=== PATIENT | female | born 1990 | race Caucasian/White ===

== ENCOUNTER 2017-12-02 11:24 | Outpatient (CLI) | payer MEDICAID ==
[2017-12-02 18:56] LABS: BASOPHILS % (AUTO) 0.9 %; EOSINOPHILS # (AUTO) 0.2 10^3/uL (0.0-0.7); HGB - HEMOGLOBIN 13.1 g/dL (12.0-16.0); LYMPHOCYTES # (AUTO) 1.5 10^3/uL (1.5-3.5); LYMPHOCYTES % (AUTO) 30.4 %; MEAN CORPUSCULAR HEMOGLOBIN 29.6 pg (27.0-31.0); MEAN CORPUSCULAR HGB CONC 32.9 g/dL (32.0-36.0); MEAN CORPUSCULAR VOLUME 90.1 fL (81.0-99.0); MEAN PLATELET VOLUME 7.4 fL (7.9-10.8); MONOCYTES # (AUTO) 0.4 10^3/uL (0.0-1.0); MONOCYTES % (AUTO) 7.1 %; NEUTROPHILS # (AUTO) 2.8 10^3/uL (1.5-6.6); NEUTROPHILS % (AUTO) 56.6 %; PLT - PLATELET COUNT 333 10^3/uL (130-450); RED BLOOD COUNT 4.43 10^6/uL (4.20-5.40); RED CELL DISTRIBUTION WIDTH 14.1 % (12.0-15.0)
[2017-12-02 19:08] LABS: ALBUMIN 4.2 g/dL (3.2-5.5); ALBUMIN/GLOBULIN RATIO 1.2 (1.0-2.2); BILIRUBIN,TOTAL 0.4 mg/dL (0.2-1.0); CALCIUM 9.2 mg/dL (8.5-10.3); CREATININE 0.7 mg/dL (0.4-1.0); TOTAL PROTEIN 7.7 g/dL (6.7-8.2)
== END 2017-12-02 11:25 | disposition home or self-care (01) ==
LOC: LAB.N 11:24
PROVIDERS: ATTEND Family Medicine
DX: R53.83 Other fatigue (principal); R19.7 Diarrhea, unspecified; F41.9 Anxiety disorder, unspecified
CPT/HCPCS: 36415; 80053; 84443; 85025; 85651

== ENCOUNTER 2018-04-10 17:57 | Emergency (ER) | payer MEDICAID ==
[2018-04-10 18:12] VITALS: BP 125/89
== END 2018-04-10 18:09 | disposition left against medical advice (07) ==
LOC: ED 17:57
DX: Z53.21 Procedure and treatment not carried out due to patient leaving prior to being seen by health care provider (principal)

== ENCOUNTER 2018-07-01 12:49 | Emergency (ER) | payer MEDICAID | END 2018-07-01 13:55 | disposition left against medical advice (07) | LOC: ED 12:49 | DX: Z53.21 Procedure and treatment not carried out due to patient leaving prior to being seen by health care provider (principal) ==

== ENCOUNTER 2018-07-23 10:38 | Outpatient (CLI) | payer MEDICAID ==
[2018-07-23 20:24] LABS: FOLLICLE STIMULATING HORMONE 3.44 mIU/mL
[2018-07-23 20:25] LABS: LUTEINIZING HORMONE 6.88 mIU/mL
== END 2018-07-23 23:59 | disposition home or self-care (01) ==
LOC: LAB.N 10:38
PROVIDERS: ATTEND Nurse Practitioner Gerontology
DX: Z13.9 Encounter for screening, unspecified (principal)
CPT/HCPCS: 36415; 82670; 83001; 83002

== ENCOUNTER 2018-11-20 08:00 | Outpatient (CLI) | payer MEDICAID ==
[2018-11-20 18:24] LABS: CALCIUM 8.6 mg/dL (8.5-10.3); CREATININE 0.6 mg/dL (0.4-1.0)
[2018-11-20 18:35] LABS: BASOPHILS % (AUTO) 0.5 %; EOSINOPHILS # (AUTO) 0.2 10^3/uL (0.0-0.7); EOSINOPHILS % (AUTO) 2.1 %; HGB - HEMOGLOBIN 13.5 g/dL (12.0-16.0); LYMPHOCYTES # (AUTO) 1.2 10^3/uL (1.5-3.5); MEAN CORPUSCULAR HEMOGLOBIN 29.4 pg (27.0-31.0); MEAN CORPUSCULAR HGB CONC 32.6 g/dL (32.0-36.0); MEAN CORPUSCULAR VOLUME 90.1 fL (81.0-99.0); MEAN PLATELET VOLUME 7.3 fL (7.9-10.8); MONOCYTES # (AUTO) 0.7 10^3/uL (0.0-1.0); MONOCYTES % (AUTO) 9.7 %; NEUTROPHILS # (AUTO) 5.4 10^3/uL (1.5-6.6); NEUTROPHILS % (AUTO) 71.7 %; PLT - PLATELET COUNT 329 10^3/uL (130-450); RED CELL DISTRIBUTION WIDTH 13.1 % (12.0-15.0); WHITE BLOOD COUNT 7.5 x10^3/uL (4.8-10.8)
== END 2018-11-20 23:59 | disposition home or self-care (01) ==
LOC: LAB.WCP 08:00
PROVIDERS: ATTEND Family Medicine
DX: R19.7 Diarrhea, unspecified (principal)
CPT/HCPCS: 36415; 80048; 85025

== ENCOUNTER 2019-04-01 08:00 | Outpatient (CLI) | payer MEDICAID | END 2019-04-01 23:59 | disposition home or self-care (01) | LOC: LAB.R 08:00 | PROVIDERS: ATTEND Nurse Practitioner Gerontology | DX: R19.7 Diarrhea, unspecified (principal) | CPT/HCPCS: 81599; 87045; 87046; 87177; 87209 ==

== ENCOUNTER 2019-04-02 09:00 | Outpatient (CLI) | payer MEDICAID | END 2019-04-02 23:59 | disposition home or self-care (01) | LOC: LAB.R 09:00 | PROVIDERS: ATTEND Nurse Practitioner Gerontology | DX: R19.7 Diarrhea, unspecified (principal) | CPT/HCPCS: 87493 ==

== ENCOUNTER 2019-04-12 16:02 | Emergency (ER) | payer MEDICAID ==
--- NOTE | 2019-04-12 16:52 | ED Physician Documentation ---
History of Present Illness - Stated complaint Stated Complaint: SORE THROAT - Chief complaint Chief Complaint: Heent - Additonal information Additional information: This is a 29-year-old female history of asthma who presents with a feeling of neck discomfort. Patient denies any fever, rhinorrhea, cough, but states earlier today she developed some irritation in her throat, now she feels that her throat is irritated and swollen. This started after blowing her nose. She states that when she swallows it is painful. She denies rash, history of allergic reaction. This began out of the blue, did not start after eating. She denies fever. She feels like "a bone is out of place in the front of my neck" But denies trauma. No numbness, weakness, or vision changes. Review of Systems Constitutional: denies: Fever Throat: reports: Sore throat Cardiac: denies: Chest pain / pressure Respiratory: denies: Dyspnea GI: denies: Abdominal Pain Skin: denies: Rash Immunocompromised: denies: Immunocompromised PD PAST MEDICAL HISTORY - Past Medical History Respiratory: Asthma - Past Surgical History Past Surgical History: No - Present Medications Home Medications: Ambulatory Orders Medication Instructions Recorded Confirmed No Known Home Medications 04/10/18 04/10/18 - Allergies Allergies/Adverse Reactions: Allergies Allergy/AdvReac Type Severity Reaction Status Date / Time No Known Drug Allergies Allergy Verified 04/12/19 16:17 - Social History Does the pt smoke?: No Smoking Status: Never smoker Does the pt drink ETOH?: No Does the pt have substance abuse?: No - Immunizations Immunizations are current?: Yes - POLST Patient has POLST: No PD ED PE NORMAL - Vitals Vital signs reviewed: Yes - General General: Alert and oriented X 3 - HEENT HEENT: PERRL, Ears normal, Moist mucous membranes, Dentition benign, Other (Posterior pharynx is erythematous, there is no exudate. Airway is widely patent. There is some mild anterior lymphadenopathy.) - Neck Neck: Supple, no meningeal sign, No bony TTP, Other (No neck mass) - Cardiac Cardiac: RRR - Respiratory Respiratory: No respiratory distress, Clear bilaterally - Abdomen Abdomen: No: Non tender - Neuro Neuro: ride operator 2-12 intact, No motor deficit, Normal speech. No: Alert and oriented X 3 Results - Vitals Vitals: Vital Signs - 24 hr 04/12/19 04/12/19 16:16 18:14 Temperature 36.9 C 36.5 C Heart Rate 74 71 Respiratory 20 18 Rate Blood Pressure 115/60 125/77 O2 Saturation 100 99 Oxygen O2 Source Room air - Labs Labs: Laboratory Tests 04/12/19 17:31 Group A Strep Rapid Negative - Rads (name of study) XR neck Radiology: Other (Normal soft tissue XR of the neck) PD MEDICAL DECISION MAKING - ED course Complexity details: considered differential (pharyngitis, allergic reaction, URI, foreign body) ED course: Pt is very well appearing on exam, has a widely patent airway, no stridor or wheeze. no signs of anaphylaxis. Her discomfort did not begin after or during eating, and food impaction/foreign body is highly unlikely, and XR of the neck unremarkable. She has mild erythema consistent with a pharyngitis, which is likely viral. Strep swab negative. No neuro symptoms or trauma to suggest dissection. Pt does have some anterior lymphadenopathy. she was given dexamethasone and ibuprofen, and return precautions and PCP follow up discussed. Patient agreed, on repeat evaluation she continues to be very well appearing, and was discharged home. Departure - Departure Disposition: 01 Home, Self Care Clinical Impression: Sore throat Condition: Good Follow-Up: Aminah Walters ARNP [Primary Care Provider] - Comments: You were seen today for throat discomfort. Your x-ray looks okay today, and I think this throat discomfort is likely related to some irritation of your throat, possibly from a virus. We gave you steroid which should help calm down the throat. You may take ibuprofen 600 mg every 6 hours, and Tylenol 650 mg every 6 hours as needed for pain. Return to the emergency department if you are developing any difficulty breathing, neck swelling, or other concerning symptoms Discharge Date/Time: 04/12/19 18:15
[2019-04-12] MEDS ORDERED: DEXAMETHASONE 10 MG/ML VIAL PO STA (17:11)
[2019-04-12] MEDS ORDERED: CHERRY SYRUP 10 ML UDC PO ONE (17:11)
[2019-04-12] MEDS ORDERED: IBUPROFEN 100 MG/5 ML UDC PO STA (17:12)
--- NOTE | 2019-04-12 18:05 | XRAY Report ---
Reason: Anterior neck discomfort "like bone is out of plac Procedure Date: 04/12/2019 Accession Number: [id number] / [id number] Procedure: XR - Neck Soft Tissue CPT Code: Final Report FULL RESULT: EXAM: SOFT TISSUE NECK RADIOGRAPHY EXAM DATE: 04/12/2019 05:22 PM. CLINICAL HISTORY: Anterior neck discomfort like bone is out of place. COMPARISONS: None. TECHNIQUE: 2 views. FINDINGS: Soft Tissues: No prevertebral soft tissue swelling. The epiglottis and aryepiglottic folds are unremarkable. No tonsillar or adenoidal enlargement. No radiopaque foreign body. Regional Skeleton: Unremarkable for age. Other: The visualized lung apices are clear. IMPRESSION: Normal soft tissue neck radiography. [facility]
[2019-04-12 18:15] VITALS: BP 125/77
== END 2019-04-12 18:15 | disposition home or self-care (01) ==
LOC: ED 16:02
DX: J02.9 Acute pharyngitis, unspecified (principal)
CPT/HCPCS: 70360; 87070; 87430; 99282; 99284; A9270

== ENCOUNTER 2019-08-04 11:00 | Outpatient (CLI) | payer MEDICAID | END 2019-08-04 23:59 | disposition home or self-care (01) | LOC: LAB.R 11:00 | PROVIDERS: ATTEND Family Medicine | DX: R30.0 Dysuria (principal) | CPT/HCPCS: 87086 ==

== ENCOUNTER 2020-10-23 13:53 | Emergency (ER) | payer OTHER, MEDICAID ==
--- OUTSIDE RECORDS SUMMARY | 2020-10-23 13:55 | EXTERNAL MEDICAL SUMMARY RPT | Continuity of Care Document ---
:1990 Demographics Phone Unavailable Preferred Language Unknown Marital Status Unknown Moravian Affiliation Unknown Race Unknown Ethnic Group Unknown Author Organization [facility] Address [address] [phone] Phone Care Team Providers Name Role Phone PA-C Unavailable Unavailable Problems date description facility 20201005 Total score? All 20201005 Other and unspecified noninfectious gas troenteritis and All colitis 20201005 Noninfective gastroenteritis and coliti s, unspecified All 20201005 Never smoker All 20201005 Colitis All 20201005 Alcohol use All Vital Signs date measurement value source 20201005 weight_standard 129 lb 20201005 weight_metric 58.51 kg 20201005 temperature_standard 98.4 F 20201005 temperature_metric 36.89 C 20201005 respiration_rate 16 /min 20201005 height_standard 67 in 20201005 height_metric 170.18 cm 20201005 heart_rate 73 /min 20201005 BP_systolic 110 mm[Hg] 20201005 BP_diastolic 62 mm[Hg] 20201005 BMI 20.28 kg/m2
--- NOTE | 2020-10-23 14:20 | ED Physician Documentation ---
PD HPI ABD PAIN - Stated complaint Stated Complaint: RT LOWER ABD PX - Chief complaint Chief Complaint: Abd Pain - History obtained from History obtained from: Patient - History of Present Illness Timing - onset: Yesterday Timing - duration: Days (2) Timing - details: Gradual onset Pain level max: 7 Pain level now: 3 Quality: Sharp, Pain Location: RLQ Radiation: No: Chest, , Lower back, Left flank, Left shoulder, Right flank, Right shoulder, Upper back Improved by: Laying still Worsened by: Moving Associated symptoms: No: Fever, Nausea, Vomiting, Hematemesis, Diarrhea, Constipation, Vaginal bleeding, Vaginal dc Similar symptoms before: Has not had sx before - Additional information Additional information: 30-year-old female with right pelvic pain for the past day and a half. She was seen at the walk-in clinic and sent here for evaluation. No fevers. No nausea. No vomiting. LMP was 2 weeks ago. She states she has felt similar pain in the past but it always resolved on its own and this has lasted longer. Denies any possibility of . Negative urinalysis and negative hCG at the walk-in clinic earlier today. No diarrhea or constipation. Normal appetite. 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 : None HEENT: None Psych: None Musculoskeletal: None Derm: None - Past Surgical History Past Surgical History: No - Present Medications Home Medications: Ambulatory Orders Medication Instructions Recorded Confirmed No Known Home Medications 04/10/18 10/23/20 - Allergies Allergies/Adverse Reactions: Allergies Allergy/AdvReac Type Severity Reaction Status Date / Time No Known Drug Allergies Allergy Verified 10/23/20 13:55 - Social History Does the pt smoke?: No Smoking Status: Never smoker Does the pt drink ETOH?: No Does the pt have substance abuse?: No - Immunizations Immunizations are current?: Yes - POLST Patient has POLST: No PD ED PE NORMAL - Vitals Vital signs reviewed: Yes - General General: Alert and oriented X 3, No acute distress - HEENT HEENT: Moist mucous membranes - Neck Neck: Supple, no meningeal sign - Cardiac Cardiac: RRR - Respiratory Respiratory: No respiratory distress, Clear bilaterally - Abdomen Abdomen: Soft, Non distended, Other (Tender to palpation right low pelvic area. No tenderness at McBurney's point. No peritoneal signs. No rebound or guarding. Negative Rovsing, negative obturator.) - Back Back: No CVA TTP, No spinal TTP - Derm Derm: Warm and dry - Extremities Extremities: No edema, No calf tenderness / cord - Neuro Neuro: Alert and oriented X 3 - Psych Psych: Normal mood, Normal affect Results - Vitals Vitals: Vital Signs - 24 hr 10/23/20 10/23/20 10/23/20 13:55 14:13 16:10 Temperature 36.6 C Heart Rate 64 65 75 Respiratory 16 16 16 Rate Blood Pressure 119/76 105/70 108/73 O2 Saturation 100 100 100 10/23/20 16:35 Temperature 36.5 C Heart Rate 78 Respiratory 18 Rate Blood Pressure 112/80 O2 Saturation 100 Oxygen O2 Source Room air - Labs Labs: Laboratory Tests 10/23/20 10/23/20 14:27 14:27 WBC 8.0 RBC 4.32 Hgb 12.7 Hct 39.5 MCV 91.4 MCH 29.4 MCHC 32.2 RDW 12.1 Plt Count 294 MPV 8.7 Neut # (Auto) 4.8 Lymph # (Auto) 2.2 Placer # (Auto) 0.5 Eos # (Auto) 0.4 Baso # (Auto) 0.1 Absolute Nucleated RBC 0.00 Nucleated RBC % 0.0 Sodium 138 Potassium 4.1 Chloride 102 Carbon Dioxide 30 Anion Gap 6.0 BUN 15 Creatinine 0.8 Estimated GFR (MDRD) 83 L Glucose 81 Calcium 9.2 Total Bilirubin 0.4 AST 16 ALT 17 Alkaline Phosphatase 51 Total Protein 7.1 Albumin 4.3 Globulin 2.8 Albumin/Globulin Ratio 1.5 Lipase 30 - Rads (name of study) pelvic ultrasound Radiology: Prelim report reviewed, EMP read contemporaneously, See rad report (1. No ovarian torsion. Small free fluid. o/w unremarkable exam.) PD MEDICAL DECISION MAKING - ED course Complexity details: reviewed results, re-evaluated patient, considered differential, d/w patient ED course: 30-year-old female with what sounds like a likely ruptured ovarian cyst earlier today. She is midcycle, right low pelvic pain, crescendoed and is now improving. Normal white blood cell count. No peritoneal signs. Normal appetite. No tenderness at McBurney's point. No indication for CT scan at this time. Her pain is down to a 2 out of 10. We will have her monitor herself at home for the next 24 hours and return if she worsens. Patient counseled regarding signs and symptoms for which I believe and urgent re-evaluation would be necessary. Patient with good understanding of and agreement to plan and is comfortable going home at this time This document was made in part using voice recognition software. While efforts are made to proofread this document, sound alike and grammatical errors may occur. Departure - Departure Disposition: 01 Home, Self Care Clinical Impression: Pelvic pain Condition: Good Instructions: ED Cyst Ovarian Follow-Up: Francisca Moses PA-C [Primary Care Provider] - Within 3 Days (for recheck) Comments: Your blood work did not reveal any acute abnormalities today. Your urinalysis was normal with the clinic. You are not . There is some free fluid on your pelvic ultrasound, this could be due to a recently ruptured cyst. If your symptoms worsen in the next 24 hours, please return for repeat evaluation, however if they are resolving, this is likely consistent with a ruptured cyst. You can use Motrin or Tylenol for any pain. Return if you worsen. Discharge Date/Time: 10/23/20 16:42
[2020-10-23 14:34] LABS: BASOPHILS # (AUTO) 0.1 10^3/uL (0.0-0.1); BASOPHILS % (AUTO) 0.9 %; EOSINOPHILS # (AUTO) 0.4 10^3/uL (0.0-0.7); EOSINOPHILS % (AUTO) 4.9 %; HCT - HEMATOCRIT 39.5 % (37.0-47.0); HGB - HEMOGLOBIN 12.7 g/dL (12.0-16.0); LYMPHOCYTES # (AUTO) 2.2 10^3/uL (1.5-3.5); LYMPHOCYTES % (AUTO) 27.5 %; MEAN CORPUSCULAR HEMOGLOBIN 29.4 pg (27.0-31.0); MEAN CORPUSCULAR HGB CONC 32.2 g/dL (32.0-36.0); MEAN CORPUSCULAR VOLUME 91.4 fL (81.0-99.0); MEAN PLATELET VOLUME 8.7 fL (7.9-10.8); MONOCYTES # (AUTO) 0.5 10^3/uL (0.0-1.0); MONOCYTES % (AUTO) 6.8 %; NEUTROPHILS # (AUTO) 4.8 10^3/uL (1.5-6.6); NEUTROPHILS % (AUTO) 59.6 %; PLT - PLATELET COUNT 294 10^3/uL (130-450); RED BLOOD COUNT 4.32 10^6/uL (4.20-5.40); RED CELL DISTRIBUTION WIDTH 12.1 % (12.0-15.0)
--- OUTSIDE RECORDS SUMMARY | 2020-10-23 14:39 | EXTERNAL MEDICAL SUMMARY RPT | Continuity of Care Document ---
:1990 Demographics Phone Unavailable Preferred Language Unknown Marital Status Unknown Taoist Affiliation Unknown Race Unknown Ethnic Group Unknown Author Organization [facility] Address [address] [place] [address] Phone Care Team Providers Name Role Phone Francisca FRANCIS, Unavailable Unavailable Problems date description facility [id number] [...]
[2020-10-23 14:47] LABS: ALBUMIN 4.3 g/dL (3.2-5.5); ALBUMIN/GLOBULIN RATIO 1.5 (1.0-2.2); BILIRUBIN,TOTAL 0.4 mg/dL (0.2-1.0); CALCIUM 9.2 mg/dL (8.5-10.3); CREATININE 0.8 mg/dL (0.4-1.0); POTASSIUM 4.1 mmol/L (3.5-5.0); TOTAL PROTEIN 7.1 g/dL (6.7-8.2)
--- NOTE | 2020-10-23 15:59 | Ultrasound Report ---
PROCEDURE: Pelvic w/Transvag+Doppler Comp INDICATIONS: pelvic pain, R, neg hcg TECHNIQUE: Real-time scanning was performed of the pelvic organs, with image documentation. Additional endovagi nal scanning was necessary due to incomplete visualization of the adnexal and endometrial structures by transabdominal scanning. COMPARISON: None. FINDINGS: No pathologic free abdominal or pelvic fluid. Uterus: Uterus is normal in size at 7.8 x 3.4 x 3.7 cm. The endometrium measures 8.3 mm in combined thickness. Ovaries: Right ovary measures 3.7 x 2.2 x 1.9 cm, volume 8 cc. Left ovary measures 3.4 x 1.8 x 2.0 c m, volume 5.6 cc. Doppler flow is identified bilaterally with the ovaries. Trace dependent fluid.. IMPRESSION: 1. No ovarian torsion. 2. Otherwise unremarkable exam. Reviewed by: Harriett Luna MD on 10/23/2020 3:58 PM PDT Approved by: Harriett Luna MD on 10/23/2020 3:58 PM PDT Station ID: [id number]
[2020-10-23 16:36] VITALS: BP 112/80
== END 2020-10-23 16:42 | disposition home or self-care (01) ==
LOC: ED 13:53
DX: R10.2 Pelvic and perineal pain (principal)
CPT/HCPCS: 36415; 80053; 83690; 85025; 87086; 93975; 99284

== ENCOUNTER 2020-10-23 16:19 | Outpatient (CLI) | payer OTHER, MEDICAID | END 2020-10-23 16:20 | disposition home or self-care (01) | LOC: LAB.N 16:19 | PROVIDERS: ATTEND Nurse Practitioner | DX: R10.9 Unspecified abdominal pain (principal) | CPT/HCPCS: 87086 ==

== ENCOUNTER 2021-03-19 12:17 | Outpatient (CLI) | payer OTHER, MEDICAID ==
--- NOTE | 2021-03-20 13:12 | XRAY Report ---
PROCEDURE: Lumbar Spine 2 View INDICATIONS: STRAIN OF MUSCLE, FASCIA, AND TENDON OF LOWER BACK TECHNIQUE: 3 views of the lumbar spine were acquired. COMPARISON: None. FINDINGS: Bones: 5 [id number] vertebrae are present. There is normal bony alignment. No vertebral body compression fractures. No suspicious bony lesions. Soft tissues: Overlying bowel gas pattern is normal. No suspicious soft tissue calcifications. IMPRESSION: Unremarkable exam. If concern persists, MRI lumbar spine is recommended for further eval uation. Reviewed by: Harriett Luna MD on 03/20/2021 1:11 PM PDT Approved by: Harriett Luna MD on 03/20/2021 1:11 PM PDT Station ID: [id number]
== END 2021-03-19 12:18 ==
LOC: DI.N 12:17
PROVIDERS: ATTEND Nurse Practitioner
DX: S39.012A Strain of muscle, fascia and tendon of lower back, initial encounter (principal)

== ENCOUNTER 2021-03-27 07:32 | Outpatient (CLI) | payer OTHER, MEDICAID | END 2021-03-27 23:59 | disposition home or self-care (01) | LOC: LAB.N 07:32 | PROVIDERS: ATTEND Family Medicine | DX: R06.02 Shortness of breath (principal); Z20.822 Contact with and (suspected) exposure to COVID-19 ==

== ENCOUNTER 2021-05-31 08:00 | Outpatient (CLI) | payer OTHER, MEDICAID ==
[2021-06-04 16:07] LABS: NIL 0.02 IU/mL; TB1-NIL 0.07 IU/mL; TB2-NIL 0.03 IU/mL
== END 2021-05-31 23:59 | disposition home or self-care (01) ==
LOC: LAB.WCP 08:00
PROVIDERS: ATTEND Physician Assistant Medical
DX: Z01.84 Encounter for antibody response examination (principal); Z11.1 Encounter for screening for respiratory tuberculosis
CPT/HCPCS: 36415; 86480; 86787

== ENCOUNTER 2021-08-12 08:38 | Emergency (ER) | payer OTHER, MEDICAID ==
[2021-08-12] MEDS ORDERED: DEXAMETHASONE 10 MG/ML VIAL PO STA (09:44)
[2021-08-12] MEDS ORDERED: KETOROLAC 60 MG/2 ML VIAL IM STA (09:44)
[2021-08-12] MEDS ORDERED: CHERRY SYRUP 10 ML UDC PO ONE (09:44)
--- NOTE | 2021-08-12 09:47 | ED Physician Documentation ---
PD HPI BACK PAIN - Stated complaint Stated Complaint: INJ LOWER BACK - Chief complaint Chief Complaint: Back Pain - History obtained from History obtained from: Patient - History of Present Illness Timing - onset: Yesterday Timing - duration: Days (1) Timing - details: Abrupt onset, Still present Location: Lower Quality: Pain, Spasm, Sharp, Similar to prior episodes (never this bad) Associated symptoms: No: Fever, Weakness, Numbness, Incontinent of urine, Unable to urinate, Hematuria, Incontinent of stool Improves with: Rest, Position Worsened by: Movement, Palpation Similar symptoms before: No diagnosis Recently seen: Not recently seen - Additional information Additional information: Appears well 31-year-old female was 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 This pain was bad enough that she was unable to continue working. She is gone home she had very little relief of the pain she was able to sleep last night today she has 4 out of 10 pain and she has come to the emergency department for evaluation. She is worried about how bad this pain was when it came on. She denies any difficulty with her bowel or bladder she denies any fever or illness. Review of Systems Constitutional: denies: Fever Nose: denies: Congestion Respiratory: denies: Cough GI: reports: Diarrhea. denies: Vomiting Musculoskeletal: reports: Back pain. 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 : None HEENT: None Psych: None Musculoskeletal: None Derm: None - Past Surgical History Past Surgical History: No - Present Medications Home Medications: Ambulatory Orders Medication Instructions Recorded Confirmed No Known Home Medications 04/10/18 10/23/20 - Allergies Allergies/Adverse Reactions: Allergies Allergy/AdvReac Type Severity Reaction Status Date / Time No Known Drug Allergies Allergy Verified 08/12/21 09:04 - Social History Does the pt smoke?: No Smoking Status: Never smoker Does the pt drink ETOH?: No Does the pt have substance abuse?: No - Immunizations Immunizations are current?: Yes - POLST Patient has POLST: No PD ED PE NORMAL - Vitals Vital signs reviewed: Yes (normal ) - General General: Alert and oriented X 3, No acute distress, Well developed/nourished - HEENT HEENT: Atraumatic, PERRL, EOMI - Neck Neck: Supple, no meningeal sign, No bony TTP - Respiratory Respiratory: No respiratory distress - Back Back: No CVA TTP, Other (There is mild tenderness to the lumbo-sacral area/paraspinous muscles without mass, erythema or swelling. ) - Derm Derm: Normal color, Warm and dry, No rash - Extremities Extremities: No deformity, No edema - Neuro Neuro: Alert and oriented X 3, sourcer 2-12 intact, No motor deficit, No sensory deficit, Normal speech Eye Opening: Spontaneous Motor: Obeys Commands Verbal: Oriented GCS Score: 15 - Psych Psych: Normal mood, Normal affect Results - Vitals Vitals: Vital Signs - 24 hr 08/12/21 08:50 Temperature 36.8 C Heart Rate 82 Respiratory 15 Rate Blood Pressure 105/81 H O2 Saturation 100 Oxygen O2 Source Room air PD MEDICAL DECISION MAKING - ED course Complexity details: reviewed old records, considered differential, d/w patient ED course: 31-year-old female previously well has had a prolonged position injury to her lower back she seems to be improving from this already. She is given dexamethasone and Toradol and will like not likely need further medication. I discussed the expectations with the patient and I have given her a note for work for 2 days. Departure - Departure Disposition: 01 Home, Self Care Clinical Impression: Lumbar strain Qualifiers: Encounter type: initial encounter Qualified Code(s): S39.012A - Strain of muscle, fascia and tendon of lower back, initial encounter Condition: Stable Instructions: ED Sprain Strain Lumbar, ED Spasm Back No Trauma Follow-Up: SKYLAR MARRERO MD [Primary Care Provider] - Forms: Activity restrictions
[2021-08-12 10:22] VITALS: BP 105/61
== END 2021-08-12 10:30 | disposition home or self-care (01) ==
LOC: ED 08:38
DX: S39.012A Strain of muscle, fascia and tendon of lower back, initial encounter (principal); X50.1XXA Overexertion from prolonged static or awkward postures, initial encounter; Y93.F1 Activity, caregiving, bathing; Y99.0 Civilian activity done for income or pay
CPT/HCPCS: 96372; 99282; 99283; A9270

== ENCOUNTER 2022-04-18 08:00 | Outpatient (CLI) | payer OTHER, MEDICAID | END 2022-04-18 23:59 | disposition home or self-care (01) | LOC: LAB.N 08:00 | PROVIDERS: ATTEND Registered Nurse | DX: R10.31 Right lower quadrant pain (principal); R30.9 Painful micturition, unspecified | CPT/HCPCS: 87086 ==

== ENCOUNTER 2022-06-22 09:26 | Emergency (ER) | payer OTHER, MEDICAID ==
--- OUTSIDE RECORDS SUMMARY | 2022-06-22 10:07 | EXTERNAL MEDICAL SUMMARY RPT | Continuity of Care Document ---
:1990 Author Organization [facility] Address [address] [place] [address] Phone Care Team Providers Name Role Phone Maximo Sagastume Unavailable Unavailable Allergies and Intolerances date description facility type (no date) No Known Drug Allergies [facility] ([facility] own) Encounters No information. Functional Status No information. Immunizations No information. Medications No information. Problems date description facility 2022-04-21 00:00 Right lower quadrant abdominal tenderne [facility] Procedures No information. Results/Labs test date author facility value unit interpret ation Result panel 1 (unknown) (no date) ([facility] Result panel 2 (unknown) (no date) (unknown[facility]) Result panel 3 (unknown) (no date) (unknown[facility]) Result panel 4 (unknown) (no date) (unknown[facility]) Result panel 5 (unknown) (no date) (unknown[facility]) Result panel 6 (unknown) (no date) (unknown[facility]) Result panel 7 (unknown) (no date) (unknown[facility]) Result panel 8 (unknown) (no date) (unknown[facility]) Result panel 9 (unknown) (no date) (unknown[facility]) Result panel 10 (unknown) (no date) (unknown[facility]) Result panel 11 (unknown) (no date) (unknown[facility]) Result panel 12 (unknown) (no date) (unknown[facility]) Result panel 13 (unknown) (no date) (unknown[facility]) Result panel 14 (unknown) (no date) (unknown[facility]) Result panel 15 (unknown) (no date) (unknown[facility]) Result panel 16 (unknown) (no date) (unknown[facility]) Result panel 17 (unknown) (no date) (unknown[facility]) Result panel 18 (unknown) (no date) (unknown[facility]) Result panel 19 (unknown) (no date) (unknown[facility]) Result panel 20 (unknown) (no date) (unknown[facility]) Result panel 21 (unknown) (no date) (unknown[facility]) Result panel 22 (unknown) (no date) (unknown[facility]) Result panel 23 (unknown) (no date) (unknown[facility]) Result panel 24 (unknown) (no date) (unknown[facility]) Result panel 25 (unknown) (no date) (unknown[facility]) Result panel 26 (unknown) (no date) (unknown[facility]) Result panel 27 (unknown) (no date) (unknown[facility]) Result panel 28 (unknown) (no date) (unknown[facility]) Result panel 29 (unknown) (no date) (unknown[facility]) Result panel 30 (unknown) (no date) (unknown[facility]) Result panel 31 (unknown) (no date) (unknown[facility]) Result panel 32 (unknown) (no date) (unknown[facility]) Result panel 33 (unknown) (no date) (unknown[facility]) Result panel 34 (unknown) (no date) (unknown) [facility]) Result panel 35 (unknown) (no date) (unknown[facility]) Result panel 36 (unknown) (no date) (unknown[facility]) Result panel 37 (unknown) (no date) (unknown[facility]) Result panel 38 (unknown) (no date) (unknown[facility]) Result panel 39 (unknown) (no date) (unknown[facility]) Result panel 40 (unknown) (no date) (unknown) [facility]) Result panel 41 (unknown) (no date) (unknown[facility]) Result panel 42 (unknown) (no date) (unknown[facility]) Result panel 43 (unknown) (no date) (unknown[facility]) Result panel 44 (unknown) (no date) (unknown[facility]) Result panel 45 (unknown) (no date) (unknown[facility]) Result panel 46 (unknown) (no date) (unknown[facility]) Result panel 47 (unknown) (no date) (unknown[facility]) Result panel 48 (unknown) (no date) (unknown[facility]) Result panel 49 (unknown) (no date) (unknown[facility]) Result panel 50 (unknown) (no date) (unknown[facility]) Result panel 51 (unknown) (no date) (unknown[facility]) Result panel 52 (unknown) (no date) (unknown[facility]) Result panel 53 (unknown) (no date) (unknown) [facility]) Result panel 54 (unknown) (no date) (unknown[facility]) Result panel 55 (unknown) (no date) (unknown[facility]) Result panel 56 (unknown) (no date) (unknown[facility]) Result panel 57 (unknown) (no date) (unknown[facility]) Result panel 58 (unknown) (no date) (unknown[facility]) Result panel 59 (unknown) (no date) (unknown[facility]) Result panel 60 (unknown) (no date) (unknown[facility]) Result panel 61 (unknown) (no date) (unknown[facility]) Result panel 62 (unknown) (no date) (unknown[facility]) Result panel 63 (unknown) (no date) (unknown[facility]) Result panel 64 (unknown) (no date) (unknown[facility]) Result panel 65 (unknown) (no date) (unknown[facility]) Result panel 66 (unknown) (no date) (unknown[facility]) Result panel 67 (unknown) (no date) (unknown[facility]) Result panel 68 (unknown) (no date) (unknown[facility]) Result panel 69 (unknown) (no date) (unknown[facility]) Result panel 70 (unknown) (no date) (unknown[facility]) Result panel 71 (unknown) (no date) (unknown[facility]) Result panel 72 (unknown) (no date) (unknown[facility]) Result panel 73 (unknown) (no date) (unknown[facility]) Result panel 74 (unknown) (no date) (unknown[facility]) Result panel 75 (unknown) (no date) (unknown[facility]) Result panel 76 (unknown) (no date) (unknown[facility]) Result panel 77 (unknown) (no date) (unknown[facility]) Result panel 78 (unknown) (no date) (unknown[facility]) Result panel 79 (unknown) (no date) (unknown[facility]) Result panel 80 (unknown) (no date) (unknown[facility]) Result panel 81 (unknown) (no date) (unknown[facility]) Result panel 82 (unknown) (no date) (unknown) [facility]) Result panel 83 (unknown) (no date) (unknown[facility]) Result panel 84 (unknown) (no date) (unknown[facility]) Result panel 85 (unknown) (no date) (unknown[facility]) Result panel 86 (unknown) (no date) (unknown[facility]) Result panel 87 (unknown) (no date) (unknown[facility]) Result panel 88 (unknown) (no date) (unknown[facility]) Result panel 89 (unknown) (no (unknown) (unknown) (no value) (units (unk nown) date) unknown) (unknown) (no (unknown) (unknown) 150 mg PO DAILY (units (unknown) date) unknown) (unknown) (no (unknown) (unknown) Age/Sex: 32 / F (units (unknown) date) unknown) (unknown) (no (unknown) (unknown) Allergies (units (unkn own) date) unknown) (unknown) (no (unknown) (unknown) Allergy/AdvReac (units (unknown) date) Type Severity unknown) Reaction Status Date / Time (unknown) (no (unknown) (unknown) Anemia (-2017) (units (unknown) date) unknown) (unknown) (no (unknown) (unknown) Anxiety (-2015) (units (unknown) date) unknown) (unknown) (no (unknown) (unknown) Asthma (-1988) (units (unknown) date) unknown) (unknown) (no (unknown) (unknown) Chicken pox (units (un known) date) (-1996) unknown) (unknown) (no (unknown) (unknown) : 1990 (units (unknown) date) Acct:[id number] unknown) (unknown) (no (unknown) (unknown) Date of (units (unkno wn) date) Service: unknown) 04/21/22 (unknown) (no (unknown) (unknown) Departure (units (unkn own) date) unknown) (unknown) (no (unknown) (unknown) Depression (units (unk nown) date) unknown) (unknown) (no (unknown) (unknown) Discharge Plan (units (unknown) date) unknown) (unknown) (no (unknown) (unknown) ER Physician: (units ( unknown) date) Alanis Calderón unknown) (unknown) (no (unknown) (unknown) Emergency (units (unkn own) date) Report unknown) (unknown) (no (unknown) (unknown) Family History (units (unknown) date) (Updated unknown) 06/28/21 @ 18:47 by Sophia Gama) (unknown) (no (unknown) (unknown) GI bleeding (units (un known) date) () unknown) (unknown) (no (unknown) (unknown) General (units (unkno wn) date) unknown) (unknown) (no (unknown) (unknown) Grandfather (units (un known) date) unknown) Parkinson's disease (unknown) (no (unknown) (unknown) Grandfather (units (un known) date) unknown) Prostate cancer (unknown) (no (unknown) (unknown) Grandmother (units (un known) date) Breast unknown) cancer (unknown) (no (unknown) (unknown) HPI - General (units ( unknown) date) Adult unknown) (unknown) (no (unknown) (unknown) Home (units (unkno wn) date) Medications unknown) (unknown) (no (unknown) (unknown) Maximo Sagastume (units (unknown) date) MD [facility] [Primary unknown) Care Provider] (unknown) (no (unknown) (unknown) [facility] (units (unknown) date) [address] unknown) [place] [address] (unknown) (no (unknown) (unknown) [id number] (units (unk nown) date) unknown) (unknown) (no (unknown) (unknown) Medical History (units (unknown) date) (Updated unknown) 06/28/21 @ 18:45 by Sophia Gama) (unknown) (no (unknown) (unknown) Medication (units (unk nown) date) Instructions unknown) Recorded Confirmed (unknown) (no (unknown) (unknown) No Action (units (unkn own) date) unknown) (unknown) (no (unknown) (unknown) No Known Drug (units ( unknown) date) Allergies unknown) Allergy Verified 03/27/21 09:52 (unknown) (no (unknown) (unknown) Ovarian cyst (units (u nknown) date) () unknown) (unknown) (no (unknown) (unknown) Patient History (units (unknown) date) unknown) (unknown) (no (unknown) (unknown) Patient: (units (unkno wn) date) Selin Valdez unknown) amira Guevara MR#: (unknown) (no (unknown) (unknown) Prescriptions: (units (unknown) date) unknown) (unknown) (no (unknown) (unknown) Referrals: (units (unk nown) date) unknown) (unknown) (no (unknown) (unknown) Related Data (units (u nknown) date) unknown) (unknown) (no (unknown) (unknown) Signed By: (units (unk nown) date) unknown) (unknown) (no (unknown) (unknown) Smoking Status: (units (unknown) date) Never smoker unknown) (unknown) (no (unknown) (unknown) Social History (units (unknown) date) (Reviewed unknown) 01/30/19 @ 12:05 by MONICA Vallejo) (unknown) (no (unknown) (unknown) Stated (units (unkno wn) date) complaint: unknown) apendix worries (unknown) (no (unknown) (unknown) Substance Use (units ( unknown) date) Type: does not unknown) use (unknown) (no (unknown) (unknown) Time Seen by (units (u nknown) date) Provider: unknown) 04/21/22 08:53 (unknown) (no (unknown) (unknown) bupropion HCl (units ( unknown) date) 150 mg tablet,12 unknown) hr 150 mg PO DAILY 08/09/21 08/09/21 (unknown) (no (unknown) (unknown) bupropion HCl (units ( unknown) date) [Wellbutrin SR] unknown) 150 mg tablet sustained-releas e 12 hr (unknown) (no (unknown) (unknown) sustained-relea (units (unknown) date) se (Wellbutrin unknown) SR) Result panel 90 (unknown) (no date) (unknown) (unknown) 0 /ul (unkn own) (unknown) (no date) (unknown) (unknown) 0.5 % (unkn own) (unknown) (no date) (unknown) (unknown) 12.7 % (unkn own) (unknown) (no date) (unknown) (unknown) 12.9 g/dl (unkn own) (unknown) (no date) (unknown) (unknown) 1600 /ul (unkn own) (unknown) (no date) (unknown) (unknown) 26.1 % (unkn own) (unknown) (no date) (unknown) (unknown) 29.5 pg (unkn own) (unknown) (no date) (unknown) (unknown) 300 /ul (unkn own) (unknown) (no date) (unknown) (unknown) 33.8 % (unkn own) (unknown) (no date) (unknown) (unknown) 378 x10 3/ul (unkn own) (unknown) (no date) (unknown) (unknown) 38.0 % (unkn own) (unknown) (no date) (unknown) (unknown) 3800 /ul (unkn own) (unknown) (no date) (unknown) (unknown) 4.36 x10 6/ul (unkn own) (unknown) (no date) (unknown) (unknown) 4.5 % (unkn own) (unknown) (no date) (unknown) (unknown) 400 /ul (unkn own) (unknown) (no date) (unknown) (unknown) 6.1 x10 3/ul (unkn own) (unknown) (no date) (unknown) (unknown) 6.6 % (unkn own) (unknown) (no date) (unknown) (unknown) 62.3 % (unkn own) (unknown) (no date) (unknown) (unknown) 87.3 fl (unkn own) Result panel 91 (unknown) (no date) (unknown) (unknown) > 60 ml/min (unkn own) (unknown) (no date) (unknown) (unknown) > 60 ml/min (unkn own) (unknown) (no date) (unknown) (unknown) 0.3 mg/dl (unkn own) (unknown) (no date) (unknown) (unknown) 0.83 mg/dl (unkn own) (unknown) (no date) (unknown) (unknown) 1.2 (units unknown) (unknown) (unknown) (no date) (unknown) (unknown) 102 mmol/l (unkn own) (unknown) (no date) (unknown) (unknown) 14 mg/dl (unkn own) (unknown) (no date) (unknown) (unknown) 140 mmol/l (unkn own) (unknown) (no date) (unknown) (unknown) 16.9 (units unknown) (unknown) (unknown) (no date) (unknown) (unknown) 18 iu/l (unkn own) (unknown) (no date) (unknown) (unknown) 20 iu/l (unkn own) (unknown) (no date) (unknown) (unknown) 28 mmol/l (unkn own) (unknown) (no date) (unknown) (unknown) 3.5 g/dl (unkn own) (unknown) (no date) (unknown) (unknown) 3.6 mmol/l (unkn own) (unknown) (no date) (unknown) (unknown) 4.3 g/dl (unkn own) (unknown) (no date) (unknown) (unknown) 60 u/l (unkn own) (unknown) (no date) (unknown) (unknown) 7.8 g/dl (unkn own) (unknown) (no date) (unknown) (unknown) 82 mg/dl (unkn own) (unknown) (no date) (unknown) (unknown) 82 mg/dl (unkn own) (unknown) (no date) (unknown) (unknown) 9.0 mg/dl (unkn own) Result panel 92 (unknown) (no (unknown) (unknown) (no value) (units (unk nown) date) unknown) (unknown) (no (unknown) (unknown) <Electronically (units (unknown) date) signed by Alanis Guevara unknown) MD Kaitlynn> (unknown) (no (unknown) (unknown) 09:09 (units (unkno wn) date) unknown) (unknown) (no (unknown) (unknown) 09:16 09:16 (units (un known) date) unknown) (unknown) (no (unknown) (unknown) 04/21/22 09:16 (units (unknown) date) unknown) (unknown) (no (unknown) (unknown) 04/21/22 1012 (units ( unknown) date) unknown) (unknown) (no (unknown) (unknown) 04/21/22 04/21/22 (units (unknown) date) Range/Units unknown) (unknown) (no (unknown) (unknown) 04/21/22 (units (unkno wn) date) unknown) (unknown) (no (unknown) (unknown) 150 mg PO DAILY (units (unknown) date) unknown) (unknown) (no (unknown) (unknown) 32-year-old woman (units (unknown) date) who had moderate unknown) urinary tract symptoms along with mild right (unknown) (no (unknown) (unknown) ALT 18 (<35) IU/L (units (unknown) date) unknown) (unknown) (no (unknown) (unknown) AST 20 (14-36) (units (unknown) date) IU/L unknown) (unknown) (no (unknown) (unknown) Abdomen: Soft, (units (unknown) date) very mild unknown) suprapubic to right lower quadrant tenderness without (unknown) (no (unknown) (unknown) Abdominal right (units (unknown) date) lower quadrant unknown) tenderness (unknown) (no (unknown) (unknown) Activity (units (unkno wn) date) Restrictions/Addit unknown) ional Instructions: (unknown) (no (unknown) (unknown) Age/Sex: 32 / F (units (unknown) date) unknown) (unknown) (no (unknown) (unknown) Albumin 4.3 (units (un known) date) (3.5-5.0) g/dL unknown) (unknown) (no (unknown) (unknown) Albumin/Globulin (units (unknown) date) Ratio 1.2 unknown) (1.0-2.8) (unknown) (no (unknown) (unknown) Alkaline (units (unkno wn) date) Phosphatase 60 unknown) (38-126) U/L (unknown) (no (unknown) (unknown) Allergies (units (unkn own) date) unknown) (unknown) (no (unknown) (unknown) Allergy/AdvReac (units (unknown) date) Type Severity unknown) Reaction Status Date / Time (unknown) (no (unknown) (unknown) Anemia (-2017) (units (unknown) date) unknown) (unknown) (no (unknown) (unknown) Anxiety (-2015) (units (unknown) date) unknown) (unknown) (no (unknown) (unknown) Asthma (-1988) (units (unknown) date) unknown) (unknown) (no (unknown) (unknown) BUN 14 (7-17) (units ( unknown) date) mg/dL unknown) (unknown) (no (unknown) (unknown) BUN/Creatinine (units (unknown) date) Ratio 16.9 (6-22) unknown) (unknown) (no (unknown) (unknown) Baso # (Auto) 0 (units (unknown) date) (0-100) /uL unknown) (unknown) (no (unknown) (unknown) Baso % (Auto) 0.5 (units (unknown) date) (0-2) % unknown) (unknown) (no (unknown) (unknown) Bedside Urine (units ( unknown) date) Bilirubin - unknown) Negative (unknown) (no (unknown) (unknown) Bedside Urine (units ( unknown) date) Glucose Negative unknown) (unknown) (no (unknown) (unknown) Bedside Urine (units ( unknown) date) Ketone - Negative unknown) (unknown) (no (unknown) (unknown) Bedside Urine (units ( unknown) date) Leukocytes - unknown) Negative (unknown) (no (unknown) (unknown) Bedside Urine (units ( unknown) date) Nitrite - Negative unknown) (unknown) (no (unknown) (unknown) Bedside Urine (units ( unknown) date) Occult Blood - unknown) Negative (unknown) (no (unknown) (unknown) Bedside Urine (units ( unknown) date) Protein - Negative unknown) (unknown) (no (unknown) (unknown) Bedside Urine (units ( unknown) date) Urobilinogen - unknown) Negative (unknown) (no (unknown) (unknown) Bedside Urine pH (units (unknown) date) 6.5 unknown) (unknown) (no (unknown) (unknown) Blood Pressure (units (unknown) date) 119/66 04/21/22 unknown) 09:09 (unknown) (no (unknown) (unknown) Blood Pressure (units (unknown) date) unknown) (unknown) (no (unknown) (unknown) Calcium 9.0 (units (un known) date) (8.4-10.2) mg/dL unknown) (unknown) (no (unknown) (unknown) Carbon Dioxide 28 (units (unknown) date) (22-32) mmol/L unknown) (unknown) (no (unknown) (unknown) Cardiac: Regular (units (unknown) date) rate and rhythm no unknown) murmurs no bruits (unknown) (no (unknown) (unknown) Chicken pox (units (un known) date) () unknown) (unknown) (no (unknown) (unknown) Chief complaint: (units (unknown) date) Abdominal Pain unknown) (unknown) (no (unknown) (unknown) Chloride 102 (units (u nknown) date) (98-107) mmol/L unknown) (unknown) (no (unknown) (unknown) Clinical (units (unkno wn) date) Impression: unknown) (unknown) (no (unknown) (unknown) Clinical exam (units ( unknown) date) does not suggest a unknown) developing or worsening appendicitis. (unknown) (no (unknown) (unknown) Complete Blood (units (unknown) date) Count AUTO DIFF unknown) Stat (unknown) (no (unknown) (unknown) Comprehensive (units ( unknown) date) Metabolic Panel unknown) Stat (unknown) (no (unknown) (unknown) Course (units (unkno wn) date) unknown) (unknown) (no (unknown) (unknown) Creatinine 0.83 (units (unknown) date) (0.52-1.04) mg/dL unknown) (unknown) (no (unknown) (unknown) : 1990 (units (unknown) date) Acct:[id number] unknown) (unknown) (no (unknown) (unknown) Date of Service: (units (unknown) date) 04/21/22 unknown) (unknown) (no (unknown) (unknown) Departure (units (unkn own) date) unknown) (unknown) (no (unknown) (unknown) Depression (units (unk nown) date) unknown) (unknown) (no (unknown) (unknown) Discharge Plan (units (unknown) date) unknown) (unknown) (no (unknown) (unknown) ED Orders (units (unkn own) date) unknown) (unknown) (no (unknown) (unknown) ER Physician: (units ( unknown) date) Alanis Calderón unknown) (unknown) (no (unknown) (unknown) Emergency Report (units (unknown) date) unknown) (unknown) (no (unknown) (unknown) Eos # (Auto) 300 (units (unknown) date) (0-450) /uL unknown) (unknown) (no (unknown) (unknown) Eos % (Auto) 4.5 (units (unknown) date) H (2-4) % unknown) (unknown) (no (unknown) (unknown) Esterase (units (unkno wn) date) unknown) (unknown) (no (unknown) (unknown) Estimated GFR > (units (unknown) date) 60 (>60) mL/min unknown) (unknown) (no (unknown) (unknown) Exam (units (unkno wn) date) unknown) (unknown) (no (unknown) (unknown) Extremities: No (units (unknown) date) trauma, well unknown) perfused (unknown) (no (unknown) (unknown) Family History (units (unknown) date) (Updated 06/28/21 unknown) @ 18:47 by Sophia Gama) (unknown) (no (unknown) (unknown) Full and (units (unkno wn) date) symmetrical air unknown) movement (unknown) (no (unknown) (unknown) GI bleeding (units (un known) date) () unknown) (unknown) (no (unknown) (unknown) General (units (unkno wn) date) unknown) (unknown) (no (unknown) (unknown) General: Healthy (units (unknown) date) appearing, in no unknown) acute distress. Able to give a complete and (unknown) (no (unknown) (unknown) Globulin 3.5 (units (u nknown) date) (1.7-4.1) g/dL unknown) (unknown) (no (unknown) (unknown) Glucose 82 (units (unk nown) date) (70-100) mg/dL unknown) (unknown) (no (unknown) (unknown) Grandfather (units (un known) date) unknown) Parkinson's disease (unknown) (no (unknown) (unknown) Grandfather (units (un known) date) Prostate unknown) cancer (unknown) (no (unknown) (unknown) Grandmother (units (un known) date) Breast unknown) cancer (unknown) (no (unknown) (unknown) HEENT: Moist (units (u nknown) date) mucous membranes, unknown) normal sclera with reactive pupils, (unknown) (no (unknown) (unknown) HPI - General (units ( unknown) date) Adult unknown) (unknown) (no (unknown) (unknown) HPI narrative: (units (unknown) date) unknown) (unknown) (no (unknown) (unknown) Hct 38.0 (36-46) (units (unknown) date) % unknown) (unknown) (no (unknown) (unknown) Hgb 12.9 (units (unkno wn) date) (12.0-16.0) g/dL unknown) (unknown) (no (unknown) (unknown) History of (units (unk nown) date) Present Illness unknown) (unknown) (no (unknown) (unknown) Home Medications (units (unknown) date) unknown) (unknown) (no (unknown) (unknown) Maximo Sagastume, (units (unknown) date) [Primary Care unknown) Provider] (unknown) (no (unknown) (unknown) If you find that (units (unknown) date) you are getting unknown) worse or develop any new symptoms, please feel (unknown) (no (unknown) (unknown) Initial Vital (units ( unknown) date) Signs unknown) (unknown) (no (unknown) (unknown) Initial Vital (units ( unknown) date) Signs: unknown) (unknown) (no (unknown) (unknown) Instructions: DI (units (unknown) date) for Appendicitis unknown) -- Adult (unknown) (no (unknown) (unknown) [facility] (units (unknown) date) [address] unknown) [place] [address] (unknown) (no (unknown) (unknown) Lab Data (units (unkno wn) date) unknown) (unknown) (no (unknown) (unknown) Lab Results (units (un known) date) unknown) (unknown) (no (unknown) (unknown) Labs: (units (unkno wn) date) unknown) (unknown) (no (unknown) (unknown) Lymph # (Auto) (units (unknown) date) 1600 ([id number]) unknown) /uL (unknown) (no (unknown) (unknown) Lymph % (Auto) (units (unknown) date) 26.1 (25-40) % unknown) (unknown) (no (unknown) (unknown) [id number] (units (unk nown) date) unknown) (unknown) (no (unknown) (unknown) MCH 29.5 (26-34) (units (unknown) date) PG unknown) (unknown) (no (unknown) (unknown) MCHC 33.8 (30-36) (units (unknown) date) % unknown) (unknown) (no (unknown) (unknown) MCV 87.3 (80-100) (units (unknown) date) fL unknown) (unknown) (no (unknown) (unknown) MDM Narrative (units ( unknown) date) unknown) (unknown) (no (unknown) (unknown) Medical Decision (units (unknown) date) Making unknown) (unknown) (no (unknown) (unknown) Medical History (units (unknown) date) (Updated 04/21/22 unknown) @ 10:12 by Alanis Calderón MD) (unknown) (no (unknown) (unknown) Medical decision (units (unknown) date) making narrative: unknown) (unknown) (no (unknown) (unknown) Medication (units (unk nown) date) Instructions unknown) Recorded Confirmed (unknown) (no (unknown) (unknown) [place] # (Auto) 400 (units (unknown) date) (0-900) /uL unknown) (unknown) (no (unknown) (unknown) [place] % (Auto) 6.6 (units (unknown) date) (3-14) % unknown) (unknown) (no (unknown) (unknown) Narrative: (units (unk nown) date) unknown) (unknown) (no (unknown) (unknown) Neck: , supple (units (unknown) date) unknown) (unknown) (no (unknown) (unknown) Neurologic: (units (un known) date) Grossly unknown) neurologically intact with no obvious asymmetries or (unknown) (no (unknown) (unknown) Neut # (Auto) (units ( unknown) date) 3800 ([id number]) unknown) /uL (unknown) (no (unknown) (unknown) Neut % (Auto) (units ( unknown) date) 62.3 (50-75) % unknown) (unknown) (no (unknown) (unknown) No Action (units (unkn own) date) unknown) (unknown) (no (unknown) (unknown) No Known Drug (units ( unknown) date) Allergies Allergy unknown) Verified 04/21/22 09:12 (unknown) (no (unknown) (unknown) Ordered: (units (unkno wn) date) unknown) (unknown) (no (unknown) (unknown) Orders (units (unkno wn) date) unknown) (unknown) (no (unknown) (unknown) Otherwise healthy (units (unknown) date) 32-year-old woman unknown) presents with concerns for appendicitis. (unknown) (no (unknown) (unknown) Ovarian cyst (units (u nknown) date) (-2019) unknown) (unknown) (no (unknown) (unknown) Oxygen Delivery (units (unknown) date) Method 04/21/22 unknown) 09:09 (unknown) (no (unknown) (unknown) Oxygen Delivery (units (unknown) date) Method Room Air unknown) (unknown) (no (unknown) (unknown) Patient (units (unkno wn) date) Disposition: Home unknown) (unknown) (no (unknown) (unknown) Patient History (units (unknown) date) unknown) (unknown) (no (unknown) (unknown) Patient: (units (unkno wn) date) Lorraine Valdez unknown) L MR#: (unknown) (no (unknown) (unknown) Plt Count 378 (units ( unknown) date) (150-400) X103/uL unknown) (unknown) (no (unknown) (unknown) Point of Care (units ( unknown) date) Testing unknown) (unknown) (no (unknown) (unknown) Point of care (units ( unknown) date) testing: unknown) (unknown) (no (unknown) (unknown) Possibility of a (units (unknown) date) ruptured ovarian unknown) cyst is discussed with patient. If it has (unknown) (no (unknown) (unknown) Potassium 3.6 (units ( unknown) date) (3.4-5.1) mmol/L unknown) (unknown) (no (unknown) (unknown) Test (units (unknown) date) Results Negative unknown) (unknown) (no (unknown) (unknown) Prescriptions: (units (unknown) date) unknown) (unknown) (no (unknown) (unknown) Presence of (units (un known) date) rebound: absent unknown) Qualified Code(s): R10.813 - Right lower quadrant (unknown) (no (unknown) (unknown) Psych: (units (unkno wn) date) Cooperative, unknown) appropriate insight and affect (unknown) (no (unknown) (unknown) Pulse Oximetry (units (unknown) date) 100 04/21/22 09:09 unknown) (unknown) (no (unknown) (unknown) Pulse Oximetry (units (unknown) date) 100 unknown) (unknown) (no (unknown) (unknown) Pulse Rate 84 (units ( unknown) date) 04/21/22 09:09 unknown) (unknown) (no (unknown) (unknown) Pulse Rate 84 (units ( unknown) date) unknown) (unknown) (no (unknown) (unknown) Qualifiers: (units (un known) date) unknown) (unknown) (no (unknown) (unknown) RBC 4.36 (units (unkno wn) date) (4.0-5.2) X106/uL unknown) (unknown) (no (unknown) (unknown) RDW 12.7 (units (unkno wn) date) (11.6-14.8) % unknown) (unknown) (no (unknown) (unknown) Referrals: (units (unk nown) date) unknown) (unknown) (no (unknown) (unknown) Related Data (units (u nknown) date) unknown) (unknown) (no (unknown) (unknown) Remainder of (units (u nknown) date) complete review of unknown) systems is otherwise unremarkable except for (unknown) (no (unknown) (unknown) Respiratory Rate (units (unknown) date) 16 04/21/22 09:09 unknown) (unknown) (no (unknown) (unknown) Respiratory Rate (units (unknown) date) 16 unknown) (unknown) (no (unknown) (unknown) Respiratory: (units (u nknown) date) Lungs are clear to unknown) auscultation, no wheezing no rales no rhonchi. (unknown) (no (unknown) (unknown) Result diagrams: (units (unknown) date) unknown) (unknown) (no (unknown) (unknown) Review of Systems (units (unknown) date) unknown) (unknown) (no (unknown) (unknown) She was seen in (units (unknown) date) urgent care on the unknown) , diagnosed with a urinary tract (unknown) (no (unknown) (unknown) She woke up this (units (unknown) date) morning and is unknown) pain-free but still somewhat concerned regarding (unknown) (no (unknown) (unknown) Signed By: (units (unk nown) date) unknown) (unknown) (no (unknown) (unknown) Skin: Warm and (units (unknown) date) dry, no rashes unknown) (unknown) (no (unknown) (unknown) Smoking Status: (units (unknown) date) Never smoker unknown) (unknown) (no (unknown) (unknown) Social History (units (unknown) date) (Reviewed 01/30/19 unknown) @ 12:05 [facility]) (unknown) (no (unknown) (unknown) Sodium 140 (units (unk nown) date) (137-145) mmol/L unknown) (unknown) (no (unknown) (unknown) Stated complaint: (units (unknown) date) apendix worries unknown) (unknown) (no (unknown) (unknown) Substance Use (units ( unknown) date) Type: does not use unknown) (unknown) (no (unknown) (unknown) Temperature 98.6 (units (unknown) date) F 04/21/22 09:09 unknown) (unknown) (no (unknown) (unknown) Temperature 98.6 (units (unknown) date) F unknown) (unknown) (no (unknown) (unknown) Thank you for (units ( unknown) date) coming in today unknown) (unknown) (no (unknown) (unknown) The fact that the (units (unknown) date) right lower unknown) quadrant tenderness is essentially gone this (unknown) (no (unknown) (unknown) Time Seen by (units (u nknown) date) Provider: 04/21/22 unknown) 08:53 (unknown) (no (unknown) (unknown) Total Bilirubin (units (unknown) date) 0.3 (0.2-1.3) unknown) mg/dL (unknown) (no (unknown) (unknown) Total Protein 7.8 (units (unknown) date) (6.3-8.2) g/dL unknown) (unknown) (no (unknown) (unknown) UTI (urinary (units (u nknown) date) tract infection) unknown) (unknown) (no (unknown) (unknown) Urinary tract (units ( unknown) date) infection type: unknown) acute cystitis Hematuria presence: without (unknown) (no (unknown) (unknown) Urine Dip (units (unkn own) date) unknown) (unknown) (no (unknown) (unknown) Urine Specific (units (unknown) date) Happy 1.005 unknown) (unknown) (no (unknown) (unknown) Vital Signs - 8 (units (unknown) date) hr unknown) (unknown) (no (unknown) (unknown) Vital Signs (units (un known) date) unknown) (unknown) (no (unknown) (unknown) Vital signs: (units (u nknown) date) unknown) (unknown) (no (unknown) (unknown) WBC 6.1 (units (unkno wn) date) (4.5-11.0) X103/uL unknown) (unknown) (no (unknown) (unknown) Your lab work was (units (unknown) date) very reassuring. unknown) There is no evidence of infection, kidney (unknown) (no (unknown) (unknown) Your urine is (units ( unknown) date) clear today, the unknown) antibiotics are working. (unknown) (no (unknown) (unknown) [Embedded Image (units (unknown) date) Not Available] unknown) (unknown) (no (unknown) (unknown) abdominal (units (unkn own) date) tenderness unknown) (unknown) (no (unknown) (unknown) abnormalities or (units (unknown) date) acute blood loss. unknown) Your clinical exam is equally reassuring. (unknown) (no (unknown) (unknown) abnormalities (units ( unknown) date) unknown) (unknown) (no (unknown) (unknown) admission to the (units (unknown) date) hospital. It may unknown) be that there was an early developing (unknown) (no (unknown) (unknown) after starting (units (unknown) date) the Augmentin unknown) prescribed in urgent care. The dysuria and urine (unknown) (no (unknown) (unknown) an appendicitis (units (unknown) date) and is being unknown) appropriately medically managed for such. Her (unknown) (no (unknown) (unknown) bupropion HCl 150 (units (unknown) date) mg tablet,12 hr unknown) 150 mg PO DAILY 08/09/21 08/09/21 (unknown) (no (unknown) (unknown) bupropion HCl (units ( unknown) date) [Wellbutrin SR] unknown) 150 mg tablet sustained-release 12 hr (unknown) (no (unknown) (unknown) coherent history. (units (unknown) date) Well-nourished unknown) well-developed (unknown) (no (unknown) (unknown) doses and is (units (u nknown) date) feeling unknown) significantly better this morning. Labs are reassuring. (unknown) (no (unknown) (unknown) entire 10 day (units (u nknown) date) course of unknown) amoxicillin with the presumption that she was developing (unknown) (no (unknown) (unknown) for home (units (unkno wn) date) discharge unknown) (unknown) (no (unknown) (unknown) free to return to (units (unknown) date) the emergency unknown) department for further evaluation. (unknown) (no (unknown) (unknown) had a ruptured (units (unknown) date) ovarian cyst. She unknown) is not currently on control. She states (unknown) (no (unknown) (unknown) hematuria (units (unkn own) date) Qualified Code(s): unknown) N30.00 - Acute cystitis without hematuria (unknown) (no (unknown) (unknown) infection and the (units (unknown) date) antibiotics chosen unknown) is entirely appropriate. Please make sure (unknown) (no (unknown) (unknown) infection but the (units (unknown) date) provider she saw unknown) was also concerned that she had some right (unknown) (no (unknown) (unknown) intraperitoneal (units (unknown) date) bleeding. At this unknown) point I recommended that she complete the (unknown) (no (unknown) (unknown) lower quadrant (units (unknown) date) tenderness and unknown) might be developing appendicitis. A year ago she (unknown) (no (unknown) (unknown) lower quadrant (units (unknown) date) tenderness for the unknown) past 48 hours has been on Augmentin now for 3 (unknown) (no (unknown) (unknown) morning is (units (unk nown) date) assigned that the unknown) Augmentin is helping. At this point I do not think (unknown) (no (unknown) (unknown) palpitations, (units ( unknown) date) headaches, unknown) vomiting or diarrhea. (unknown) (no (unknown) (unknown) rebound or (units (unk nown) date) guarding, good unknown) bowel tones, no flank pain (unknown) (no (unknown) (unknown) ruptured, it has (units (unknown) date) completely unknown) resolved and she is showing no signs of (unknown) (no (unknown) (unknown) sustained-release (units (unknown) date) (Wellbutrin SR) unknown) (unknown) (no (unknown) (unknown) symptoms have (units ( unknown) date) completely unknown) resolved. She never did have fevers or flank pain. (unknown) (no (unknown) (unknown) that included in (units (unknown) date) the HPI. unknown) (unknown) (no (unknown) (unknown) that yesterday (units (unknown) date) she had continued unknown) significant right lower quadrant tenderness (unknown) (no (unknown) (unknown) that you have (units ( unknown) date) acute surgical unknown) appendicitis that needs additional workup or (unknown) (no (unknown) (unknown) the discussion (units (unknown) date) around unknown) appendicitis. She describes no fevers, cough, chest pain, (unknown) (no (unknown) (unknown) urine has (units (unkn own) date) cleared. Findings unknown) reviewed, questions are answered and she is safe (unknown) (no (unknown) (unknown) you complete (units (u nknown) date) course. unknown) Social History date description facility 2022-04-21 00:00 Never smoked tobacco ([facility] Vital Signs date measurement value units 2022-04-21 00:00 BMI 19.5 kg/m2 2022-04-21 00:00 BP_diastolic 72 mmHg 2022-04-21 00:00 BP_systolic 116 mmHg 2022-04-21 00:00 heart_rate 76 /min 2022-04-21 00:00 height_metric 170.18 cm 2022-04-21 00:00 height_standard 67 in 2022-04-21 00:00 o2_saturation 98 % 2022-04-21 00:00 respiration_rate 12 /min 2022-04-21 00:00 temperature_metric 37 C 2022-04-21 00:00 temperature_standard 98.6 F 2022-04-21 00:00 weight_metric 56.69 kg 2022-04-21 00:00 weight_standard 124.98 lb
[2022-06-22] MEDS ORDERED: KETOROLAC 30 MG/ML VIAL IM STA (11:30)
[2022-06-22] MEDS ORDERED: CHERRY SYRUP 10 ML UDC PO ONE (11:30)
[2022-06-22] MEDS ORDERED: DEXAMETHASONE 10 MG/ML VIAL PO STA (11:30)
--- NOTE | 2022-06-22 11:33 | ED Physician Documentation ---
PD HPI BACK PAIN - Stated complaint Stated Complaint: BACK PX - Chief complaint Chief Complaint: Back Pain - History obtained from History obtained from: Patient - History of Present Illness Timing - onset: Last night Timing - duration: Hours Timing - details: Gradual onset, Still present Location: Lower, Left Quality: Pain, Spasm, Sharp, Similar to prior episodes Associated symptoms: No: Fever, Weakness, Numbness, Incontinent of urine, Unable to urinate, Hematuria, Incontinent of stool Improves with: Rest, Position Worsened by: Movement, Lifting, Twisting, Palpation Contributing factors: Other (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 The pain progressed overnight and she is even having a hard time getting in and out of bed today has to use both of her hands behind her to sit up. She has not otherwise been ill and she does not recall an injury at work earlier this week. She does do lifting at work every day. Review of Systems Constitutional: denies: Fever Ears: denies: Ear pain Nose: denies: Congestion Throat: denies: Sore throat Cardiac: denies: Chest pain / pressure Respiratory: denies: Dyspnea, Cough GI: denies: Abdominal Pain, Nausea, Vomiting, Constipation, Diarrhea : denies: Dysuria, Frequency Skin: denies: Rash Musculoskeletal: reports: Back pain. denies: Neck pain PD PAST MEDICAL HISTORY - Past Medical History Cardiovascular: None Respiratory: Asthma Neuro: None Endocrine/Autoimmune: None GI: None KILN BURNER: None : None HEENT: None Psych: None Musculoskeletal: None Derm: None - Past Surgical History Past Surgical History: No - Present Medications Home Medications: Ambulatory Orders Medication Instructions Recorded Confirmed Amitriptyline [Elavil] 10 mg PO QPM 10/09/21 buPROPion HCL [Bupropion Xl] 150 mg PO DAILY 10/09/21 Cyclobenzaprine [Flexeril] 10 mg PO TID PRN #20 tablet 06/22/22 - Allergies Allergies/Adverse Reactions: Allergies Allergy/AdvReac Type Severity Reaction Status Date / Time No Known Drug Allergies Allergy Verified 08/12/21 09:04 - Social History Does the pt smoke?: No Smoking Status: Never smoker Does the pt drink ETOH?: No Does the pt have substance abuse?: No - Immunizations Immunizations are current?: Yes - POLST Patient has POLST: No PD ED PE NORMAL - Vitals Vital signs reviewed: Yes (hypertensive ) - General General: Alert and oriented X 3, No acute distress, Well developed/nourished - HEENT HEENT: Atraumatic, PERRL, EOMI - Respiratory Respiratory: No respiratory distress - Back Back: No CVA TTP, No spinal TTP, Other (mild tenderness to the left lower lumbar area extending into the sciatic notch. ) - Derm Derm: Normal color, Warm and dry, No rash - Extremities Extremities: No deformity, No edema - Neuro Neuro: Alert and oriented X 3, optometry doctor 2-12 intact, No motor deficit, No sensory deficit, Normal speech Eye Opening: Spontaneous Motor: Obeys Commands Verbal: Oriented GCS Score: 15 - Psych Psych: Normal mood, Normal affect Results - Vitals Vitals: Vital Signs - 24 hr 06/22/22 09:39 Temperature 36.9 C Heart Rate 74 Respiratory 18 Rate Blood Pressure 110/93 H O2 Saturation 100 Oxygen O2 Source Room air PD Medical Decision Making - ED course Complexity details: considered differential, d/w patient ED course: 32-year-old female with a history of chronic intermittent back pain has devel oped an episode of back pain and she is administered dexamethasone and Toradol with improvement we will provide some pain medication a muscle relaxant for her and are expecting her to improve. I have asked the patient to consider physical therapy and she has a doctor to follow-up with up in [place]. Departure - Departure Disposition: 01 Home, Self Care Clinical Impression: Sciatica Qualifiers: Laterality: left Qualified Code(s): M54.32 - Sciatica, left side Condition: Stable Instructions: ED Sciatica Follow-Up: SKYLAR MARRERO MD [Primary Care Provider] - Prescriptions: Cyclobenzaprine [Flexeril] 10 mg PO TID PRN #20 tablet PRN Reason: Spasms HYDROcod/ACETAM 5/325 [[place] 5/325] 1 - 2 tablet PO Q6H PRN #14 tablet PRN Reason: Pain Comments: Lorraine today it looks like you have a pinched nerve in your back and we have given you some dexamethasone and Toradol which should help today. I have given you a prescription for some Flexeril which may help with not moving around as much at night when you sleep. This medication has been E scribed to the [facility] in [place]. The most effective way to treat this long-term is to do physical therapy for your back. Follow-up with your primary care doctor. Forms: Activity restrictions
[2022-06-22 11:55] VITALS: BP 112/76
== END 2022-06-22 11:57 | disposition home or self-care (01) ==
LOC: ED 09:26
DX: M54.42 Lumbago with sciatica, left side (principal)
CPT/HCPCS: 96372; 99283; A9270

== ENCOUNTER 2022-11-08 10:04 | Emergency (ER) | payer MEDICAID, OTHER ==
--- NOTE | 2022-11-08 10:31 | ED Physician Documentation ---
PD HPI NVD - Stated complaint Stated Complaint: DEHYDRATION - Chief complaint Chief Complaint: Abd Pain - History obtained from History obtained from: Patient - History of Present Illness Timing - onset: How many days ago (4) Timing - duration: Days (4) Timing - details: Abrupt onset, Still present Associated symptoms: Fever, Abdominal pain (diffuse cramping.), Loss of appetite, Other (The patient has had 4 days of persistent nausea vomiting and some diarrhea. She feels generally weak and lightheaded today and last night. Feverish feeling. No upper respiratory symptoms.). No: Hematemesis, Melena Contributing factors: Sick contact (Her younger niece had some nausea and vomiting symptoms last weekend.). No: Bad food Improved by: No: Vomiting Worsened by: Eating Similar symptoms before: Has not had sx before Recently seen: Clinic (Went to the walk-in this morning and referred to the ER for IV fluids.) Review of Systems Constitutional: reports: Chills, Myalgias, Fatigue Nose: denies: Rhinorrhea / runny nose, Congestion Throat: denies: Sore throat Respiratory: denies: Cough GI: reports: Abdominal Pain (intermittent cramping), Nausea, Vomiting, Diarrhea. denies: Hematemesis, Bloody / black stool : denies: Dysuria, Frequency Skin: denies: Rash Neurologic: reports: Generalized weakness, Headache. denies: Near syncope, Altered mental status PD PAST MEDICAL HISTORY - Past Medical History Cardiovascular: None Respiratory: Asthma Neuro: None Endocrine/Autoimmune: None GI: None [employer]: None : None HEENT: None Psych: None Musculoskeletal: None Derm: None - Past Surgical History Past Surgical History: No - Present Medications Home Medications: Ambulatory Orders Medication Instructions Recorded Confirmed Amitriptyline [Elavil] 10 mg PO QPM 10/09/21 buPROPion HCL [Bupropion Xl] 150 mg PO DAILY 10/09/21 Cyclobenzaprine [Flexeril] 10 mg PO TID PRN #20 tablet 06/22/22 Diphenoxylate/Atropine [Lomotil] 1 each PO QID PRN #12 tablet 11/08/22 Ondansetron Odt [Zofran] 4 mg TL Q6H PRN #15 tablet 11/08/22 - Allergies Allergies/Adverse Reactions: Allergies Allergy/AdvReac Type Severity Reaction Status Date / Time No Known Drug Allergies Allergy Verified 11/08/22 10:17 - Social History Does the pt smoke?: No Smoking Status: Never smoker Does the pt drink ETOH?: No Does the pt have substance abuse?: No - Immunizations Immunizations are current?: Yes - POLST Patient has POLST: No PD ED PE NORMAL - Vitals Vital signs reviewed: Yes - General General: Alert and oriented X 3, No acute distress - HEENT HEENT: Pharynx benign - Neck Neck: Supple, no meningeal sign, No adenopathy - Cardiac Cardiac: RRR, No murmur - Respiratory Respiratory: Clear bilaterally - Abdomen Abdomen: Normal bowel sounds, Soft, Non tender, Non distended, No organomegaly - Derm Derm: Normal color, Warm and dry - Neuro Neuro: Alert and oriented X 3, No motor deficit, Normal speech Results - Vitals Vitals: Vital Signs - 24 hr 11/08/22 11/08/22 10:14 12:44 Temperature 36.1 C L 36.4 C L Heart Rate 84 66 Respiratory 14 18 Rate Blood Pressure 108/66 101/63 O2 Saturation 99 100 Oxygen O2 Source Room air - Labs Labs: Laboratory Tests 11/08/22 11/08/22 11/08/22 10:26 10:26 11:45 WBC 6.3 RBC 4.77 Hgb 13.9 Hct 43.4 MCV 91.0 MCH 29.1 MCHC 32.0 RDW 12.8 Plt Count 259 MPV 8.6 Neut # (Auto) 4.9 Lymph # (Auto) 0.7 L [place] # (Auto) 0.6 Eos # (Auto) 0.1 Baso # (Auto) 0.0 Absolute Nucleated RBC 0.00 Nucleated RBC % 0.0 Sodium 137 Potassium 3.8 Chloride 99 L Carbon Dioxide 28 Anion Gap 10.0 BUN 10 Creatinine 0.8 Estimated GFR (MDRD) 82 L Glucose 84 Calcium 8.1 L Total Bilirubin 0.4 AST 20 ALT 20 Alkaline Phosphatase 55 Total Protein 7.3 Albumin 3.8 Globulin 3.5 Albumin/Globulin Ratio 1.1 Lipase 33 Urine Color YELLOW Urine Clarity CLEAR Urine pH 6.0 Ur Specific [place] <=1.005 Urine Protein NEGATIVE Urine Glucose (UA) NEGATIVE Urine Ketones NEGATIVE Urine Occult Blood NEGATIVE Urine Nitrite NEGATIVE Urine Bilirubin NEGATIVE Urine Urobilinogen 0.2 (NORMAL) Ur Leukocyte Esterase NEGATIVE Ur Microscopic Review NOT INDICATED Urine Culture Comments NOT INDICATED Urine HCG, Qual 11/08/22 11:45 WBC RBC Hgb Hct MCV MCH MCHC RDW Plt Count MPV Neut # (Auto) Lymph # (Auto) [place] # (Auto) Eos # (Auto) Baso # (Auto) Absolute Nucleated RBC Nucleated RBC % Sodium Potassium Chloride Carbon Dioxide Anion Gap BUN Creatinine Estimated GFR (MDRD) Glucose Calcium Total Bilirubin AST ALT Alkaline Phosphatase Total Protein Albumin Globulin Albumin/Globulin Ratio Lipase Urine Color Urine Clarity Urine pH Ur Specific [place] Urine Protein Urine Glucose (UA) Urine Ketones Urine Occult Blood Urine Nitrite Urine Bilirubin Urine Urobilinogen Ur Leukocyte Esterase Ur Microscopic Review Urine Culture Comments Urine HCG, Qual NEGATIVE PD Medical Decision Making - ED course Complexity details: re-evaluated patient (feeling much better with fluids, anteiemtic ZOfran, some Toradol and then lomotil. Taking fluids on recheck. Feeling okay with heading home. ), considered differential (No abdominal tenderness to palpation. Intermittent cramping. I am less suspicious for focal process and she is not tender in the appendix area. Seems likely viral gastroenteritis with dehydration.), d/w patient Departure - Departure Disposition: 01 Home, Self Care Clinical Impression: Nausea vomiting and diarrhea, Dehydration Condition: Stable Record reviewed to determine appropriate education?: Yes Instructions: ED Diet Vomiting Diarrhea Prescriptions: Diphenoxylate/Atropine [Lomotil] 1 each PO QID PRN #12 tablet PRN Reason: Diarrhea Ondansetron Odt [Zofran] 4 mg TL Q6H PRN #15 tablet PRN Reason: Nausea / Vomiting Comments: You may still have some nausea or diarrhea for the next day or 2. You may have intermittent cramping. You can use ondansetron for nausea and Lomotil if needed for diarrhea. Tylenol or ibuprofen if needed for cramps or pains. Small frequent fluids and bland food initially. Progress as tolerated. At this point you do not seem to have a localized area of tenderness to suggest a more significant or secondary process. Return to the ER if you have consistent pain in particular area, fevers persisting or ongoing symptoms more than a couple more days. I sent prescriptions to [facility] in [place]. Off work for couple of days. Forms: Activity restrictions Discharge Date/Time: 11/08/22 13:45
[2022-11-08 10:32] LABS: BASOPHILS % (AUTO) 0.2 %; EOSINOPHILS # (AUTO) 0.1 10^3/uL (0.0-0.7); EOSINOPHILS % (AUTO) 1.1 %; HCT - HEMATOCRIT 43.4 % (37.0-47.0); HGB - HEMOGLOBIN 13.9 g/dL (12.0-16.0); LYMPHOCYTES # (AUTO) 0.7 10^3/uL (1.5-3.5); MEAN CORPUSCULAR HEMOGLOBIN 29.1 pg (27.0-31.0); MEAN PLATELET VOLUME 8.6 fL (7.9-10.8); MONOCYTES # (AUTO) 0.6 10^3/uL (0.0-1.0); MONOCYTES % (AUTO) 9.7 %; NEUTROPHILS # (AUTO) 4.9 10^3/uL (1.5-6.6); NEUTROPHILS % (AUTO) 77.8 %; PLT - PLATELET COUNT 259 10^3/uL (130-450); RED BLOOD COUNT 4.77 10^6/uL (4.20-5.40); RED CELL DISTRIBUTION WIDTH 12.8 % (12.0-15.0); WHITE BLOOD COUNT 6.3 x10^3/uL (4.8-10.8)
--- OUTSIDE RECORDS SUMMARY | 2022-11-08 10:34 | EXTERNAL MEDICAL SUMMARY RPT | Continuity of Care Document ---
Author Name Unknown Address [address] [place] [address] Phone Organization [facility] Address [address] [place] [address] Phone Care Team Providers Care Human Resources File Clerk Name Role Phone Maximo Sagastume Unavailable Unavailable Medications date description facility 2022-08-19 00:[address] [facility] al Problems date description facility 2022-08-19 00:00 Urge incontinence of urine [facility] 2022-08-27 10:41 Other specified anxiety disorde [facility] 2022-08-27 10:41 Anxiety disorder, unspecified [facility] 2022-08-27 10:[address] [facility] Results/Labs test date author facility value unit interpretation Result panel 1 (unknown) (no date) (unknown) [facility] (no value) (units unknown) (unknown) Result panel 2 (unknown) (no date) (unknown) [facility] (no value) (units unknown) (unknown) Result panel 3 (unknown) (no date) (unknown) [facility] (no value) (units unknown) (unknown) Result panel 4 (unknown) (no date) (unknown) [facility] (no value) (units unknown) (unknown) Result panel 5 (unknown) (no date) (unknown) [facility] (no value) (units unknown) (unknown) Result panel 6 (unknown) (no date) (unknown) [facility] (no value) (units unknown) (unknown) Result panel 7 (unknown) (no date) (unknown) [facility] (no value) (units unknown) (unknown) Result panel 8 (unknown) (no date) (unknown) [facility] (no value) (units unknown) (unknown) Result panel 9 (unknown) (no date) (unknown) [facility] (no value) (units unknown) (unknown) Result panel 10 (unknown) (no date) (unknown) [facility] (no value) (units unknown) (unknown) Result panel 11 (unknown) (no date) (unknown) [facility] (no value) (units unknown) (unknown) Result panel 12 (unknown) (no date) (unknown) [facility] (no value) (units unknown) (unknown) Result panel 13 (unknown) (no date) (unknown) [facility] (no value) (units unknown) (unknown) Result panel 14 (unknown) (no date) (unknown) [facility] (no value) (units unknown) (unknown) Result panel 15 (unknown) (no date) (unknown) [facility] (no value) (units unknown) (unknown) Result panel 16 (unknown) (no date) (unknown) [facility] (no value) (units unknown) (unknown) Result panel 17 (unknown) (no date) (unknown) [facility] (no value) (units unknown) (unknown) Result panel 18 (unknown) (no date) (unknown) [facility] (no value) (units unknown) (unknown) Result panel 19 (unknown) (no date) (unknown) [facility] (no value) (units unknown) (unknown) Result panel 20 (unknown) (no date) (unknown) [facility] (no value) (units unknown) (unknown) Result panel 21 (unknown) (no date) (unknown) [facility] (no value) (units unknown) (unknown) Result panel 22 (unknown) (no date) (unknown) [facility] (no value) (units unknown) (unknown) Result panel 23 (unknown) (no date) (unknown) [facility] (no value) (units unknown) (unknown) Result panel 24 (unknown) (no date) (unknown) [facility] (no value) (units unknown) (unknown) Result panel 25 (unknown) (no date) (unknown) [facility] (no value) (units unknown) (unknown) Result panel 26 (unknown) (no date) (unknown) [facility] (no value) (units unknown) (unknown) Result panel 27 (unknown) (no date) (unknown) [facility] (no value) (units unknown) (unknown) Result panel 28 (unknown) (no date) (unknown) [facility] (no value) (units unknown) (unknown) Result panel 29 (unknown) (no date) (unknown) [facility] (no value) (units unknown) (unknown) Result panel 30 (unknown) (no date) (unknown) [facility] (no value) (units unknown) (unknown) Result panel 31 (unknown) (no date) (unknown) [facility] (no value) (units unknown) (unknown) Result panel 32 (unknown) (no date) (unknown) [facility] (no value) (units unknown) (unknown) Result panel 33 (unknown) (no date) (unknown) [facility] (no value) (units unknown) (unknown) Result panel 34 (unknown) (no date) (unknown) [facility] (no value) (units unknown) (unknown) Result panel 35 (unknown) (no date) (unknown) [facility] (no value) (units unknown) (unknown) Result panel 36 (unknown) (no date) (unknown) [facility] (no value) (units unknown) (unknown) Result panel 37 (unknown) (no date) (unknown) [facility] (no value) (units unknown) (unknown) Result panel 38 (unknown) (no date) (unknown) [facility] (no value) (units unknown) (unknown) Result panel 39 (unknown) (no date) (unknown) [facility] (no value) (units unknown) (unknown) Result panel 40 (unknown) (no date) (unknown) [facility] (no value) (units unknown) (unknown) Result panel 41 (unknown) (no date) (unknown) [facility] (no value) (units unknown) (unknown) Result panel 42 (unknown) (no date) (unknown) [facility] (no value) (units unknown) (unknown) Result panel 43 (unknown) (no date) (unknown) [facility] (no value) (units unknown) (unknown) Result panel 44 (unknown) (no date) (unknown) [facility] (no value) (units unknown) (unknown) Result panel 45 (unknown) (no date) (unknown) [facility] (no value) (units unknown) (unknown) Result panel 46 (unknown) (no date) (unknown) [facility] (no value) (units unknown) (unknown) Result panel 47 (unknown) (no date) (unknown) (unknown) (no value) (units unknown) (unknown) (unknown) (no date) (unknown) (unknown) (1) Depression with anxiety: (units unknown) (unknown) (unknown) (no date) (unknown) (unknown) (2) Stress incontinence in female: (units unknown) (unknown) (unknown) (no date) (unknown) (unknown) (3) Psychologi sea stool incontinence: (units unknown) (unknown) (unknown) (no date) (unknown) (unknown) (4) Rectocele: (unit s unknown) (unknown) (unknown) (no date) (unknown) (unknown) (5) Anxiety: (units unknown) (unknown) (unknown) (no date) (unknown) (unknown) 08/19/22 (units unknown) (unknown) (unknown) (no date) (unknown) (unknown) Age/Sex: 32 / F Date of Service: (units unknown) (unknown) (unknown) (no date) (unknown) (unknown) Allergies (units unknown) (unknown) (unknown) (no date) (unknown) (unknown) [place] [address] (units unknown) (unknown) (unknown) (no date) (unknown) (unknown) Anemia (-2016) (unit s unknown) (unknown) (unknown) (no date) (unknown) (unknown) Anxiety (-2014) (uni ts unknown) (unknown) (unknown) (no date) (unknown) (unknown) Appearance: (units unknown) (unknown) (unknown) (no date) (unknown) (unknown) Assessment + Plan (u nits unknown) (unknown) (unknown) (no date) (unknown) (unknown) Asthma () (unit s unknown) (unknown) (unknown) (no date) (unknown) (unknown) Attending Dr: Maximo Sagastume MD (units unknown) (unknown) (unknown) (no date) (unknown) (unknown) Auscultation: (units unknown) (unknown) (unknown) (no date) (unknown) (unknown) Cardio (units unknown) (unknown) (unknown) (no date) (unknown) (unknown) Chicken pox () (units unknown) (unknown) (unknown) (no date) (unknown) (unknown) Cognition: (units unknown) (unknown) (unknown) (no date) (unknown) (unknown) Const General: healthy appearing, pleasant (units unknown) (unknown) (unknown) (no date) (unknown) (unknown) : [birth year] 8 Acct:[id number] (units unknown) (unknown) (unknown) (no date) (unknown) (unknown) Depression (units unknown) (unknown) (unknown) (no date) (unknown) (unknown) Dept at . (units unknown) (unknown) (unknown) (no date) (unknown) (unknown) Documented By: Maximo Sagastume MD 08/19/22 1406 (units unknown) (unknown) (unknown) (no date) (unknown) (unknown) Draft (units unknown) (unknown) (unknown) (no date) (unknown) (unknown) Effort + Inspection: (units unknown) (unknown) (unknown) (no date) (unknown) (unknown) Exam Narrative (unit s unknown) (unknown) (unknown) (no date) (unknown) (unknown) Exam Narrative: (uni ts unknown) (unknown) (unknown) (no date) (unknown) (unknown) Exam (units unknown) (unknown) (unknown) (no date) (unknown) (unknown) Extrem (units unknown) (unknown) (unknown) (no date) (unknown) (unknown) Family History (Updated 06/28/21 @ 18:47 by Sophia Gama) (units unknown) (unknown) (unknown) (no date) (unknown) (unknown) Family Practic e Office Visit (units unknown) (unknown) (unknown) (no date) (unknown) (unknown) [facility] (units unknown) (unknown) (unknown) (no date) (unknown) (unknown) Follow-up as needed. (units unknown) (unknown) (unknown) (no date) (unknown) (unknown) GI bleeding () (units unknown) (unknown) (unknown) (no date) (unknown) (unknown) General: (units unknown) (unknown) (unknown) (no date) (unknown) (unknown) Grandfather Parkinson's disease (units unknown) (unknown) (unknown) (no date) (unknown) (unknown) Grandfather Prostate cancer (units unknown) (unknown) (unknown) (no date) (unknown) (unknown) Grandmother Breast cancer (units unknown) (unknown) (unknown) (no date) (unknown) (unknown) Grossly normal appearance and ROM, normal gait and no edema (units unknown) (unknown) (unknown) (no date) (unknown) (unknown) Heart Sounds: S1 normal and S2 normal (units unknown) (unknown) (unknown) (no date) (unknown) (unknown) Intake (units unknown) (unknown) (unknown) (no date) (unknown) (unknown) Loc: [facility] (units unknown) (unknown) (unknown) (no date) (unknown) (unknown) [id number] (units unknown) (unknown) (unknown) (no date) (unknown) (unknown) Medical Histor y (Updated 05/06/22 @ 00:00 by ) (units unknown) (unknown) (unknown) (no date) (unknown) (unknown) Neuro (units unknown) (unknown) (unknown) (no date) (unknown) (unknown) No Known Drug Allergies Allergy (Verified 04/21/22 09:12) (units unknown) (unknown) (unknown) (no date) (unknown) (unknown) Orientation: a lert, awake and oriented x3 (units unknown) (unknown) (unknown) (no date) (unknown) (unknown) Ovarian cyst () (units unknown) (unknown) (unknown) (no date) (unknown) (unknown) PFSH (units unknown) (unknown) (unknown) (no date) (unknown) (unknown) Patient: Lorraine Valdez MR#: (units unknown) (unknown) (unknown) (no date) (unknown) (unknown) Plan (units unknown) (unknown) (unknown) (no date) (unknown) (unknown) Psych (units unknown) (unknown) (unknown) (no date) (unknown) (unknown) Rate: regular rate ( units unknown) (unknown) (unknown) (no date) (unknown) (unknown) Reason For Visit (un its unknown) (unknown) (unknown) (no date) (unknown) (unknown) Resp (units unknown) (unknown) (unknown) (no date) (unknown) (unknown) Rhythm: regula r rhythm (units unknown) (unknown) (unknown) (no date) (unknown) (unknown) Signed By: (units unknown) (unknown) (unknown) (no date) (unknown) (unknown) Smoking Status : Never smoker (units unknown) (unknown) (unknown) (no date) (unknown) (unknown) Status: Acute (units unknown) (unknown) (unknown) (no date) (unknown) (unknown) Lorraine is a very pleasant 31-year-old female. She is overall being fairly (units unknown) (unknown) (unknown) (no date) (unknown) (unknown) This note may have been all or partially generated using voice recognition (units unknown) (unknown) (unknown) (no date) (unknown) (unknown) Tobacco + Subs tance Use (units unknown) (unknown) (unknown) (no date) (unknown) (unknown) Tobacco Status (unit s unknown) (unknown) (unknown) (no date) (unknown) (unknown) Visit Reasons: Mouth sores, pelvic floor PT (units unknown) (unknown) (unknown) (no date) (unknown) (unknown) affect and nor mal thought content (units unknown) (unknown) (unknown) (no date) (unknown) (unknown) [place]. She does have suspected rectocele based on her symptoms and does (units unknown) (unknown) (unknown) (no date) (unknown) (unknown) clear to auscultation bilaterally, no crackles, no rhonchi and no wheezes (units unknown) (unknown) (unknown) (no date) (unknown) (unknown) further evalua tion and possible treatment. Also will check CMP and TSH. (units unknown) (unknown) (unknown) (no date) (unknown) (unknown) grossly normal , mental status grossly normal, speech and movement normal, normal (units unknown) (unknown) (unknown) (no date) (unknown) (unknown) have intermitt ent stress incontinence. I have placed referral to Gynecology for (units unknown) (unknown) (unknown) (no date) (unknown) (unknown) have occurred. If there are any questions, please contact the Medical Records (units unknown) (unknown) (unknown) (no date) (unknown) (unknown) may occur. Occasional wrong-word or 'sound-alike' substitutions may have (units unknown) (unknown) (unknown) (no date) (unknown) (unknown) normal cognition (un its unknown) (unknown) (unknown) (no date) (unknown) (unknown) normal respira tory effort, able to speak in complete sentences and no (units unknown) (unknown) (unknown) (no date) (unknown) (unknown) occurred due t o the inherent limitations of voice recognition software. Please (units unknown) (unknown) (unknown) (no date) (unknown) (unknown) patient alert, awake, patient oriented x3 and no focal motor deficits (units unknown) (unknown) (unknown) (no date) (unknown) (unknown) read the note carefully and recognize, using context, where these substitutions (units unknown) (unknown) (unknown) (no date) (unknown) (unknown) respiratory distress (units unknown) (unknown) (unknown) (no date) (unknown) (unknown) software. Alth ough every effort is made to edit content, airfreight operations agent errors (units unknown) (unknown) (unknown) (no date) (unknown) (unknown) well controlle d with her depression and anxiety by psych nurse practitioner in [place] (units unknown) (unknown) Result panel 48 (unknown) (no date) (unknown) (unknown) (no value) (units unknown) (unknown) (unknown) (no date) (unknown) (unknown) (1) Depression with anxiety: (units unknown) (unknown) (unknown) (no date) (unknown) (unknown) (2) Stress incontinence in female: (units unknown) (unknown) (unknown) (no date) (unknown) (unknown) (3) Psychologi sea stool incontinence: (units unknown) (unknown) (unknown) (no date) (unknown) (unknown) (4) Rectocele: (unit s unknown) (unknown) (unknown) (no date) (unknown) (unknown) (5) Anxiety: (units unknown) (unknown) (unknown) (no date) (unknown) (unknown) 08/19/22 (units unknown) (unknown) (unknown) (no date) (unknown) (unknown) 14:12 (units unknown) (unknown) (unknown) (no date) (unknown) (unknown) 32 yo female presents today c/o sores both in and out of her mouth that lasted 2 (units unknown) (unknown) (unknown) (no date) (unknown) (unknown) Age/Sex: 32 / F Date of Service: (units unknown) (unknown) (unknown) (no date) (unknown) (unknown) Allergies (units unknown) (unknown) (unknown) (no date) (unknown) (unknown) [place] [address] (units unknown) (unknown) (unknown) (no date) (unknown) (unknown) Anemia (-2017) (unit s unknown) (unknown) (unknown) (no date) (unknown) (unknown) Anxiety (-2014) (uni ts unknown) (unknown) (unknown) (no date) (unknown) (unknown) Appearance: (units unknown) (unknown) (unknown) (no date) (unknown) (unknown) Assessment + Plan (u nits unknown) (unknown) (unknown) (no date) (unknown) (unknown) Asthma () (unit s unknown) (unknown) (unknown) (no date) (unknown) (unknown) Attending Dr: Maximo Sagastume MD (units unknown) (unknown) (unknown) (no date) (unknown) (unknown) Auscultation: (units unknown) (unknown) (unknown) (no date) (unknown) (unknown) BMI 19.9 (units unknown) (unknown) (unknown) (no date) (unknown) (unknown) BP 90/58 L (units unknown) (unknown) (unknown) (no date) (unknown) (unknown) Blood Pressure Location Lt brachial (units unknown) (unknown) (unknown) (no date) (unknown) (unknown) Cardio (units unknown) (unknown) (unknown) (no date) (unknown) (unknown) Chicken pox () (units unknown) (unknown) (unknown) (no date) (unknown) (unknown) Cognition: (units unknown) (unknown) (unknown) (no date) (unknown) (unknown) Const General: healthy appearing, pleasant (units unknown) (unknown) (unknown) (no date) (unknown) (unknown) : 8 Acct:[id number] (units unknown) (unknown) (unknown) (no date) (unknown) (unknown) Depression (units unknown) (unknown) (unknown) (no date) (unknown) (unknown) Dept at . (units unknown) (unknown) (unknown) (no date) (unknown) (unknown) Documented By: Maximo Sagastume MD 08/19/22 1406 (units unknown) (unknown) (unknown) (no date) (unknown) (unknown) Draft (units unknown) (unknown) (unknown) (no date) (unknown) (unknown) Effort + Inspection: (units unknown) (unknown) (unknown) (no date) (unknown) (unknown) Exam Narrative (unit s unknown) (unknown) (unknown) (no date) (unknown) (unknown) Exam Narrative: (uni ts unknown) (unknown) (unknown) (no date) (unknown) (unknown) Exam (units unknown) (unknown) (unknown) (no date) (unknown) (unknown) Extrem (units unknown) (unknown) (unknown) (no date) (unknown) (unknown) Family History (Updated 06/28/21 @ 18:47 by Sophia Gama) (units unknown) (unknown) (unknown) (no date) (unknown) (unknown) Family Practic e Office Visit (units unknown) (unknown) (unknown) (no date) (unknown) (unknown) [facility] (units unknown) (unknown) (unknown) (no date) (unknown) (unknown) Follow-up as needed. (units unknown) (unknown) (unknown) (no date) (unknown) (unknown) GI bleeding () (units unknown) (unknown) (unknown) (no date) (unknown) (unknown) General: (units unknown) (unknown) (unknown) (no date) (unknown) (unknown) Grandfather Parkinson's disease (units unknown) (unknown) (unknown) (no date) (unknown) (unknown) Grandfather Prostate cancer (units unknown) (unknown) (unknown) (no date) (unknown) (unknown) Grandmother Breast cancer (units unknown) (unknown) (unknown) (no date) (unknown) (unknown) Grossly normal appearance and ROM, normal gait and no edema (units unknown) (unknown) (unknown) (no date) (unknown) (unknown) Heart Sounds: S1 normal and S2 normal (units unknown) (unknown) (unknown) (no date) (unknown) (unknown) Height 5 ft 7 in (un its unknown) (unknown) (unknown) (no date) (unknown) (unknown) Intake Note: (units unknown) (unknown) (unknown) (no date) (unknown) (unknown) Intake perform ed by: DanteJackie Paola (units unknown) (unknown) (unknown) (no date) (unknown) (unknown) Intake (units unknown) (unknown) (unknown) (no date) (unknown) (unknown) Intake- Ever ryan Staff (units unknown) (unknown) (unknown) (no date) (unknown) (unknown) Loc: [facility] (units unknown) (unknown) (unknown) (no date) (unknown) (unknown) [id number] (units unknown) (unknown) (unknown) (no date) (unknown) (unknown) Medical Histor y (Updated 05/06/22 @ 00:00 by ) (units unknown) (unknown) (unknown) (no date) (unknown) (unknown) Neuro (units unknown) (unknown) (unknown) (no date) (unknown) (unknown) No Known Drug Allergies Allergy (Verified 08/19/22 14:12) (units unknown) (unknown) (unknown) (no date) (unknown) (unknown) [place]. e does have suspected rectocele based on her symptoms and does (units unknown) (unknown) (unknown) (no date) (unknown) (unknown) Orientation: a lert, awake and oriented x3 (units unknown) (unknown) (unknown) (no date) (unknown) (unknown) Ovarian cyst (-2020) (units unknown) (unknown) (unknown) (no date) (unknown) (unknown) Oxygen Deliver y Method room air (units unknown) (unknown) (unknown) (no date) (unknown) (unknown) PFSH (units unknown) (unknown) (unknown) (no date) (unknown) (unknown) Patient: Lorraine Valdez MR#: (units unknown) (unknown) (unknown) (no date) (unknown) (unknown) Plan (units unknown) (unknown) (unknown) (no date) (unknown) (unknown) Position Sitting (un its unknown) (unknown) (unknown) (no date) (unknown) (unknown) Psych (units unknown) (unknown) (unknown) (no date) (unknown) (unknown) Pulse 79 (units unknown) (unknown) (unknown) (no date) (unknown) (unknown) Pulse Oximetry (%) 99 (units unknown) (unknown) (unknown) (no date) (unknown) (unknown) Pulse Source Monitor (units unknown) (unknown) (unknown) (no date) (unknown) (unknown) Rate: regular rate ( units unknown) (unknown) (unknown) (no date) (unknown) (unknown) Reason For Visit (un its unknown) (unknown) (unknown) (no date) (unknown) (unknown) Resp (units unknown) (unknown) (unknown) (no date) (unknown) (unknown) Respiration 16 (unit s unknown) (unknown) (unknown) (no date) (unknown) (unknown) Rhythm: regula r rhythm (units unknown) (unknown) (unknown) (no date) (unknown) (unknown) Signed By: (units unknown) (unknown) (unknown) (no date) (unknown) (unknown) Smoking Status : Never smoker (units unknown) (unknown) (unknown) (no date) (unknown) (unknown) Status: Acute (units unknown) (unknown) (unknown) (no date) (unknown) (unknown) Lorraine is a very pleasant 31-year-old female. She is overall being fairly (units unknown) (unknown) (unknown) (no date) (unknown) (unknown) This note may have been all or partially generated using voice recognition (units unknown) (unknown) (unknown) (no date) (unknown) (unknown) Tobacco + Subs tance Use (units unknown) (unknown) (unknown) (no date) (unknown) (unknown) Tobacco Status (unit s unknown) (unknown) (unknown) (no date) (unknown) (unknown) Visit Reasons: Mouth sores, pelvic floor PT (units unknown) (unknown) (unknown) (no date) (unknown) (unknown) Vitals (units unknown) (unknown) (unknown) (no date) (unknown) (unknown) Weight 127 lb 2 oz ( units unknown) (unknown) (unknown) (no date) (unknown) (unknown) affect and nor mal thought content (units unknown) (unknown) (unknown) (no date) (unknown) (unknown) antidepressant s. Patient also requests a referral to PT for urinary (units unknown) (unknown) (unknown) (no date) (unknown) (unknown) clear to auscultation bilaterally, no crackles, no rhonchi and no wheezes (units unknown) (unknown) (unknown) (no date) (unknown) (unknown) further evalua tion and possible treatment. Also will check CMP and TSH. (units unknown) (unknown) (unknown) (no date) (unknown) (unknown) grossly normal , mental status grossly normal, speech and movement normal, normal (units unknown) (unknown) (unknown) (no date) (unknown) (unknown) have intermitt ent stress incontinence. I have placed referral to Gynecology for (units unknown) (unknown) (unknown) (no date) (unknown) (unknown) have occurred. If there are any questions, please contact the Medical Records (units unknown) (unknown) (unknown) (no date) (unknown) (unknown) incontinence. Patient also has an appt with Dr. Concepcion tomorrow morning for (units unknown) (unknown) (unknown) (no date) (unknown) (unknown) may occur. Occasional wrong-word or 'sound-alike' substitutions may have (units unknown) (unknown) (unknown) (no date) (unknown) (unknown) normal cognition (un its unknown) (unknown) (unknown) (no date) (unknown) (unknown) normal respira tory effort, able to speak in complete sentences and no (units unknown) (unknown) (unknown) (no date) (unknown) (unknown) occurred due t o the inherent limitations of voice recognition software. Please (units unknown) (unknown) (unknown) (no date) (unknown) (unknown) patient alert, awake, patient oriented x3 and no focal motor deficits (units unknown) (unknown) (unknown) (no date) (unknown) (unknown) read the note carefully and recognize, using context, where these substitutions (units unknown) (unknown) (unknown) (no date) (unknown) (unknown) respiratory distress (units unknown) (unknown) (unknown) (no date) (unknown) (unknown) software. Alth ough every effort is made to edit content, airfreight operations agent errors (units unknown) (unknown) (unknown) (no date) (unknown) (unknown) urinary incontinence. (units unknown) (unknown) (unknown) (no date) (unknown) (unknown) weeks. Patient states that the sores showed up after stopping her (units unknown) (unknown) (unknown) (no date) (unknown) (unknown) well controlle d with her depression and anxiety by psych nurse practitioner in (units unknown) (unknown) Result panel 49 (unknown) (no date) (unknown) (unknown) (no value) (units unknown) (unknown) (unknown) (no date) (unknown) (unknown) (1) Urge incontinence: (units unknown) (unknown) (unknown) (no date) (unknown) (unknown) (2) Depression with anxiety: (units unknown) (unknown) (unknown) (no date) (unknown) (unknown) (3) Stress incontinence in female: (units unknown) (unknown) (unknown) (no date) (unknown) (unknown) (4) Anxiety: (units unknown) (unknown) (unknown) (no date) (unknown) (unknown) 08/19/22 1428 (units unknown) (unknown) (unknown) (no date) (unknown) (unknown) 08/19/22 (units unknown) (unknown) (unknown) (no date) (unknown) (unknown) 14:12 (units unknown) (unknown) (unknown) (no date) (unknown) (unknown) 32 yo female presents today c/o sores both in and out of her mouth that lasted 2 (units unknown) (unknown) (unknown) (no date) (unknown) (unknown) Age/Sex: 32 / F Date of Service: (units unknown) (unknown) (unknown) (no date) (unknown) (unknown) Allergies (units unknown) (unknown) (unknown) (no date) (unknown) (unknown) [place] [address] (units unknown) (unknown) (unknown) (no date) (unknown) (unknown) Anemia (-2017) (unit s unknown) (unknown) (unknown) (no date) (unknown) (unknown) Anxiety (-2015) (uni ts unknown) (unknown) (unknown) (no date) (unknown) (unknown) Anxiety disord er, unspecified, N39.41 - Urge incontinence (units unknown) (unknown) (unknown) (no date) (unknown) (unknown) Appearance: (units unknown) (unknown) (unknown) (no date) (unknown) (unknown) Assessment + Plan (u nits unknown) (unknown) (unknown) (no date) (unknown) (unknown) Asthma (-1988) (unit s unknown) (unknown) (unknown) (no date) (unknown) (unknown) Attending Dr: Maximo Sagastume MD (units unknown) (unknown) (unknown) (no date) (unknown) (unknown) Auscultation: (units unknown) (unknown) (unknown) (no date) (unknown) (unknown) BMI 19.9 (units unknown) (unknown) (unknown) (no date) (unknown) (unknown) BP 90/58 L (units unknown) (unknown) (unknown) (no date) (unknown) (unknown) Blood Pressure Location Lt brachial (units unknown) (unknown) (unknown) (no date) (unknown) (unknown) Cardio (units unknown) (unknown) (unknown) (no date) (unknown) (unknown) Chicken pox () (units unknown) (unknown) (unknown) (no date) (unknown) (unknown) Chief Complaint (uni ts unknown) (unknown) (unknown) (no date) (unknown) (unknown) Chief Complain t: Urge incontinence and asthma (units unknown) (unknown) (unknown) (no date) (unknown) (unknown) Cognition: (units unknown) (unknown) (unknown) (no date) (unknown) (unknown) Comprehensive Metabolic Panel 1 Week F41.8 - Other specified anxiety disorders, (units unknown) (unknown) (unknown) (no date) (unknown) (unknown) Const General: healthy appearing, pleasant (units unknown) (unknown) (unknown) (no date) (unknown) (unknown) : 8 Acct:[id number] (units unknown) (unknown) (unknown) (no date) (unknown) (unknown) Depression (units unknown) (unknown) (unknown) (no date) (unknown) (unknown) Dept at . (units unknown) (unknown) (unknown) (no date) (unknown) (unknown) Details: (units unknown) (unknown) (unknown) (no date) (unknown) (unknown) Documented By: Maximo Sagastume MD 08/19/22 1406 (units unknown) (unknown) (unknown) (no date) (unknown) (unknown) Effort + Inspection: (units unknown) (unknown) (unknown) (no date) (unknown) (unknown) Exam Narrative (unit s unknown) (unknown) (unknown) (no date) (unknown) (unknown) Exam Narrative: (uni ts unknown) (unknown) (unknown) (no date) (unknown) (unknown) Exam (units unknown) (unknown) (unknown) (no date) (unknown) (unknown) Extrem (units unknown) (unknown) (unknown) (no date) (unknown) (unknown) F41.9 - Anxiet y disorder, unspecified, N39.41 - Urge incontinence (units unknown) (unknown) (unknown) (no date) (unknown) (unknown) Family History (Updated 06/28/21 @ 18:47 by Sophia Gama) (units unknown) (unknown) (unknown) (no date) (unknown) (unknown) Family Practic e Office Visit (units unknown) (unknown) (unknown) (no date) (unknown) (unknown) [facility] (units unknown) (unknown) (unknown) (no date) (unknown) (unknown) For her long-t erm intermittent urge incontinence and occasional stress (units unknown) (unknown) (unknown) (no date) (unknown) (unknown) GI bleeding (-2008) (units unknown) (unknown) (unknown) (no date) (unknown) (unknown) General: (units unknown) (unknown) (unknown) (no date) (unknown) (unknown) Grandfather Parkinson's disease (units unknown) (unknown) (unknown) (no date) (unknown) (unknown) Grandfather Prostate cancer (units unknown) (unknown) (unknown) (no date) (unknown) (unknown) Grandmother Breast cancer (units unknown) (unknown) (unknown) (no date) (unknown) (unknown) Grossly normal appearance and ROM, normal gait and no edema (units unknown) (unknown) (unknown) (no date) (unknown) (unknown) HPI (units unknown) (unknown) (unknown) (no date) (unknown) (unknown) Heart Sounds: S1 normal and S2 normal (units unknown) (unknown) (unknown) (no date) (unknown) (unknown) Height 5 ft 7 in (un its unknown) (unknown) (unknown) (no date) (unknown) (unknown) Intake Note: (units unknown) (unknown) (unknown) (no date) (unknown) (unknown) Intake perform ed by: Jackie Howell (units unknown) (unknown) (unknown) (no date) (unknown) (unknown) Intake (units unknown) (unknown) (unknown) (no date) (unknown) (unknown) Intake- Ever ryan Staff (units unknown) (unknown) (unknown) (no date) (unknown) (unknown) Loc: [facility] (units unknown) (unknown) (unknown) (no date) (unknown) (unknown) [id number] (units unknown) (unknown) (unknown) (no date) (unknown) (unknown) Medical Histor y (Updated 08/19/22 @ 14:18 by Maximo Sagastume MD) (units unknown) (unknown) (unknown) (no date) (unknown) (unknown) Medications (units unknown) (unknown) (unknown) (no date) (unknown) (unknown) Medications: (units unknown) (unknown) (unknown) (no date) (unknown) (unknown) Neuro (units unknown) (unknown) (unknown) (no date) (unknown) (unknown) No Known Drug Allergies Allergy (Verified 08/19/22 14:12) (units unknown) (unknown) (unknown) (no date) (unknown) (unknown) Orders (units unknown) (unknown) (unknown) (no date) (unknown) (unknown) Orders: (units unknown) (unknown) (unknown) (no date) (unknown) (unknown) Orientation: a lert, awake and oriented x3 (units unknown) (unknown) (unknown) (no date) (unknown) (unknown) Ovarian cyst (-2020) (units unknown) (unknown) (unknown) (no date) (unknown) (unknown) Oxygen Deliver y Method room air (units unknown) (unknown) (unknown) (no date) (unknown) (unknown) PFSH (units unknown) (unknown) (unknown) (no date) (unknown) (unknown) Patient: Lorraine Valdez MR#: (units unknown) (unknown) (unknown) (no date) (unknown) (unknown) Plan (units unknown) (unknown) (unknown) (no date) (unknown) (unknown) Position Sitting (un its unknown) (unknown) (unknown) (no date) (unknown) (unknown) Psych (units unknown) (unknown) (unknown) (no date) (unknown) (unknown) Pulse 79 (units unknown) (unknown) (unknown) (no date) (unknown) (unknown) Pulse Oximetry (%) 99 (units unknown) (unknown) (unknown) (no date) (unknown) (unknown) Pulse Source Monitor (units unknown) (unknown) (unknown) (no date) (unknown) (unknown) Rate: regular rate ( units unknown) (unknown) (unknown) (no date) (unknown) (unknown) Reason For Visit (un its unknown) (unknown) (unknown) (no date) (unknown) (unknown) Referral Physi sea Therapy N39.41 - Urge incontinence, R32 - Unspecified urinary (units unknown) (unknown) (unknown) (no date) (unknown) (unknown) Referrals (units unknown) (unknown) (unknown) (no date) (unknown) (unknown) Refilled (units unknown) (unknown) (unknown) (no date) (unknown) (unknown) Resp (units unknown) (unknown) (unknown) (no date) (unknown) (unknown) Respiration 16 (unit s unknown) (unknown) (unknown) (no date) (unknown) (unknown) Rhythm: regula r rhythm (units unknown) (unknown) (unknown) (no date) (unknown) (unknown) She also did h ave recent URI and uses albuterol on occasion. (units unknown) (unknown) (unknown) (no date) (unknown) (unknown) Signed By: <Electronically signed by Maximo Sagastume MD> (units unknown) (unknown) (unknown) (no date) (unknown) (unknown) Signed (units unknown) (unknown) (unknown) (no date) (unknown) (unknown) Smoking Status : Never smoker (units unknown) (unknown) (unknown) (no date) (unknown) (unknown) Status: Acute (units unknown) (unknown) (unknown) (no date) (unknown) (unknown) Lorraine is a 32-year-old female with history of anxiety and chronic low back (units unknown) (unknown) (unknown) (no date) (unknown) (unknown) TSH w/ Reflex to FT4 1 Week F41.8 - Other specified anxiety disorders, F41.9 (units unknown) (unknown) (unknown) (no date) (unknown) (unknown) This note may have been all or partially generated using voice recognition (units unknown) (unknown) (unknown) (no date) (unknown) (unknown) Tobacco + Subs tance Use (units unknown) (unknown) (unknown) (no date) (unknown) (unknown) Tobacco Status (unit s unknown) (unknown) (unknown) (no date) (unknown) (unknown) Urinalysis and Microscopic 1 Week F41.8 - Other specified anxiety disorders, (units unknown) (unknown) (unknown) (no date) (unknown) (unknown) Visit Reasons: Mouth sores, pelvic floor PT (units unknown) (unknown) (unknown) (no date) (unknown) (unknown) Vitals (units unknown) (unknown) (unknown) (no date) (unknown) (unknown) Weight 127 lb 2 oz ( units unknown) (unknown) (unknown) (no date) (unknown) (unknown) Wellbutrin fro m a mood standpoint. (units unknown) (unknown) (unknown) (no date) (unknown) (unknown) affect and nor mal thought content (units unknown) (unknown) (unknown) (no date) (unknown) (unknown) albuterol for wheezing from intermittent URI. She is doing okay off of (units unknown) (unknown) (unknown) (no date) (unknown) (unknown) albuterol sulf ate 90 mcg/actuation 2 puffs inhalation Q6H PRN 6.7 grams 3RF (units unknown) (unknown) (unknown) (no date) (unknown) (unknown) albuterol sulf ate 90 mcg/actuation aerosol inhaler 2 puff inhalation Q6H PRN (units unknown) (unknown) (unknown) (no date) (unknown) (unknown) and urge incontinence that has been present for about 8 years. Has not improve (units unknown) (unknown) (unknown) (no date) (unknown) (unknown) antidepressant s. Patient also requests a referral to PT for urinary (units unknown) (unknown) (unknown) (no date) (unknown) (unknown) clear to auscultation bilaterally, no crackles, no rhonchi and no wheezes (units unknown) (unknown) (unknown) (no date) (unknown) (unknown) does have evaluation with Dr. Concepcion, gynecology, tomorrow. She is due for a (units unknown) (unknown) (unknown) (no date) (unknown) (unknown) few screening labs, and I will check a UA as well. I also did refill her (units unknown) (unknown) (unknown) (no date) (unknown) (unknown) grossly normal , mental status grossly normal, speech and movement normal, normal (units unknown) (unknown) (unknown) (no date) (unknown) (unknown) have occurred. If there are any questions, please contact the Medical Records (units unknown) (unknown) (unknown) (no date) (unknown) (unknown) incontinence (units unknown) (unknown) (unknown) (no date) (unknown) (unknown) incontinence, will refer physical therapy for pelvic floor evaluation. She also (units unknown) (unknown) (unknown) (no date) (unknown) (unknown) incontinence. Patient also has an appt with Dr. Concepcion tomorrow morning for (units unknown) (unknown) (unknown) (no date) (unknown) (unknown) may occur. Occasional wrong-word or 'sound-alike' substitutions may have (units unknown) (unknown) (unknown) (no date) (unknown) (unknown) normal cognition (un its unknown) (unknown) (unknown) (no date) (unknown) (unknown) normal respira tory effort, able to speak in complete sentences and no (units unknown) (unknown) (unknown) (no date) (unknown) (unknown) occurred due t o the inherent limitations of voice recognition software. Please (units unknown) (unknown) (unknown) (no date) (unknown) (unknown) pain and insom meka who is here to follow-up. She does have some urinary urgency (units unknown) (unknown) (unknown) (no date) (unknown) (unknown) patient alert, awake, patient oriented x3 and no focal motor deficits (units unknown) (unknown) (unknown) (no date) (unknown) (unknown) read the note carefully and recognize, using context, where these substitutions (units unknown) (unknown) (unknown) (no date) (unknown) (unknown) respiratory distress (units unknown) (unknown) (unknown) (no date) (unknown) (unknown) shortness of b reath or wheezing #6.7 grams 08/19/22 [Rx Confirmed 08/19/22] (units unknown) (unknown) (unknown) (no date) (unknown) (unknown) shortness of b reath or wheezing (units unknown) (unknown) (unknown) (no date) (unknown) (unknown) significantly with medication. She is hoping for physical therapy referral. (units unknown) (unknown) (unknown) (no date) (unknown) (unknown) software. Alth ough every effort is made to edit content, airfreight operations agent errors (units unknown) (unknown) (unknown) (no date) (unknown) (unknown) urinary incontinence. (units unknown) (unknown) (unknown) (no date) (unknown) (unknown) weeks. Patient states that the sores showed up after stopping her (units unknown) (unknown) Result panel 50 (unknown) (no date) (unknown) (unknown) 0.2 e.u./dl (unknown ) (unknown) (no date) (unknown) (unknown) 1.010 (units unknown) (unknown) (unknown) (no date) (unknown) (unknown) 6.0 (units unknown) (unknown) (unknown) (no date) (unknown) (unknown) CLEAR (units unknown) (unknown) (unknown) (no date) (unknown) (unknown) NEGATIVE (units unknown) (unknown) (unknown) (no date) (unknown) (unknown) NEGATIVE g/dl (unknow n) (unknown) (no date) (unknown) (unknown) TRACE-INTACT (units unknown) (unknown) (unknown) (no date) (unknown) (unknown) YELLOW (units unknown) (unknown) (unknown) (no date) (unknown) (unknown) YELLOW (units unknown) (unknown) Result panel 51 (unknown) (no date) (unknown) (unknown) 0.2 e.u./dl (unknown ) (unknown) (no date) (unknown) (unknown) 1.010 (units unknown) (unknown) (unknown) (no date) (unknown) (unknown) 6.0 (units unknown) (unknown) (unknown) (no date) (unknown) (unknown) CLEAR (units unknown) (unknown) (unknown) (no date) (unknown) (unknown) Cult Not Indicated ( units unknown) (unknown) (unknown) (no date) (unknown) (unknown) Microscopic Normal ( units unknown) (unknown) (unknown) (no date) (unknown) (unknown) NEGATIVE (units unknown) (unknown) (unknown) (no date) (unknown) (unknown) NEGATIVE g/dl (unknow n) (unknown) (no date) (unknown) (unknown) None Seen (units unknown) (unknown) (unknown) (no date) (unknown) (unknown) None Seen (units unknown) (unknown) (unknown) (no date) (unknown) (unknown) TRACE-INTACT (units unknown) (unknown) (unknown) (no date) (unknown) (unknown) YELLOW (units unknown) (unknown) (unknown) (no date) (unknown) (unknown) YELLOW (units unknown) (unknown) Result panel 52 (unknown) (no date) (unknown) (unknown) > 60 ml/min (unknown ) (unknown) (no date) (unknown) (unknown) > 60 ml/min (unknown ) (unknown) (no date) (unknown) (unknown) 0.4 mg/dl (unknown ) (unknown) (no date) (unknown) (unknown) 0.88 mg/dl (unknown ) (unknown) (no date) (unknown) (unknown) 1.3 (units unknown) (unknown) (unknown) (no date) (unknown) (unknown) 102 mmol/l (unknown ) (unknown) (no date) (unknown) (unknown) 139 mmol/l (unknown ) (unknown) (no date) (unknown) (unknown) 17 mg/dl (unknown ) (unknown) (no date) (unknown) (unknown) 19.3 (units unknown) (unknown) (unknown) (no date) (unknown) (unknown) 21 iu/l (unknown ) (unknown) (no date) (unknown) (unknown) 21 iu/l (unknown ) (unknown) (no date) (unknown) (unknown) 3.1 g/dl (unknown ) (unknown) (no date) (unknown) (unknown) 31 mmol/l (unknown ) (unknown) (no date) (unknown) (unknown) 4.1 g/dl (unknown ) (unknown) (no date) (unknown) (unknown) 4.4 mmol/l (unknown ) (unknown) (no date) (unknown) (unknown) 63 mg/dl (unknown ) (unknown) (no date) (unknown) (unknown) 63 mg/dl (unknown ) (unknown) (no date) (unknown) (unknown) 69 u/l (unknown ) (unknown) (no date) (unknown) (unknown) 7.2 g/dl (unknown ) (unknown) (no date) (unknown) (unknown) 8.5 mg/dl (unknown ) Result panel 53 (unknown) (no date) (unknown) (unknown) 1.47 uiu/ml (unknown ) Result panel 54 (unknown) (no date) (unknown) (unknown) (no value) (units unknown) (unknown) (unknown) (no date) (unknown) (unknown) 08/29/22 (units unknown) (unknown) (unknown) (no date) (unknown) (unknown) Age/Sex: 32 / F Date of Service: (units unknown) (unknown) (unknown) (no date) (unknown) (unknown) Allergies (units unknown) (unknown) (unknown) (no date) (unknown) (unknown) [place] [address] (units unknown) (unknown) (unknown) (no date) (unknown) (unknown) Anemia (-2016) (unit s unknown) (unknown) (unknown) (no date) (unknown) (unknown) Anxiety (-2014) (uni ts unknown) (unknown) (unknown) (no date) (unknown) (unknown) Asthma (-1988) (unit s unknown) (unknown) (unknown) (no date) (unknown) (unknown) Attending Dr: Glynn Concepcion MD (units unknown) (unknown) (unknown) (no date) (unknown) (unknown) Chicken pox (-1996) (units unknown) (unknown) (unknown) (no date) (unknown) (unknown) : 8 Acct:[id number] (units unknown) (unknown) (unknown) (no date) (unknown) (unknown) Date of Last Menstrual Period: 08/24/22 (units unknown) (unknown) (unknown) (no date) (unknown) (unknown) Depression (units unknown) (unknown) (unknown) (no date) (unknown) (unknown) Dept at . (units unknown) (unknown) (unknown) (no date) (unknown) (unknown) Documented By: Glynn Concepcion MD 08/29/22 0844 (units unknown) (unknown) (unknown) (no date) (unknown) (unknown) Draft (units unknown) (unknown) (unknown) (no date) (unknown) (unknown) Family History (Updated 06/28/21 @ 18:47 by Sophia Gama) (units unknown) (unknown) (unknown) (no date) (unknown) (unknown) [facility] (units unknown) (unknown) (unknown) (no date) (unknown) (unknown) GI bleeding () (units unknown) (unknown) (unknown) (no date) (unknown) (unknown) Grandfather Parkinson's disease (units unknown) (unknown) (unknown) (no date) (unknown) (unknown) Grandfather Prostate cancer (units unknown) (unknown) (unknown) (no date) (unknown) (unknown) Grandmother Breast cancer (units unknown) (unknown) (unknown) (no date) (unknown) (unknown) Gynecology Visit (un its unknown) (unknown) (unknown) (no date) (unknown) (unknown) Intake Note: (units unknown) (unknown) (unknown) (no date) (unknown) (unknown) Intake perform ed by: Herson Delgado (units unknown) (unknown) (unknown) (no date) (unknown) (unknown) Intake (units unknown) (unknown) (unknown) (no date) (unknown) (unknown) Intake- Ever al Staff (units unknown) (unknown) (unknown) (no date) (unknown) (unknown) Last Menstural Cycle + Details (units unknown) (unknown) (unknown) (no date) (unknown) (unknown) Loc: [facility] (units unknown) (unknown) (unknown) (no date) (unknown) (unknown) [id number] (units unknown) (unknown) (unknown) (no date) (unknown) (unknown) Medical Histor y (Updated 08/19/22 @ 14:18 by Maximo Sagastume MD) (units unknown) (unknown) (unknown) (no date) (unknown) (unknown) Medications (units unknown) (unknown) (unknown) (no date) (unknown) (unknown) 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 a rectocele (units unknown) (unknown) (unknown) (no date) (unknown) (unknown) No Known Drug Allergies Allergy (Verified 08/29/22 08:48) (units unknown) (unknown) (unknown) (no date) (unknown) (unknown) Ovarian cyst (-2020) (units unknown) (unknown) (unknown) (no date) (unknown) (unknown) PFSH (units unknown) (unknown) (unknown) (no date) (unknown) (unknown) Patient: Lorraine Valdez MR#: (units unknown) (unknown) (unknown) (no date) (unknown) (unknown) Pt states that the incontinence may be more of a mental thing and anxiety (units unknown) (unknown) (unknown) (no date) (unknown) (unknown) Reason For Visit (un its unknown) (unknown) (unknown) (no date) (unknown) (unknown) Signed By: (units unknown) (unknown) (unknown) (no date) (unknown) (unknown) Smoking Status : Never smoker (units unknown) (unknown) (unknown) (no date) (unknown) (unknown) This note may have been all or partially generated using voice recognition (units unknown) (unknown) (unknown) (no date) (unknown) (unknown) Tobacco + Subs tance Use (units unknown) (unknown) (unknown) (no date) (unknown) (unknown) Tobacco Status (unit s unknown) (unknown) (unknown) (no date) (unknown) (unknown) 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 If there are any questions, please contact the Medical Records (units unknown) (unknown) (unknown) (no date) (unknown) (unknown) may occur. Occasional wrong-word or 'sound-alike' substitutions may have (units unknown) (unknown) (unknown) (no date) (unknown) (unknown) occurred due t o the inherent limitations of voice recognition software. Please (units unknown) (unknown) (unknown) (no date) (unknown) (unknown) read the note carefully and recognize, using context, where these substitutions (units unknown) (unknown) (unknown) (no date) (unknown) (unknown) rectocele or protrusion was going on for approx 1yr but seems to have resolved (units unknown) (unknown) (unknown) (no date) (unknown) (unknown) shortness of b reath or wheezing #6.7 grams 08/19/22 [Rx Confirmed 08/29/22] (units unknown) (unknown) (unknown) (no date) (unknown) (unknown) since April (unit s unknown) (unknown) (unknown) (no date) (unknown) (unknown) software. Alth ough every effort is made to edit content, airfreight operations agent errors (units unknown) (unknown) Result panel 55 (unknown) (no date) (unknown) (unknown) (no value) (units unknown) (unknown) (unknown) (no date) (unknown) (unknown) 08/29/22 (units unknown) (unknown) (unknown) (no date) (unknown) (unknown) 08:54 (units unknown) (unknown) (unknown) (no date) (unknown) (unknown) Age/Sex: 32 / F Date of Service: (units unknown) (unknown) (unknown) (no date) (unknown) (unknown) Allergies (units unknown) (unknown) (unknown) (no date) (unknown) (unknown) [place] [address] (units unknown) (unknown) (unknown) (no date) (unknown) (unknown) Anemia (-2016) (unit s unknown) (unknown) (unknown) (no date) (unknown) (unknown) Anxiety (-2014) (uni ts unknown) (unknown) (unknown) (no date) (unknown) (unknown) Asthma (-1988) (unit s unknown) (unknown) (unknown) (no date) (unknown) (unknown) Attending Dr: Glynn Concepcion MD (units unknown) (unknown) (unknown) (no date) (unknown) (unknown) BMI 20.0 (units unknown) (unknown) (unknown) (no date) (unknown) (unknown) BP 96/52 L (units unknown) (unknown) (unknown) (no date) (unknown) (unknown) Blood Pressure Location Rt brachial (units unknown) (unknown) (unknown) (no date) (unknown) (unknown) Chicken pox () (units unknown) (unknown) (unknown) (no date) (unknown) (unknown) : 8 Acct:[id number] (units unknown) (unknown) (unknown) (no date) (unknown) (unknown) Date of Last Menstrual Period: 08/24/22 (units unknown) (unknown) (unknown) (no date) (unknown) (unknown) Depression (units unknown) (unknown) (unknown) (no date) (unknown) (unknown) Dept at . (units unknown) (unknown) (unknown) (no date) (unknown) (unknown) Documented By: Glynn Concepcion MD 08/29/22 0844 (units unknown) (unknown) (unknown) (no date) (unknown) (unknown) Draft (units unknown) (unknown) (unknown) (no date) (unknown) (unknown) Family History (Updated 06/28/21 @ 18:47 by Sophia Gama) (units unknown) (unknown) (unknown) (no date) (unknown) (unknown) [facility] (units unknown) (unknown) (unknown) (no date) (unknown) (unknown) GI bleeding () (units unknown) (unknown) (unknown) (no date) (unknown) (unknown) Grandfather Parkinson's disease (units unknown) (unknown) (unknown) (no date) (unknown) (unknown) Grandfather Prostate cancer (units unknown) (unknown) (unknown) (no date) (unknown) (unknown) Grandmother Breast cancer (units unknown) (unknown) (unknown) (no date) (unknown) (unknown) Gynecology Visit (un its unknown) (unknown) (unknown) (no date) (unknown) (unknown) Height 5 ft 7 in (un its unknown) (unknown) (unknown) (no date) (unknown) (unknown) Intake Note: (units unknown) (unknown) (unknown) (no date) (unknown) (unknown) Intake perform ed by: Delgado,Bobbijo (units unknown) (unknown) (unknown) (no date) (unknown) (unknown) Intake (units unknown) (unknown) (unknown) (no date) (unknown) (unknown) Intake- [place] al Staff (units unknown) (unknown) (unknown) (no date) (unknown) (unknown) Last Menstural Cycle + Details (units unknown) (unknown) (unknown) (no date) (unknown) (unknown) Loc: [facility] (units unknown) (unknown) (unknown) (no date) (unknown) (unknown) [id number] (units unknown) (unknown) (unknown) (no date) (unknown) (unknown) Medical Histor y (Updated 08/19/22 @ 14:18 by Maximo Sagastume MD) (units unknown) (unknown) (unknown) (no date) (unknown) (unknown) Medications (units unknown) (unknown) (unknown) (no date) (unknown) (unknown) 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 a rectocele (units unknown) (unknown) (unknown) (no date) (unknown) (unknown) No Known Drug Allergies Allergy (Verified 08/29/22 08:48) (units unknown) (unknown) (unknown) (no date) (unknown) (unknown) Ovarian cyst (-2020) (units unknown) (unknown) (unknown) (no date) (unknown) (unknown) PFSH (units unknown) (unknown) (unknown) (no date) (unknown) (unknown) Patient: Lorraine Valdez MR#: (units unknown) (unknown) (unknown) (no date) (unknown) (unknown) Position Sitting (un its unknown) (unknown) (unknown) (no date) (unknown) (unknown) Pt states that the incontinence may be more of a stress/mental/anxie ty (units unknown) (unknown) (unknown) (no date) (unknown) (unknown) Reason For Visit (un its unknown) (unknown) (unknown) (no date) (unknown) (unknown) Signed By: (units unknown) (unknown) (unknown) (no date) (unknown) (unknown) Smoking Status : Never smoker (units unknown) (unknown) (unknown) (no date) (unknown) (unknown) This note may have been all or partially generated using voice recognition (units unknown) (unknown) (unknown) (no date) (unknown) (unknown) Tobacco + Subs tance Use (units unknown) (unknown) (unknown) (no date) (unknown) (unknown) Tobacco Status (unit s unknown) (unknown) (unknown) (no date) (unknown) (unknown) 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 If there are any questions, please contact the Medical Records (units unknown) (unknown) (unknown) (no date) (unknown) (unknown) may occur. Occasional wrong-word or 'sound-alike' substitutions may have (units unknown) (unknown) (unknown) (no date) (unknown) (unknown) occurred due t o the inherent limitations of voice recognition software. Please (units unknown) (unknown) (unknown) (no date) (unknown) (unknown) read the note carefully and recognize, using context, where these substitutions (units unknown) (unknown) (unknown) (no date) (unknown) (unknown) rectocele or protrusion was going on for approx 1yr but seems to have resolved (units unknown) (unknown) (unknown) (no date) (unknown) (unknown) shortness of b reath or wheezing #6.7 grams 08/19/22 [Rx Confirmed 08/29/22] (units unknown) (unknown) (unknown) (no date) (unknown) (unknown) since April (unit s unknown) (unknown) (unknown) (no date) (unknown) (unknown) software. Alth ough every effort is made to edit content, airfreight operations agent errors (units unknown) (unknown) Result panel 56 (unknown) (no date) (unknown) (unknown) (no value) (units unknown) (unknown) (unknown) (no date) (unknown) (unknown) 08/29/22 (units unknown) (unknown) (unknown) (no date) (unknown) (unknown) 08:54 (units unknown) (unknown) (unknown) (no date) (unknown) (unknown) 1st trimester and an elective termination. She is not had vaginal or (units unknown) (unknown) (unknown) (no date) (unknown) (unknown) Affect: normal affect (units unknown) (unknown) (unknown) (no date) (unknown) (unknown) Age/Sex: 32 / F Date of Service: (units unknown) (unknown) (unknown) (no date) (unknown) (unknown) Allergies (units unknown) (unknown) (unknown) (no date) (unknown) (unknown) [place] [address] (units unknown) (unknown) (unknown) (no date) (unknown) (unknown) Anemia (-2016) (unit s unknown) (unknown) (unknown) (no date) (unknown) (unknown) Anxiety (-2014) (uni ts unknown) (unknown) (unknown) (no date) (unknown) (unknown) Appearance: gr ossly normal (units unknown) (unknown) (unknown) (no date) (unknown) (unknown) Asthma (-1988) (unit s unknown) (unknown) (unknown) (no date) (unknown) (unknown) Attending Dr: Glynn Concepcion MD (units unknown) (unknown) (unknown) (no date) (unknown) (unknown) Attitude: cooperative (units unknown) (unknown) (unknown) (no date) (unknown) (unknown) BMI 20.0 (units unknown) (unknown) (unknown) (no date) (unknown) (unknown) BP 96/52 L (units unknown) (unknown) (unknown) (no date) (unknown) (unknown) Blood Pressure Location Rt brachial (units unknown) (unknown) (unknown) (no date) (unknown) (unknown) Chicken pox (-1996) (units unknown) (unknown) (unknown) (no date) (unknown) (unknown) Chief Complaint (uni ts unknown) (unknown) (unknown) (no date) (unknown) (unknown) Chief Complain t: Intermittent vaginal bulging, urge incontinence (units unknown) (unknown) (unknown) (no date) (unknown) (unknown) Conjunctivae: conjunctivae normal (units unknown) (unknown) (unknown) (no date) (unknown) (unknown) Const (units unknown) (unknown) (unknown) (no date) (unknown) (unknown) : 8 Acct:[id number] (units unknown) (unknown) (unknown) (no date) (unknown) (unknown) Date of Last Menstrual Period: 08/24/22 (units unknown) (unknown) (unknown) (no date) (unknown) (unknown) Depression (units unknown) (unknown) (unknown) (no date) (unknown) (unknown) Dept at . (units unknown) (unknown) (unknown) (no date) (unknown) (unknown) Details: (units unknown) (unknown) (unknown) (no date) (unknown) (unknown) Documented By: Glynn Concepcion MD 08/29/22 0844 (units unknown) (unknown) (unknown) (no date) (unknown) (unknown) Draft (units unknown) (unknown) (unknown) (no date) (unknown) (unknown) EOM: EOM intac t bilaterally (units unknown) (unknown) (unknown) (no date) (unknown) (unknown) Ears: hearing grossly normal bilaterally (units unknown) (unknown) (unknown) (no date) (unknown) (unknown) Effort + Inspection: normal respiratory effort and able to speak in complete (units unknown) (unknown) (unknown) (no date) (unknown) (unknown) Exam (units unknown) (unknown) (unknown) (no date) (unknown) (unknown) Eyes (units unknown) (unknown) (unknown) (no date) (unknown) (unknown) Face and sinus : face symmetric (units unknown) (unknown) (unknown) (no date) (unknown) (unknown) Family History (Updated 06/28/21 @ 18:47 by Sophia Gama) (units unknown) (unknown) (unknown) (no date) (unknown) (unknown) [facility] (units unknown) (unknown) (unknown) (no date) (unknown) (unknown) GI bleeding (-2008) (units unknown) (unknown) (unknown) (no date) (unknown) (unknown) (units unknown) (unknown) (unknown) (no date) (unknown) (unknown) General: appea tracee normal, both eyes and all related structures (units unknown) (unknown) (unknown) (no date) (unknown) (unknown) General: cooperative, comfortable and no acute distress (units unknown) (unknown) (unknown) (no date) (unknown) (unknown) General: deferred (u nits unknown) (unknown) (unknown) (no date) (unknown) (unknown) Grandfather Parkinson's disease (units unknown) (unknown) (unknown) (no date) (unknown) (unknown) Grandfather Prostate cancer (units unknown) (unknown) (unknown) (no date) (unknown) (unknown) Grandmother Breast cancer (units unknown) (unknown) (unknown) (no date) (unknown) (unknown) Gynecology Visit (un its unknown) (unknown) (unknown) (no date) (unknown) (unknown) HENMT (units unknown) (unknown) (unknown) (no date) (unknown) (unknown) HPI (units unknown) (unknown) (unknown) (no date) (unknown) (unknown) Head: normal t o inspection, normocephalic and atraumatic (units unknown) (unknown) (unknown) (no date) (unknown) (unknown) Height 5 ft 7 in (un its unknown) (unknown) (unknown) (no date) (unknown) (unknown) Intake Note: (units unknown) (unknown) (unknown) (no date) (unknown) (unknown) Intake perform ed by: Herson Delgado (units unknown) (unknown) (unknown) (no date) (unknown) (unknown) Intake (units unknown) (unknown) (unknown) (no date) (unknown) (unknown) Intake- Ever ryan Staff (units unknown) (unknown) (unknown) (no date) (unknown) (unknown) Judgment: judg ment good (units unknown) (unknown) (unknown) (no date) (unknown) (unknown) Last Menstural Cycle + Details (units unknown) (unknown) (unknown) (no date) (unknown) (unknown) Loc: [facility] (units unknown) (unknown) (unknown) (no date) (unknown) (unknown) [id number] (units unknown) (unknown) (unknown) (no date) (unknown) (unknown) Medical Histor y (Updated 08/19/22 @ 14:18 by Maximo Sagastume MD) (units unknown) (unknown) (unknown) (no date) (unknown) (unknown) Medications (units unknown) (unknown) (unknown) (no date) (unknown) (unknown) Mental Status: mental status grossly normal (units unknown) (unknown) (unknown) (no date) (unknown) (unknown) Mood: congruen t mood (units unknown) (unknown) (unknown) (no date) (unknown) (unknown) 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 a rectocele (units unknown) (unknown) (unknown) (no date) (unknown) (unknown) Neck (units unknown) (unknown) (unknown) (no date) (unknown) (unknown) Neck: normal v isual inspection (units unknown) (unknown) (unknown) (no date) (unknown) (unknown) No Known Drug Allergies Allergy (Verified 08/29/22 08:48) (units unknown) (unknown) (unknown) (no date) (unknown) (unknown) Nutritional Appearance: average body habitus (units unknown) (unknown) (unknown) (no date) (unknown) (unknown) Orientation: a lert and oriented x3 (units unknown) (unknown) (unknown) (no date) (unknown) (unknown) Ovarian cyst (-2020) (units unknown) (unknown) (unknown) (no date) (unknown) (unknown) PFSH (units unknown) (unknown) (unknown) (no date) (unknown) (unknown) Patient: Lorraine Valdez MR#: (units unknown) (unknown) (unknown) (no date) (unknown) (unknown) Position Sitting (un its unknown) (unknown) (unknown) (no date) (unknown) (unknown) Problem-specif ic ROS positives included with the HPI (units unknown) (unknown) (unknown) (no date) (unknown) (unknown) Psych (units unknown) (unknown) (unknown) (no date) (unknown) (unknown) Pt states that the incontinence may be more of a stress/mental/anxie ty (units unknown) (unknown) (unknown) (no date) (unknown) (unknown) ROS Narrative (units unknown) (unknown) (unknown) (no date) (unknown) (unknown) ROS Narrative: (unit s unknown) (unknown) (unknown) (no date) (unknown) (unknown) ROS (units unknown) (unknown) (unknown) (no date) (unknown) (unknown) Reason For Visit (un its unknown) (unknown) (unknown) (no date) (unknown) (unknown) Resp (units unknown) (unknown) (unknown) (no date) (unknown) (unknown) Sclera: sclera e normal (units unknown) (unknown) (unknown) (no date) (unknown) (unknown) February 021 intermittent ?bulging? vaginally. The bulging she experiences (units unknown) (unknown) (unknown) (no date) (unknown) (unknown) She does have a history of urinary tract infections when she was young but has (units unknown) (unknown) (unknown) (no date) (unknown) (unknown) Signed By: (units unknown) (unknown) (unknown) (no date) (unknown) (unknown) Smoking Status : Never smoker (units unknown) (unknown) (unknown) (no date) (unknown) (unknown) Speech and Movement: speech and movement normal (units unknown) (unknown) (unknown) (no date) (unknown) (unknown) Lorraine is a 31-year-old A2, LMP starting 08/24/2022 presents today with (units unknown) (unknown) (unknown) (no date) (unknown) (unknown) This note may have been all or partially generated using voice recognition (units unknown) (unknown) (unknown) (no date) (unknown) (unknown) Thought Conten t: normal (units unknown) (unknown) (unknown) (no date) (unknown) (unknown) Thought Proces s: normal (units unknown) (unknown) (unknown) (no date) (unknown) (unknown) Tobacco + Subs tance Use (units unknown) (unknown) (unknown) (no date) (unknown) (unknown) Tobacco Status (unit s unknown) (unknown) (unknown) (no date) (unknown) (unknown) 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 She is not currently (units unknown) (unknown) (unknown) (no date) (unknown) (unknown) deliv darío. Patient uses condoms for contraception. She has noted since (units unknown) (unknown) (unknown) (no date) (unknown) (unknown) experiencing vaginal bulging. In addition the patient has a 6 year history (units unknown) (unknown) (unknown) (no date) (unknown) (unknown) had regular predictable periods throughout her reproductive life thus far. She (units unknown) (unknown) (unknown) (no date) (unknown) (unknown) have occurred. 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 Occasional wrong-word or 'sound-alike' substitutions may have (units unknown) (unknown) (unknown) (no date) (unknown) (unknown) not had any re cent UTIs. (units unknown) (unknown) (unknown) (no date) (unknown) (unknown) occasional urg e incontinence with no history of stress urinary incontinence. (units unknown) (unknown) (unknown) (no date) (unknown) (unknown) occurred due t o the inherent limitations of voice recognition software. Please (units unknown) (unknown) (unknown) (no date) (unknown) (unknown) read the note carefully and recognize, using context, where these substitutions (units unknown) (unknown) (unknown) (no date) (unknown) (unknown) rectocele or protrusion was going on for approx 1yr but seems to have resolved (units unknown) (unknown) (unknown) (no date) (unknown) (unknown) sentences (units unknown) (unknown) (unknown) (no date) (unknown) (unknown) shortness of b reath or wheezing #6.7 grams 08/19/22 [Rx Confirmed 08/29/22] (units unknown) (unknown) (unknown) (no date) (unknown) (unknown) since April (unit s unknown) (unknown) (unknown) (no date) (unknown) (unknown) software. Alth ough every effort is made to edit content, airfreight operations agent errors (units unknown) (unknown) (unknown) (no date) (unknown) (unknown) spontaneously reduces itself when she relaxes and the last episode of vaginal (units unknown) (unknown) (unknown) (no date) (unknown) (unknown) the aforementi oned complaints. Patient experienced menarche at age 10 and has (units unknown) (unknown) Result panel 57 (unknown) (no date) (unknown) (unknown) (no value) (units unknown) (unknown) (unknown) (no date) (unknown) (unknown) 08/29/22 (units unknown) (unknown) (unknown) (no date) (unknown) (unknown) 08:54 (units unknown) (unknown) (unknown) (no date) (unknown) (unknown) 1st trimester and an elective termination. She is not had vaginal or (units unknown) (unknown) (unknown) (no date) (unknown) (unknown) Affect: normal affect (units unknown) (unknown) (unknown) (no date) (unknown) (unknown) Age/Sex: 32 / F Date of Service: (units unknown) (unknown) (unknown) (no date) (unknown) (unknown) Allergies (units unknown) (unknown) (unknown) (no date) (unknown) (unknown) [place] [address] (units unknown) (unknown) (unknown) (no date) (unknown) (unknown) Anemia (-2016) (unit s unknown) (unknown) (unknown) (no date) (unknown) (unknown) Anxiety (-2014) (uni ts unknown) (unknown) (unknown) (no date) (unknown) (unknown) Appearance: gr ossly normal (units unknown) (unknown) (unknown) (no date) (unknown) (unknown) Assessment + Plan (u nits unknown) (unknown) (unknown) (no date) (unknown) (unknown) Asthma () (unit s unknown) (unknown) (unknown) (no date) (unknown) (unknown) Attending Dr: Glynn Concepcion MD (units unknown) (unknown) (unknown) (no date) (unknown) (unknown) Attitude: cooperative (units unknown) (unknown) (unknown) (no date) (unknown) (unknown) BMI 20.0 (units unknown) (unknown) (unknown) (no date) (unknown) (unknown) BP 96/52 L (units unknown) (unknown) (unknown) (no date) (unknown) (unknown) Blood Pressure Location Rt brachial (units unknown) (unknown) (unknown) (no date) (unknown) (unknown) Chicken pox (-1996) (units unknown) (unknown) (unknown) (no date) (unknown) (unknown) Chief Complaint (uni ts unknown) (unknown) (unknown) (no date) (unknown) (unknown) Chief Complain t: Intermittent vaginal bulging, urge incontinence (units unknown) (unknown) (unknown) (no date) (unknown) (unknown) Conjunctivae: conjunctivae normal (units unknown) (unknown) (unknown) (no date) (unknown) (unknown) Const (units unknown) (unknown) (unknown) (no date) (unknown) (unknown) : 8 Acct:[id number] (units unknown) (unknown) (unknown) (no date) (unknown) (unknown) Date of Last Menstrual Period: 08/24/22 (units unknown) (unknown) (unknown) (no date) (unknown) (unknown) Depression (units unknown) (unknown) (unknown) (no date) (unknown) (unknown) Dept at . (units unknown) (unknown) (unknown) (no date) (unknown) (unknown) Details: (units unknown) (unknown) (unknown) (no date) (unknown) (unknown) Documented By: Glynn Concepcion MD 08/29/22 0835 (units unknown) (unknown) (unknown) (no date) (unknown) (unknown) Draft (units unknown) (unknown) (unknown) (no date) (unknown) (unknown) EOM: EOM intac t bilaterally (units unknown) (unknown) (unknown) (no date) (unknown) (unknown) Ears: hearing grossly normal bilaterally (units unknown) (unknown) (unknown) (no date) (unknown) (unknown) Effort + Inspection: normal respiratory effort and able to speak in complete (units unknown) (unknown) (unknown) (no date) (unknown) (unknown) Exam (units unknown) (unknown) (unknown) (no date) (unknown) (unknown) Eyes (units unknown) (unknown) (unknown) (no date) (unknown) (unknown) Face and sinus : face symmetric (units unknown) (unknown) (unknown) (no date) (unknown) (unknown) Family History (Updated 06/28/21 @ 18:47 by Sophia Gama) (units unknown) (unknown) (unknown) (no date) (unknown) (unknown) [facility] (units unknown) (unknown) (unknown) (no date) (unknown) (unknown) GI bleeding () (units unknown) (unknown) (unknown) (no date) (unknown) (unknown) (units unknown) (unknown) (unknown) (no date) (unknown) (unknown) General: appea tracee normal, both eyes and all related structures (units unknown) (unknown) (unknown) (no date) (unknown) (unknown) General: cooperative, comfortable and no acute distress (units unknown) (unknown) (unknown) (no date) (unknown) (unknown) General: deferred (u nits unknown) (unknown) (unknown) (no date) (unknown) (unknown) Grandfather Parkinson's disease (units unknown) (unknown) (unknown) (no date) (unknown) (unknown) Grandfather Prostate cancer (units unknown) (unknown) (unknown) (no date) (unknown) (unknown) Grandmother Breast cancer (units unknown) (unknown) (unknown) (no date) (unknown) (unknown) Gynecology Visit (un its unknown) (unknown) (unknown) (no date) (unknown) (unknown) HENMT (units unknown) (unknown) (unknown) (no date) (unknown) (unknown) HPI (units unknown) (unknown) (unknown) (no date) (unknown) (unknown) Head: normal t o inspection, normocephalic and atraumatic (units unknown) (unknown) (unknown) (no date) (unknown) (unknown) Height 5 ft 7 in (un its unknown) (unknown) (unknown) (no date) (unknown) (unknown) Intake Note: (units unknown) (unknown) (unknown) (no date) (unknown) (unknown) Intake perform ed by: Herson Delgado (units unknown) (unknown) (unknown) (no date) (unknown) (unknown) Intake (units unknown) (unknown) (unknown) (no date) (unknown) (unknown) Intake- Ever al Staff (units unknown) (unknown) (unknown) (no date) (unknown) (unknown) Judgment: judg ment good (units unknown) (unknown) (unknown) (no date) (unknown) (unknown) Last Menstural Cycle + Details (units unknown) (unknown) (unknown) (no date) (unknown) (unknown) Loc: [facility] (units unknown) (unknown) (unknown) (no date) (unknown) (unknown) [id number] (units unknown) (unknown) (unknown) (no date) (unknown) (unknown) Medical Histor y (Updated 08/19/22 @ 14:18 by Maximo Sagastume MD) (units unknown) (unknown) (unknown) (no date) (unknown) (unknown) Medications (units unknown) (unknown) (unknown) (no date) (unknown) (unknown) Mental Status: mental status grossly normal (units unknown) (unknown) (unknown) (no date) (unknown) (unknown) Mood: congruen t mood (units unknown) (unknown) (unknown) (no date) (unknown) (unknown) 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 a rectocele (units unknown) (unknown) (unknown) (no date) (unknown) (unknown) Neck (units unknown) (unknown) (unknown) (no date) (unknown) (unknown) Neck: normal v isual inspection (units unknown) (unknown) (unknown) (no date) (unknown) (unknown) No Known Drug Allergies Allergy (Verified 08/29/22 08:48) (units unknown) (unknown) (unknown) (no date) (unknown) (unknown) Nutritional Appearance: average body habitus (units unknown) (unknown) (unknown) (no date) (unknown) (unknown) Orders (units unknown) (unknown) (unknown) (no date) (unknown) (unknown) Orders: (units unknown) (unknown) (unknown) (no date) (unknown) (unknown) Orientation: a lert and oriented x3 (units unknown) (unknown) (unknown) (no date) (unknown) (unknown) Ovarian cyst () (units unknown) (unknown) (unknown) (no date) (unknown) (unknown) PFSH (units unknown) (unknown) (unknown) (no date) (unknown) (unknown) Patient: Lorraine Valdez MR#: (units unknown) (unknown) (unknown) (no date) (unknown) (unknown) Position Sitting (un its unknown) (unknown) (unknown) (no date) (unknown) (unknown) Problem-specif ic ROS positives included with the HPI (units unknown) (unknown) (unknown) (no date) (unknown) (unknown) Psych (units unknown) (unknown) (unknown) (no date) (unknown) (unknown) Pt states that the incontinence may be more of a stress/mental/anxie ty (units unknown) (unknown) (unknown) (no date) (unknown) (unknown) ROS Narrative (units unknown) (unknown) (unknown) (no date) (unknown) (unknown) ROS Narrative: (unit s unknown) (unknown) (unknown) (no date) (unknown) (unknown) ROS (units unknown) (unknown) (unknown) (no date) (unknown) (unknown) Reason For Visit (un its unknown) (unknown) (unknown) (no date) (unknown) (unknown) Resp (units unknown) (unknown) (unknown) (no date) (unknown) (unknown) Sclera: sclera e normal (units unknown) (unknown) (unknown) (no date) (unknown) (unknown) February 021 intermittent ?bulging? vaginally. The bulging she experiences (units unknown) (unknown) (unknown) (no date) (unknown) (unknown) She does have a history of urinary tract infections when she was young but has (units unknown) (unknown) (unknown) (no date) (unknown) (unknown) Signed By: (units unknown) (unknown) (unknown) (no date) (unknown) (unknown) Smoking Status : Never smoker (units unknown) (unknown) (unknown) (no date) (unknown) (unknown) Speech and Movement: speech and movement normal (units unknown) (unknown) (unknown) (no date) (unknown) (unknown) Lorraine is a 31-year-old A2, LMP starting 08/24/2022 presents today with (units unknown) (unknown) (unknown) (no date) (unknown) (unknown) This note may have been all or partially generated using voice recognition (units unknown) (unknown) (unknown) (no date) (unknown) (unknown) Thought Conten t: normal (units unknown) (unknown) (unknown) (no date) (unknown) (unknown) Thought Proces s: normal (units unknown) (unknown) (unknown) (no date) (unknown) (unknown) Tobacco + Subs tance Use (units unknown) (unknown) (unknown) (no date) (unknown) (unknown) Tobacco Status (unit s unknown) (unknown) (unknown) (no date) (unknown) (unknown) Urinalysis and Microscopic 2 Weeks N39.41 - Urge incontinence (units unknown) (unknown) (unknown) (no date) (unknown) (unknown) 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 She is not currently (units unknown) (unknown) (unknown) (no date) (unknown) (unknown) deliv darío. Patient uses condoms for contraception. She has noted since (units unknown) (unknown) (unknown) (no date) (unknown) (unknown) experiencing vaginal bulging. In addition the patient has a 6 year history (units unknown) (unknown) (unknown) (no date) (unknown) (unknown) had regular predictable periods throughout her reproductive life thus far. She (units unknown) (unknown) (unknown) (no date) (unknown) (unknown) have occurred. 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 Occasional wrong-word or 'sound-alike' substitutions may have (units unknown) (unknown) (unknown) (no date) (unknown) (unknown) not had any re cent UTIs. (units unknown) (unknown) (unknown) (no date) (unknown) (unknown) occasional urg e incontinence with no history of stress urinary incontinence. (units unknown) (unknown) (unknown) (no date) (unknown) (unknown) occurred due t o the inherent limitations of voice recognition software. Please (units unknown) (unknown) (unknown) (no date) (unknown) (unknown) read the note carefully and recognize, using context, where these substitutions (units unknown) (unknown) (unknown) (no date) (unknown) (unknown) rectocele or protrusion was going on for approx 1yr but seems to have resolved (units unknown) (unknown) (unknown) (no date) (unknown) (unknown) sentences (units unknown) (unknown) (unknown) (no date) (unknown) (unknown) shortness of b reath or wheezing #6.7 grams 08/19/22 [Rx Confirmed 08/29/22] (units unknown) (unknown) (unknown) (no date) (unknown) (unknown) since April (unit s unknown) (unknown) (unknown) (no date) (unknown) (unknown) software. Alth ough every effort is made to edit content, airfreight operations agent errors (units unknown) (unknown) (unknown) (no date) (unknown) (unknown) spontaneously reduces itself when she relaxes and the last episode of vaginal (units unknown) (unknown) (unknown) (no date) (unknown) (unknown) the aforementi oned complaints. Patient experienced menarche at age 10 and has (units unknown) (unknown) Result panel 58 (unknown) (no date) (unknown) (unknown) (no value) (units unknown) (unknown) (unknown) (no date) (unknown) (unknown) 08/29/22 (units unknown) (unknown) (unknown) (no date) (unknown) (unknown) 08:54 (units unknown) (unknown) (unknown) (no date) (unknown) (unknown) 1st trimester and an elective termination. She is not had vaginal or (units unknown) (unknown) (unknown) (no date) (unknown) (unknown) Affect: normal affect (units unknown) (unknown) (unknown) (no date) (unknown) (unknown) Age/Sex: 32 / F Date of Service: (units unknown) (unknown) (unknown) (no date) (unknown) (unknown) Allergies (units unknown) (unknown) (unknown) (no date) (unknown) (unknown) [place] [address] (units unknown) (unknown) (unknown) (no date) (unknown) (unknown) Anemia (-2016) (unit s unknown) (unknown) (unknown) (no date) (unknown) (unknown) Anxiety (-2014) (uni ts unknown) (unknown) (unknown) (no date) (unknown) (unknown) Appearance: gr ossly normal (units unknown) (unknown) (unknown) (no date) (unknown) (unknown) Assessment + Plan (u nits unknown) (unknown) (unknown) (no date) (unknown) (unknown) Asthma () (unit s unknown) (unknown) (unknown) (no date) (unknown) (unknown) Attending Dr: Glynn Concepcion MD (units unknown) (unknown) (unknown) (no date) (unknown) (unknown) Attitude: cooperative (units unknown) (unknown) (unknown) (no date) (unknown) (unknown) BMI 20.0 (units unknown) (unknown) (unknown) (no date) (unknown) (unknown) BP 96/52 L (units unknown) (unknown) (unknown) (no date) (unknown) (unknown) Blood Pressure Location Rt brachial (units unknown) (unknown) (unknown) (no date) (unknown) (unknown) Chicken pox (-1996) (units unknown) (unknown) (unknown) (no date) (unknown) (unknown) Chief Complaint (uni ts unknown) (unknown) (unknown) (no date) (unknown) (unknown) Chief Complain t: Intermittent vaginal bulging, urge incontinence (units unknown) (unknown) (unknown) (no date) (unknown) (unknown) Conjunctivae: conjunctivae normal (units unknown) (unknown) (unknown) (no date) (unknown) (unknown) Const (units unknown) (unknown) (unknown) (no date) (unknown) (unknown) : 8 Acct:[id number] (units unknown) (unknown) (unknown) (no date) (unknown) (unknown) Date of Last Menstrual Period: 08/24/22 (units unknown) (unknown) (unknown) (no date) (unknown) (unknown) Depression (units unknown) (unknown) (unknown) (no date) (unknown) (unknown) Dept at . (units unknown) (unknown) (unknown) (no date) (unknown) (unknown) Details: (units unknown) (unknown) (unknown) (no date) (unknown) (unknown) Documented By: Glynn Concepcion MD 08/29/22 0844 (units unknown) (unknown) (unknown) (no date) (unknown) (unknown) Draft (units unknown) (unknown) (unknown) (no date) (unknown) (unknown) EOM: EOM intac t bilaterally (units unknown) (unknown) (unknown) (no date) (unknown) (unknown) Ears: hearing grossly normal bilaterally (units unknown) (unknown) (unknown) (no date) (unknown) (unknown) Effort + Inspection: normal respiratory effort and able to speak in complete (units unknown) (unknown) (unknown) (no date) (unknown) (unknown) Exam (units unknown) (unknown) (unknown) (no date) (unknown) (unknown) Eyes (units unknown) (unknown) (unknown) (no date) (unknown) (unknown) Face and sinus : face symmetric (units unknown) (unknown) (unknown) (no date) (unknown) (unknown) Family History (Updated 06/28/21 @ 18:47 by Sophia Gama) (units unknown) (unknown) (unknown) (no date) (unknown) (unknown) [facility] (units unknown) (unknown) (unknown) (no date) (unknown) (unknown) GI bleeding () (units unknown) (unknown) (unknown) (no date) (unknown) (unknown) (units unknown) (unknown) (unknown) (no date) (unknown) (unknown) General: appea tracee normal, both eyes and all related structures (units unknown) (unknown) (unknown) (no date) (unknown) (unknown) General: cooperative, comfortable and no acute distress (units unknown) (unknown) (unknown) (no date) (unknown) (unknown) Grandfather Parkinson's disease (units unknown) (unknown) (unknown) (no date) (unknown) (unknown) Grandfather Prostate cancer (units unknown) (unknown) (unknown) (no date) (unknown) (unknown) Grandmother Breast cancer (units unknown) (unknown) (unknown) (no date) (unknown) (unknown) Gynecology Visit (un its unknown) (unknown) (unknown) (no date) (unknown) (unknown) HENMT (units unknown) (unknown) (unknown) (no date) (unknown) (unknown) HPI (units unknown) (unknown) (unknown) (no date) (unknown) (unknown) Head: normal t o inspection, normocephalic and atraumatic (units unknown) (unknown) (unknown) (no date) (unknown) (unknown) Height 5 ft 7 in (un its unknown) (unknown) (unknown) (no date) (unknown) (unknown) Intake Note: (units unknown) (unknown) (unknown) (no date) (unknown) (unknown) Intake perform ed by: Herson Delgado (units unknown) (unknown) (unknown) (no date) (unknown) (unknown) Intake (units unknown) (unknown) (unknown) (no date) (unknown) (unknown) Intake- Ever al Staff (units unknown) (unknown) (unknown) (no date) (unknown) (unknown) Judgment: judg ment good (units unknown) (unknown) (unknown) (no date) (unknown) (unknown) Last Menstural Cycle + Details (units unknown) (unknown) (unknown) (no date) (unknown) (unknown) Loc: [facility] (units unknown) (unknown) (unknown) (no date) (unknown) (unknown) [id number] (units unknown) (unknown) (unknown) (no date) (unknown) (unknown) Medical Histor y (Updated 08/19/22 @ 14:18 by Maximo Sagastume MD) (units unknown) (unknown) (unknown) (no date) (unknown) (unknown) Medications (units unknown) (unknown) (unknown) (no date) (unknown) (unknown) Mental Status: mental status grossly normal (units unknown) (unknown) (unknown) (no date) (unknown) (unknown) Mood: congruen t mood (units unknown) (unknown) (unknown) (no date) (unknown) (unknown) 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 a rectocele (units unknown) (unknown) (unknown) (no date) (unknown) (unknown) Neck (units unknown) (unknown) (unknown) (no date) (unknown) (unknown) Neck: normal v isual inspection (units unknown) (unknown) (unknown) (no date) (unknown) (unknown) No Known Drug Allergies Allergy (Verified 08/29/22 08:48) (units unknown) (unknown) (unknown) (no date) (unknown) (unknown) Nutritional Appearance: average body habitus (units unknown) (unknown) (unknown) (no date) (unknown) (unknown) Orders (units unknown) (unknown) (unknown) (no date) (unknown) (unknown) Orders: (units unknown) (unknown) (unknown) (no date) (unknown) (unknown) Orientation: a lert and oriented x3 (units unknown) (unknown) (unknown) (no date) (unknown) (unknown) Other: (units unknown) (unknown) (unknown) (no date) (unknown) (unknown) Ovarian cyst (-2020) (units unknown) (unknown) (unknown) (no date) (unknown) (unknown) PFSH (units unknown) (unknown) (unknown) (no date) (unknown) (unknown) Patient declin es pelvic exam or even external genital assessment of her (units unknown) (unknown) (unknown) (no date) (unknown) (unknown) Patient: Lorraine Valdez MR#: (units unknown) (unknown) (unknown) (no date) (unknown) (unknown) Position Sitting (un its unknown) (unknown) (unknown) (no date) (unknown) (unknown) Problem-specif ic ROS positives included with the HPI (units unknown) (unknown) (unknown) (no date) (unknown) (unknown) Psych (units unknown) (unknown) (unknown) (no date) (unknown) (unknown) Pt states that the incontinence may be more of a stress/mental/anxie ty (units unknown) (unknown) (unknown) (no date) (unknown) (unknown) ROS Narrative (units unknown) (unknown) (unknown) (no date) (unknown) (unknown) ROS Narrative: (unit s unknown) (unknown) (unknown) (no date) (unknown) (unknown) ROS (units unknown) (unknown) (unknown) (no date) (unknown) (unknown) Reason For Visit (un its unknown) (unknown) (unknown) (no date) (unknown) (unknown) Resp (units unknown) (unknown) (unknown) (no date) (unknown) (unknown) Sclera: sclera e normal (units unknown) (unknown) (unknown) (no date) (unknown) (unknown) February 021 intermittent ?bulging? vaginally. The bulging she experiences (units unknown) (unknown) (unknown) (no date) (unknown) (unknown) She does have a history of urinary tract infections when she was young but has (units unknown) (unknown) (unknown) (no date) (unknown) (unknown) Signed By: (units unknown) (unknown) (unknown) (no date) (unknown) (unknown) Smoking Status : Never smoker (units unknown) (unknown) (unknown) (no date) (unknown) (unknown) Speech and Movement: speech and movement normal (units unknown) (unknown) (unknown) (no date) (unknown) (unknown) Lorraine is a 31-year-old A2, LMP starting 08/24/2022 presents today with (units unknown) (unknown) (unknown) (no date) (unknown) (unknown) This note may have been all or partially generated using voice recognition (units unknown) (unknown) (unknown) (no date) (unknown) (unknown) Thought Conten t: normal (units unknown) (unknown) (unknown) (no date) (unknown) (unknown) Thought Proces s: normal (units unknown) (unknown) (unknown) (no date) (unknown) (unknown) Tobacco + Subs tance Use (units unknown) (unknown) (unknown) (no date) (unknown) (unknown) Tobacco Status (unit s unknown) (unknown) (unknown) (no date) (unknown) (unknown) Urinalysis and Microscopic 2 Weeks N39.41 - Urge incontinence (units unknown) (unknown) (unknown) (no date) (unknown) (unknown) 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 She is not currently (units unknown) (unknown) (unknown) (no date) (unknown) (unknown) deliv darío. Patient uses condoms for contraception. She has noted since (units unknown) (unknown) (unknown) (no date) (unknown) (unknown) experiencing vaginal bulging. In addition the patient has a 6 year history (units unknown) (unknown) (unknown) (no date) (unknown) (unknown) had regular predictable periods throughout her reproductive life thus far. She (units unknown) (unknown) (unknown) (no date) (unknown) (unknown) have occurred. 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 Occasional wrong-word or 'sound-alike' substitutions may have (units unknown) (unknown) (unknown) (no date) (unknown) (unknown) not had any re cent UTIs. (units unknown) (unknown) (unknown) (no date) (unknown) (unknown) occasional urg e incontinence with no history of stress urinary incontinence. (units unknown) (unknown) (unknown) (no date) (unknown) (unknown) occurred due t o the inherent limitations of voice recognition software. Please (units unknown) (unknown) (unknown) (no date) (unknown) (unknown) read the note carefully and recognize, using context, where these substitutions (units unknown) (unknown) (unknown) (no date) (unknown) (unknown) rectocele or protrusion was going on for approx 1yr but seems to have resolved (units unknown) (unknown) (unknown) (no date) (unknown) (unknown) sentences (units unknown) (unknown) (unknown) (no date) (unknown) (unknown) shortness of b reath or wheezing #6.7 grams 08/19/22 [Rx Confirmed 08/29/22] (units unknown) (unknown) (unknown) (no date) (unknown) (unknown) since April (unit s unknown) (unknown) (unknown) (no date) (unknown) (unknown) software. Alth ough every effort is made to edit content, airfreight operations agent errors (units unknown) (unknown) (unknown) (no date) (unknown) (unknown) spontaneously reduces itself when she relaxes and the last episode of vaginal (units unknown) (unknown) (unknown) (no date) (unknown) (unknown) the aforementi oned complaints. Patient experienced menarche at age 10 and has (units unknown) (unknown) Result panel 59 (unknown) (no date) (unknown) (unknown) (no value) (units unknown) (unknown) (unknown) (no date) (unknown) (unknown) (1) Urge incontinence: (units unknown) (unknown) (unknown) (no date) (unknown) (unknown) 08/29/22 (units unknown) (unknown) (unknown) (no date) (unknown) (unknown) 08:54 (units unknown) (unknown) (unknown) (no date) (unknown) (unknown) 1st trimester and an elective termination. She is not had vaginal or (units unknown) (unknown) (unknown) (no date) (unknown) (unknown) Absent the onesimo lity to examined the patient, it is impossible to fully assess (units unknown) (unknown) (unknown) (no date) (unknown) (unknown) Affect: normal affect (units unknown) (unknown) (unknown) (no date) (unknown) (unknown) Age/Sex: 32 / F Date of Service: (units unknown) (unknown) (unknown) (no date) (unknown) (unknown) Allergies (units unknown) (unknown) (unknown) (no date) (unknown) (unknown) [place] [id number] (units unknown) (unknown) (unknown) (no date) (unknown) (unknown) Anemia (-2016) (unit s unknown) (unknown) (unknown) (no date) (unknown) (unknown) Anxiety (-2014) (uni ts unknown) (unknown) (unknown) (no date) (unknown) (unknown) Appearance: gr ossly normal (units unknown) (unknown) (unknown) (no date) (unknown) (unknown) Assessment + Plan (u nits unknown) (unknown) (unknown) (no date) (unknown) (unknown) Asthma () (unit s unknown) (unknown) (unknown) (no date) (unknown) (unknown) Attending Dr: Glynn Concepcion MD (units unknown) (unknown) (unknown) (no date) (unknown) (unknown) Attitude: cooperative (units unknown) (unknown) (unknown) (no date) (unknown) (unknown) BMI 20.0 (units unknown) (unknown) (unknown) (no date) (unknown) (unknown) BP 96/52 L (units unknown) (unknown) (unknown) (no date) (unknown) (unknown) Blood Pressure Location Rt brachial (units unknown) (unknown) (unknown) (no date) (unknown) (unknown) Chicken pox () (units unknown) (unknown) (unknown) (no date) (unknown) (unknown) Chief Complaint (uni ts unknown) (unknown) (unknown) (no date) (unknown) (unknown) Chief Complain t: Intermittent vaginal bulging, urge incontinence (units unknown) (unknown) (unknown) (no date) (unknown) (unknown) Conjunctivae: conjunctivae normal (units unknown) (unknown) (unknown) (no date) (unknown) (unknown) Const (units unknown) (unknown) (unknown) (no date) (unknown) (unknown) Counseling and educating the patient/family/personal care aide: 10 (units unknown) (unknown) (unknown) (no date) (unknown) (unknown) : 8 Acct:[id number] (units unknown) (unknown) (unknown) (no date) (unknown) (unknown) Date of Last Menstrual Period: 08/24/22 (units unknown) (unknown) (unknown) (no date) (unknown) (unknown) Depression (units unknown) (unknown) (unknown) (no date) (unknown) (unknown) Dept at . (units unknown) (unknown) (unknown) (no date) (unknown) (unknown) Details: (units unknown) (unknown) (unknown) (no date) (unknown) (unknown) Documented By: Glynn Concepcion MD 08/29/22 0844 (units unknown) (unknown) (unknown) (no date) (unknown) (unknown) Documenting clinical information in EHR/Medical record: 5 (units unknown) (unknown) (unknown) (no date) (unknown) (unknown) Draft (units unknown) (unknown) (unknown) (no date) (unknown) (unknown) EOM: EOM intac t bilaterally (units unknown) (unknown) (unknown) (no date) (unknown) (unknown) Ears: hearing grossly normal bilaterally (units unknown) (unknown) (unknown) (no date) (unknown) (unknown) Effort + Inspection: normal respiratory effort and able to speak in complete (units unknown) (unknown) (unknown) (no date) (unknown) (unknown) Exam (units unknown) (unknown) (unknown) (no date) (unknown) (unknown) Eyes (units unknown) (unknown) (unknown) (no date) (unknown) (unknown) Face and sinus : face symmetric (units unknown) (unknown) (unknown) (no date) (unknown) (unknown) Family History (Updated 06/28/21 @ 18:47 by Sophia Gama) (units unknown) (unknown) (unknown) (no date) (unknown) (unknown) [facility] (units unknown) (unknown) (unknown) (no date) (unknown) (unknown) Further evalua tion here will be on an as needed basis. (units unknown) (unknown) (unknown) (no date) (unknown) (unknown) GI bleeding () (units unknown) (unknown) (unknown) (no date) (unknown) (unknown) (units unknown) (unknown) (unknown) (no date) (unknown) (unknown) General: appea tracee normal, both eyes and all related structures (units unknown) (unknown) (unknown) (no date) (unknown) (unknown) General: cooperative, comfortable and no acute distress (units unknown) (unknown) (unknown) (no date) (unknown) (unknown) Grandfather Parkinson's disease (units unknown) (unknown) (unknown) (no date) (unknown) (unknown) Grandfather Prostate cancer (units unknown) (unknown) (unknown) (no date) (unknown) (unknown) Grandmother Breast cancer (units unknown) (unknown) (unknown) (no date) (unknown) (unknown) Gynecology Visit (un its unknown) (unknown) (unknown) (no date) (unknown) (unknown) HENMT (units unknown) (unknown) (unknown) (no date) (unknown) (unknown) HPI (units unknown) (unknown) (unknown) (no date) (unknown) (unknown) Head: normal t o inspection, normocephalic and atraumatic (units unknown) (unknown) (unknown) (no date) (unknown) (unknown) Height 5 ft 7 in (un its unknown) (unknown) (unknown) (no date) (unknown) (unknown) Intake Note: (units unknown) (unknown) (unknown) (no date) (unknown) (unknown) Intake perform ed by: Herson Delgado (units unknown) (unknown) (unknown) (no date) (unknown) (unknown) Intake (units unknown) (unknown) (unknown) (no date) (unknown) (unknown) Intake- Ever al Staff (units unknown) (unknown) (unknown) (no date) (unknown) (unknown) Judgment: judg ment good (units unknown) (unknown) (unknown) (no date) (unknown) (unknown) Last Menstural Cycle + Details (units unknown) (unknown) (unknown) (no date) (unknown) (unknown) Loc: [facility] (units unknown) (unknown) (unknown) (no date) (unknown) (unknown) [id number] (units unknown) (unknown) (unknown) (no date) (unknown) (unknown) Medical Histor y (Updated 08/19/22 @ 14:18 by Maximo Sagastume MD) (units unknown) (unknown) (unknown) (no date) (unknown) (unknown) Medications (units unknown) (unknown) (unknown) (no date) (unknown) (unknown) Mental Status: mental status grossly normal (units unknown) (unknown) (unknown) (no date) (unknown) (unknown) Mood: congruen t mood (units unknown) (unknown) (unknown) (no date) (unknown) (unknown) 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 a rectocele (units unknown) (unknown) (unknown) (no date) (unknown) (unknown) Neck (units unknown) (unknown) (unknown) (no date) (unknown) (unknown) Neck: normal v isual inspection (units unknown) (unknown) (unknown) (no date) (unknown) (unknown) No Known Drug Allergies Allergy (Verified 08/29/22 08:48) (units unknown) (unknown) (unknown) (no date) (unknown) (unknown) Nutritional Appearance: average body habitus (units unknown) (unknown) (unknown) (no date) (unknown) (unknown) Obtaining and/ or reviewing separately obtained history: 5 (units unknown) (unknown) (unknown) (no date) (unknown) (unknown) Orders (units unknown) (unknown) (unknown) (no date) (unknown) (unknown) Orders: (units unknown) (unknown) (unknown) (no date) (unknown) (unknown) Orientation: a lert and oriented x3 (units unknown) (unknown) (unknown) (no date) (unknown) (unknown) Other: (units unknown) (unknown) (unknown) (no date) (unknown) (unknown) Ovarian cyst (-2020) (units unknown) (unknown) (unknown) (no date) (unknown) (unknown) PFSH (units unknown) (unknown) (unknown) (no date) (unknown) (unknown) Patient declin es pelvic exam or even external genital assessment of her (units unknown) (unknown) (unknown) (no date) (unknown) (unknown) Patient: Lorraine Valdez MR#: (units unknown) (unknown) (unknown) (no date) (unknown) (unknown) Plan (units unknown) (unknown) (unknown) (no date) (unknown) (unknown) Position Sitting (un its unknown) (unknown) (unknown) (no date) (unknown) (unknown) Preparing to s ee the patient, i.e., chart review, review of tests: 5 (units unknown) (unknown) (unknown) (no date) (unknown) (unknown) [facility]. (units unknown) (unknown) (unknown) (no date) (unknown) (unknown) Problem-specif ic ROS positives included with the HPI (units unknown) (unknown) (unknown) (no date) (unknown) (unknown) Psych (units unknown) (unknown) (unknown) (no date) (unknown) (unknown) Pt states that the incontinence may be more of a stress/mental/anxie ty (units unknown) (unknown) (unknown) (no date) (unknown) (unknown) ROS Narrative (units unknown) (unknown) (unknown) (no date) (unknown) (unknown) ROS Narrative: (unit s unknown) (unknown) (unknown) (no date) (unknown) (unknown) ROS (units unknown) (unknown) (unknown) (no date) (unknown) (unknown) Reason For Visit (un its unknown) (unknown) (unknown) (no date) (unknown) (unknown) Referring and communicating with other health professionals: 5 (units unknown) (unknown) (unknown) (no date) (unknown) (unknown) Resp (units unknown) (unknown) (unknown) (no date) (unknown) (unknown) Sclera: sclera e normal (units unknown) (unknown) (unknown) (no date) (unknown) (unknown) February 021 intermittent ?bulging? vaginally. The bulging she experiences (units unknown) (unknown) (unknown) (no date) (unknown) (unknown) She does have a history of urinary tract infections when she was young but has (units unknown) (unknown) (unknown) (no date) (unknown) (unknown) Signed By: (units unknown) (unknown) (unknown) (no date) (unknown) (unknown) Smoking Status : Never smoker (units unknown) (unknown) (unknown) (no date) (unknown) (unknown) Speech and Movement: speech and movement normal (units unknown) (unknown) (unknown) (no date) (unknown) (unknown) Status: Acute (units unknown) (unknown) (unknown) (no date) (unknown) (unknown) Lorraine is a 31-year-old A2, LMP starting 08/24/2022 presents today with (units unknown) (unknown) (unknown) (no date) (unknown) (unknown) This note may have been all or partially generated using voice recognition (units unknown) (unknown) (unknown) (no date) (unknown) (unknown) Thought Conten t: normal (units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 have (units unknown) (unknown) (unknown) (no date) (unknown) (unknown) occurred due t o the inherent limitations of voice recognition software. Please (units unknown) (unknown) (unknown) (no date) (unknown) (unknown) read the note carefully and recognize, using context, where these substitutions (units unknown) (unknown) (unknown) (no date) (unknown) (unknown) software. Alth ough every effort is made to edit content, airfreight operations agent errors (units unknown) (unknown) Result panel 62 (unknown) (no date) (unknown) (unknown) (no value) (units unknown) (unknown) (unknown) (no date) (unknown) (unknown) 10/10/22 (units unknown) (unknown) (unknown) (no date) (unknown) (unknown) 09:14 (units unknown) (unknown) (unknown) (no date) (unknown) (unknown) Age/Sex: 32 / F Date of Service: (units unknown) (unknown) (unknown) (no date) (unknown) (unknown) Allergies (units unknown) (unknown) (unknown) (no date) (unknown) (unknown) [place] [id number] (units unknown) (unknown) (unknown) (no date) (unknown) (unknown) Anemia (-2016) (unit s unknown) (unknown) (unknown) (no date) (unknown) (unknown) Anxiety (-2014) (uni ts unknown) (unknown) (unknown) (no date) (unknown) (unknown) Asthma (-1988) (unit s unknown) (unknown) (unknown) (no date) (unknown) (unknown) Attending Dr: Glynn Concepcion MD (units unknown) (unknown) (unknown) (no date) (unknown) (unknown) BMI 19.3 (units unknown) (unknown) (unknown) (no date) (unknown) (unknown) BP 124/64 (units unknown) (unknown) (unknown) (no date) (unknown) (unknown) Blood Pressure Location Rt brachial (units unknown) (unknown) (unknown) (no date) (unknown) (unknown) Chicken pox (-1996) (units unknown) (unknown) (unknown) (no date) (unknown) (unknown) : 8 Acct:[id number] (units unknown) (unknown) (unknown) (no date) (unknown) (unknown) Depression (units unknown) (unknown) (unknown) (no date) (unknown) (unknown) Dept at . (units unknown) (unknown) (unknown) (no date) (unknown) (unknown) Documented By: Glynn Concepcion MD 10/10/22 0855 (units unknown) (unknown) (unknown) (no date) (unknown) (unknown) Draft (units unknown) (unknown) (unknown) (no date) (unknown) (unknown) Family History (Updated 06/28/21 @ 18:47 by Sophia Gama) (units unknown) (unknown) (unknown) (no date) (unknown) (unknown) [facility] (units unknown) (unknown) (unknown) (no date) (unknown) (unknown) GI bleeding (-2008) (units unknown) (unknown) (unknown) (no date) (unknown) (unknown) Grandfather Parkinson's disease (units unknown) (unknown) (unknown) (no date) (unknown) (unknown) Grandfather Prostate cancer (units unknown) (unknown) (unknown) (no date) (unknown) (unknown) Grandmother Breast cancer (units unknown) (unknown) (unknown) (no date) (unknown) (unknown) Gynecology Visit (un its unknown) (unknown) (unknown) (no date) (unknown) (unknown) Height 5 ft 7 in (un its unknown) (unknown) (unknown) (no date) (unknown) (unknown) Intake Note: (units unknown) (unknown) (unknown) (no date) (unknown) (unknown) Intake perform ed by: Herson Delgado (units unknown) (unknown) (unknown) (no date) (unknown) (unknown) Intake (units unknown) (unknown) (unknown) (no date) (unknown) (unknown) Intake- Ever al Staff (units unknown) (unknown) (unknown) (no date) (unknown) (unknown) Loc: [facility] (units unknown) (unknown) (unknown) (no date) (unknown) (unknown) [id number] (units unknown) (unknown) (unknown) (no date) (unknown) (unknown) Medical Histor y (Updated 08/19/22 @ 14:18 by Maximo Sagastume MD) (units unknown) (unknown) (unknown) (no date) (unknown) (unknown) No Known Drug Allergies Allergy (Verified 08/29/22 08:48) (units unknown) (unknown) (unknown) (no date) (unknown) (unknown) Ovarian cyst (-2020) (units unknown) (unknown) (unknown) (no date) (unknown) (unknown) PFSH (units unknown) (unknown) (unknown) (no date) (unknown) (unknown) Patient: Lorraine Valdez MR#: (units unknown) (unknown) (unknown) (no date) (unknown) (unknown) Position Sitting (un its unknown) (unknown) (unknown) (no date) (unknown) (unknown) Pt here for assessment of prolapse that was started previously (units unknown) (unknown) (unknown) (no date) (unknown) (unknown) Reason For Visit (un its unknown) (unknown) (unknown) (no date) (unknown) (unknown) She states augusto t she has an appointment set up with PT but has not been to see (units unknown) (unknown) (unknown) (no date) (unknown) (unknown) Signed By: (units unknown) (unknown) (unknown) (no date) (unknown) (unknown) Smoking Status : Never smoker (units unknown) (unknown) (unknown) (no date) (unknown) (unknown) This note may have been all or partially generated using voice recognition (units unknown) (unknown) (unknown) (no date) (unknown) (unknown) Tobacco + Subs tance Use (units unknown) (unknown) (unknown) (no date) (unknown) (unknown) Tobacco Status (unit s unknown) (unknown) (unknown) (no date) (unknown) (unknown) Visit Reasons: finish assessment of prolapse- (units unknown) (unknown) (unknown) (no date) (unknown) (unknown) Vitals (units unknown) (unknown) (unknown) (no date) (unknown) (unknown) Weight 123 lb (units unknown) (unknown) (unknown) (no date) (unknown) (unknown) have occurred. If there are any questions, please contact the Medical Records (units unknown) (unknown) (unknown) (no date) (unknown) (unknown) may occur. Occasional wrong-word or 'sound-alike' substitutions may have (units unknown) (unknown) (unknown) (no date) (unknown) (unknown) occurred due t o the inherent limitations of voice recognition software. Please (units unknown) (unknown) (unknown) (no date) (unknown) (unknown) read the note carefully and recognize, using context, where these substitutions (units unknown) (unknown) (unknown) (no date) (unknown) (unknown) software. Alth ough every effort is made to edit content, airfreight operations agent errors (units unknown) (unknown) (unknown) (no date) (unknown) (unknown) them yet (units unknown) (unknown) Result panel 63 (unknown) (no date) (unknown) (unknown) (no value) (units unknown) (unknown) (unknown) (no date) (unknown) (unknown) 10/10/22 (units unknown) (unknown) (unknown) (no date) (unknown) (unknown) 09:14 (units unknown) (unknown) (unknown) (no date) (unknown) (unknown) Age/Sex: 32 / F Date of Service: (units unknown) (unknown) (unknown) (no date) (unknown) (unknown) Allergies (units unknown) (unknown) (unknown) (no date) (unknown) (unknown) [place] [id number] (units unknown) (unknown) (unknown) (no date) (unknown) (unknown) Anemia (-2016) (unit s unknown) (unknown) (unknown) (no date) (unknown) (unknown) Anxiety (-2014) (uni ts unknown) (unknown) (unknown) (no date) (unknown) (unknown) Asthma (-1988) (unit s unknown) (unknown) (unknown) (no date) (unknown) (unknown) Attending Dr: Glynn Concepcion MD (units unknown) (unknown) (unknown) (no date) (unknown) (unknown) BMI 19.3 (units unknown) (unknown) (unknown) (no date) (unknown) (unknown) BP 124/64 (units unknown) (unknown) (unknown) (no date) (unknown) (unknown) Blood Pressure Location Rt brachial (units unknown) (unknown) (unknown) (no date) (unknown) (unknown) Chicken pox (-1996) (units unknown) (unknown) (unknown) (no date) (unknown) (unknown) Chief Complaint (uni ts unknown) (unknown) (unknown) (no date) (unknown) (unknown) Chief Complain t: Follow-up, possible prolapse (units unknown) (unknown) (unknown) (no date) (unknown) (unknown) : 8 Acct:[id number] (units unknown) (unknown) (unknown) (no date) (unknown) (unknown) Depression (units unknown) (unknown) (unknown) (no date) (unknown) (unknown) Dept at . (units unknown) (unknown) (unknown) (no date) (unknown) (unknown) Details: (units unknown) (unknown) (unknown) (no date) (unknown) (unknown) Documented By: Glynn Concepcion MD 10/10/22 0855 (units unknown) (unknown) (unknown) (no date) (unknown) (unknown) Draft (units unknown) (unknown) (unknown) (no date) (unknown) (unknown) Family History (Updated 06/28/21 @ 18:47 by Sophia Gama) (units unknown) (unknown) (unknown) (no date) (unknown) (unknown) [facility] (units unknown) (unknown) (unknown) (no date) (unknown) (unknown) GI bleeding (-2008) (units unknown) (unknown) (unknown) (no date) (unknown) (unknown) Grandfather Parkinson's disease (units unknown) (unknown) (unknown) (no date) (unknown) (unknown) Grandfather Prostate cancer (units unknown) (unknown) (unknown) (no date) (unknown) (unknown) Grandmother Breast cancer (units unknown) (unknown) (unknown) (no date) (unknown) (unknown) Gynecology Visit (un its unknown) (unknown) (unknown) (no date) (unknown) (unknown) HPI (units unknown) (unknown) (unknown) (no date) (unknown) (unknown) Height 5 ft 7 in (un its unknown) (unknown) (unknown) (no date) (unknown) (unknown) Intake Note: (units unknown) (unknown) (unknown) (no date) (unknown) (unknown) Intake perform ed by: Herson Delgado (units unknown) (unknown) (unknown) (no date) (unknown) (unknown) Intake (units unknown) (unknown) (unknown) (no date) (unknown) (unknown) Intake- Ever al Staff (units unknown) (unknown) (unknown) (no date) (unknown) (unknown) Loc: [facility] (units unknown) (unknown) (unknown) (no date) (unknown) (unknown) [id number] (units unknown) (unknown) (unknown) (no date) (unknown) (unknown) Medical Histor y (Updated 08/19/22 @ 14:18 by Maximo Sagastume MD) (units unknown) (unknown) (unknown) (no date) (unknown) (unknown) No Known Drug Allergies Allergy (Verified 08/29/22 08:48) (units unknown) (unknown) (unknown) (no date) (unknown) (unknown) Ovarian cyst () (units unknown) (unknown) (unknown) (no date) (unknown) (unknown) PFSH (units unknown) (unknown) (unknown) (no date) (unknown) (unknown) Patient: Lorraine Valdez MR#: (units unknown) (unknown) (unknown) (no date) (unknown) (unknown) Position Sitting (un its unknown) (unknown) (unknown) (no date) (unknown) (unknown) Pt here for assessment of prolapse that was started previously (units unknown) (unknown) (unknown) (no date) (unknown) (unknown) Reason For Visit (un its unknown) (unknown) (unknown) (no date) (unknown) (unknown) She states augusto t she has an appointment set up with PT but has not been to see (units unknown) (unknown) (unknown) (no date) (unknown) (unknown) Signed By: (units unknown) (unknown) (unknown) (no date) (unknown) (unknown) Smoking Status : Never smoker (units unknown) (unknown) (unknown) (no date) (unknown) (unknown) Lorraine anaya rns today mentally and physically prepared for on exam to more (units unknown) (unknown) (unknown) (no date) (unknown) (unknown) This note may have been all or partially generated using voice recognition (units unknown) (unknown) (unknown) (no date) (unknown) (unknown) Tobacco + Subs tance Use (units unknown) (unknown) (unknown) (no date) (unknown) (unknown) Tobacco Status (unit s unknown) (unknown) (unknown) (no date) (unknown) (unknown) Visit Reasons: finish assessment of prolapse- (units unknown) (unknown) (unknown) (no date) (unknown) (unknown) Vitals (units unknown) (unknown) (unknown) (no date) (unknown) (unknown) Weight 123 lb (units unknown) (unknown) (unknown) (no date) (unknown) (unknown) fully assess possible prolapse which is intermittent. Since her visit she is (units unknown) (unknown) (unknown) (no date) (unknown) (unknown) had another ep isode of the bulging but as before, it has resolved now. She is (units unknown) (unknown) (unknown) (no date) (unknown) (unknown) have occurred. If there are any questions, please contact the Medical Records (units unknown) (unknown) (unknown) (no date) (unknown) (unknown) may occur. Occasional wrong-word or 'sound-alike' substitutions may have (units unknown) (unknown) (unknown) (no date) (unknown) (unknown) occurred due t o the inherent limitations of voice recognition software. Please (units unknown) (unknown) (unknown) (no date) (unknown) (unknown) read the note carefully and recognize, using context, where these substitutions (units unknown) (unknown) (unknown) (no date) (unknown) (unknown) scheduled to s vasquez Baker at the end of this month. (units unknown) (unknown) (unknown) (no date) (unknown) (unknown) software. Alth ough every effort is made to edit content, airfreight operations agent errors (units unknown) (unknown) (unknown) (no date) (unknown) (unknown) them yet (units unknown) (unknown) Result panel 64 (unknown) (no date) (unknown) (unknown) (no value) (units unknown) (unknown) (unknown) (no date) (unknown) (unknown) (1) Urge incontinence: (units unknown) (unknown) (unknown) (no date) (unknown) (unknown) (Ectropion not ed) and no lesions (units unknown) (unknown) (unknown) (no date) (unknown) (unknown) 10/10/22 (units unknown) (unknown) (unknown) (no date) (unknown) (unknown) 09:14 (units unknown) (unknown) (unknown) (no date) (unknown) (unknown) Affect: normal affect (units unknown) (unknown) (unknown) (no date) (unknown) (unknown) Age/Sex: 32 / F Date of Service: (units unknown) (unknown) (unknown) (no date) (unknown) (unknown) Allergies (units unknown) (unknown) (unknown) (no date) (unknown) (unknown) [place] [address] (units unknown) (unknown) (unknown) (no date) (unknown) (unknown) Anemia (-2016) (unit s unknown) (unknown) (unknown) (no date) (unknown) (unknown) Anxiety (-2014) (uni ts unknown) (unknown) (unknown) (no date) (unknown) (unknown) Appearance: gr ossly normal (units unknown) (unknown) (unknown) (no date) (unknown) (unknown) Assessment + Plan (u nits unknown) (unknown) (unknown) (no date) (unknown) (unknown) Asthma () (unit s unknown) (unknown) (unknown) (no date) (unknown) (unknown) Attending Dr: Glynn Concepcion MD (units unknown) (unknown) (unknown) (no date) (unknown) (unknown) Attitude: cooperative (units unknown) (unknown) (unknown) (no date) (unknown) (unknown) BMI 19.3 (units unknown) (unknown) (unknown) (no date) (unknown) (unknown) BP 124/64 (units unknown) (unknown) (unknown) (no date) (unknown) (unknown) Bimanual Exam- Adnexa, other: normal and apex supported (units unknown) (unknown) (unknown) (no date) (unknown) (unknown) Bimanual Exam- Vagina + Uterus: other (Bimanual not performed) (units unknown) (unknown) (unknown) (no date) (unknown) (unknown) Blood Pressure Location Rt brachial (units unknown) (unknown) (unknown) (no date) (unknown) (unknown) Chicken pox (-1996) (units unknown) (unknown) (unknown) (no date) (unknown) (unknown) Chief Complaint (uni ts unknown) (unknown) (unknown) (no date) (unknown) (unknown) Chief Complain t: Follow-up, possible prolapse (units unknown) (unknown) (unknown) (no date) (unknown) (unknown) Conjunctivae: conjunctivae normal (units unknown) (unknown) (unknown) (no date) (unknown) (unknown) Const (units unknown) (unknown) (unknown) (no date) (unknown) (unknown) : 8 Acct:[id number] (units unknown) (unknown) (unknown) (no date) (unknown) (unknown) Depression (units unknown) (unknown) (unknown) (no date) (unknown) (unknown) Dept at . (units unknown) (unknown) (unknown) (no date) (unknown) (unknown) Details: (units unknown) (unknown) (unknown) (no date) (unknown) (unknown) Documented By: Glynn Concepcion MD 10/10/22 0855 (units unknown) (unknown) (unknown) (no date) (unknown) (unknown) Draft (units unknown) (unknown) (unknown) (no date) (unknown) (unknown) EOM: EOM intac t bilaterally (units unknown) (unknown) (unknown) (no date) (unknown) (unknown) Ears: hearing grossly normal bilaterally (units unknown) (unknown) (unknown) (no date) (unknown) (unknown) Effort + Inspection: normal respiratory effort and able to speak in complete (units unknown) (unknown) (unknown) (no date) (unknown) (unknown) Exam (units unknown) (unknown) (unknown) (no date) (unknown) (unknown) External Femal e Exam: normal external appearance, normal appearance of the (units unknown) (unknown) (unknown) (no date) (unknown) (unknown) Eyes (units unknown) (unknown) (unknown) (no date) (unknown) (unknown) Face and sinus : face symmetric (units unknown) (unknown) (unknown) (no date) (unknown) (unknown) Family History (Updated 06/28/21 @ 18:47 by Sophia Gama) (units unknown) (unknown) (unknown) (no date) (unknown) (unknown) [facility] (units unknown) (unknown) (unknown) (no date) (unknown) (unknown) GI bleeding (-2008) (units unknown) (unknown) (unknown) (no date) (unknown) (unknown) (units unknown) (unknown) (unknown) (no date) (unknown) (unknown) General: appea tracee normal, both eyes and all related structures (units unknown) (unknown) (unknown) (no date) (unknown) (unknown) General: cooperative, comfortable and no acute distress (units unknown) (unknown) (unknown) (no date) (unknown) (unknown) Grandfather Parkinson's disease (units unknown) (unknown) (unknown) (no date) (unknown) (unknown) Grandfather Prostate cancer (units unknown) (unknown) (unknown) (no date) (unknown) (unknown) Grandmother Breast cancer (units unknown) (unknown) (unknown) (no date) (unknown) (unknown) Gynecology Visit (un its unknown) (unknown) (unknown) (no date) (unknown) (unknown) HENMT (units unknown) (unknown) (unknown) (no date) (unknown) (unknown) HPI (units unknown) (unknown) (unknown) (no date) (unknown) (unknown) Head: normal t o inspection, normocephalic and atraumatic (units unknown) (unknown) (unknown) (no date) (unknown) (unknown) Height 5 ft 7 in (un its unknown) (unknown) (unknown) (no date) (unknown) (unknown) Intake Note: (units unknown) (unknown) (unknown) (no date) (unknown) (unknown) Intake perform ed by: Herson Delgado (units unknown) (unknown) (unknown) (no date) (unknown) (unknown) Intake (units unknown) (unknown) (unknown) (no date) (unknown) (unknown) Intake- Ever al Staff (units unknown) (unknown) (unknown) (no date) (unknown) (unknown) Judgment: judg ment good (units unknown) (unknown) (unknown) (no date) (unknown) (unknown) Loc: [facility] (units unknown) (unknown) (unknown) (no date) (unknown) (unknown) [id number] (units unknown) (unknown) (unknown) (no date) (unknown) (unknown) Medical Histor y (Updated 08/19/22 @ 14:18 by Maximo Sagastume MD) (units unknown) (unknown) (unknown) (no date) (unknown) (unknown) Mental Status: mental status grossly normal (units unknown) (unknown) (unknown) (no date) (unknown) (unknown) Mood: congruen t mood (units unknown) (unknown) (unknown) (no date) (unknown) (unknown) Neck (units unknown) (unknown) (unknown) (no date) (unknown) (unknown) Neck: normal v isual inspection (units unknown) (unknown) (unknown) (no date) (unknown) (unknown) No Known Drug Allergies Allergy (Verified 08/29/22 08:48) (units unknown) (unknown) (unknown) (no date) (unknown) (unknown) Nutritional Appearance: average body habitus (units unknown) (unknown) (unknown) (no date) (unknown) (unknown) OB/External + Speculum: cervical os open (Ectropion noted) (units unknown) (unknown) (unknown) (no date) (unknown) (unknown) Orientation: a lert and oriented x3 (units unknown) (unknown) (unknown) (no date) (unknown) (unknown) Ovarian cyst (-2020) (units unknown) (unknown) (unknown) (no date) (unknown) (unknown) PFSH (units unknown) (unknown) (unknown) (no date) (unknown) (unknown) Patient: Lorraine Valdez MR#: (units unknown) (unknown) (unknown) (no date) (unknown) (unknown) Pelvic Support : normal, no cystocele, no rectocele, no enterocele, apex (units unknown) (unknown) (unknown) (no date) (unknown) (unknown) Position Sitting (un its unknown) (unknown) (unknown) (no date) (unknown) (unknown) Problem-specif ic ROS positives included with the HPI (units unknown) (unknown) (unknown) (no date) (unknown) (unknown) Psych (units unknown) (unknown) (unknown) (no date) (unknown) (unknown) Pt here for assessment of prolapse that was started previously (units unknown) (unknown) (unknown) (no date) (unknown) (unknown) ROS Narrative (units unknown) (unknown) (unknown) (no date) (unknown) (unknown) ROS Narrative: (unit s unknown) (unknown) (unknown) (no date) (unknown) (unknown) ROS (units unknown) (unknown) (unknown) (no date) (unknown) (unknown) Reason For Visit (un its unknown) (unknown) (unknown) (no date) (unknown) (unknown) Resp (units unknown) (unknown) (unknown) (no date) (unknown) (unknown) Sclera: sclera e normal (units unknown) (unknown) (unknown) (no date) (unknown) (unknown) She states augusto t she has an appointment set up with PT but has not been to see (units unknown) (unknown) (unknown) (no date) (unknown) (unknown) Signed By: (units unknown) (unknown) (unknown) (no date) (unknown) (unknown) Smoking Status : Never smoker (units unknown) (unknown) (unknown) (no date) (unknown) (unknown) Speculum Exam - Cervix: normal appearance of the cervix, cervical os open (units unknown) (unknown) (unknown) (no date) (unknown) (unknown) Speculum Exam - Vagina: normal appearance of the vagina, normal vaginal (units unknown) (unknown) (unknown) (no date) (unknown) (unknown) Speculum Exam: cervical os open (Ectropion noted) (units unknown) (unknown) (unknown) (no date) (unknown) (unknown) Speech and Movement: speech and movement normal (units unknown) (unknown) (unknown) (no date) (unknown) (unknown) Status: Acute (units unknown) (unknown) (unknown) (no date) (unknown) (unknown) Lorraine anaya rns today mentally and physically prepared for on exam to more (units unknown) (unknown) (unknown) (no date) (unknown) (unknown) This note may have been all or partially generated using voice recognition (units unknown) (unknown) (unknown) (no date) (unknown) (unknown) Thought Conten t: normal (units unknown) (unknown) (unknown) (no date) (unknown) (unknown) Thought Proces s: normal (units unknown) (unknown) (unknown) (no date) (unknown) (unknown) Tobacco + Subs tance Use (units unknown) (unknown) (unknown) (no date) (unknown) (unknown) Tobacco Status (unit s unknown) (unknown) (unknown) (no date) (unknown) (unknown) Urethra: terra l appearance of the urethra (units unknown) (unknown) (unknown) (no date) (unknown) (unknown) Visit Reasons: finish assessment of prolapse- (units unknown) (unknown) (unknown) (no date) (unknown) (unknown) Vitals (units unknown) (unknown) (unknown) (no date) (unknown) (unknown) Weight 123 lb (units unknown) (unknown) (unknown) (no date) (unknown) (unknown) discharge, not erythematous and no lesions (units unknown) (unknown) (unknown) (no date) (unknown) (unknown) fully assess possible prolapse which is intermittent. Since her visit she is (units unknown) (unknown) (unknown) (no date) (unknown) (unknown) had another ep isode of the bulging but as before, it has resolved now. She is (units unknown) (unknown) (unknown) (no date) (unknown) (unknown) have occurred. If there are any questions, please contact the Medical Records (units unknown) (unknown) (unknown) (no date) (unknown) (unknown) may occur. Occasional wrong-word or 'sound-alike' substitutions may have (units unknown) (unknown) (unknown) (no date) (unknown) (unknown) occurred due t o the inherent limitations of voice recognition software. Please (units unknown) (unknown) (unknown) (no date) (unknown) (unknown) read the note carefully and recognize, using context, where these substitutions (units unknown) (unknown) (unknown) (no date) (unknown) (unknown) scheduled to s vasquez Baker at the end of this month. (units unknown) (unknown) (unknown) (no date) (unknown) (unknown) sentences (units unknown) (unknown) (unknown) (no date) (unknown) (unknown) software. Alth ough every effort is made to edit content, airfreight operations agent errors (units unknown) (unknown) (unknown) (no date) (unknown) (unknown) supported and other (Slight UVJ descent with Valsalva) (units unknown) (unknown) (unknown) (no date) (unknown) (unknown) them yet (units unknown) (unknown) (unknown) (no date) (unknown) (unknown) urethra and no lesions (units unknown) (unknown) Result panel 65 (unknown) (no date) (unknown) (unknown) (no value) (units unknown) (unknown) (unknown) (no date) (unknown) (unknown) (1) Urge incontinence: (units unknown) (unknown) (unknown) (no date) (unknown) (unknown) (Ectropion not ed) and no lesions (units unknown) (unknown) (unknown) (no date) (unknown) (unknown) 10/10/22 0948 (units unknown) (unknown) (unknown) (no date) (unknown) (unknown) 10/10/22 (units unknown) (unknown) (unknown) (no date) (unknown) (unknown) 09:14 (units unknown) (unknown) (unknown) (no date) (unknown) (unknown) Affect: normal affect (units unknown) (unknown) (unknown) (no date) (unknown) (unknown) Age/Sex: 32 / F Date of Service: (units unknown) (unknown) (unknown) (no date) (unknown) (unknown) Allergies (units unknown) (unknown) (unknown) (no date) (unknown) (unknown) [place] [address] (units unknown) (unknown) (unknown) (no date) (unknown) (unknown) Anemia (-2016) (unit s unknown) (unknown) (unknown) (no date) (unknown) (unknown) Anxiety (-2014) (uni ts unknown) (unknown) (unknown) (no date) (unknown) (unknown) Appearance: gr ossly normal (units unknown) (unknown) (unknown) (no date) (unknown) (unknown) Assessment + Plan (u nits unknown) (unknown) (unknown) (no date) (unknown) (unknown) Asthma () (unit s unknown) (unknown) (unknown) (no date) (unknown) (unknown) Attending Dr: Glynn Concepcion MD (units unknown) (unknown) (unknown) (no date) (unknown) (unknown) Attitude: cooperative (units unknown) (unknown) (unknown) (no date) (unknown) (unknown) BMI 19.3 (units unknown) (unknown) (unknown) (no date) (unknown) (unknown) BP 124/64 (units unknown) (unknown) (unknown) (no date) (unknown) (unknown) Bimanual Exam- Adnexa, other: normal and apex supported (units unknown) (unknown) (unknown) (no date) (unknown) (unknown) Bimanual Exam- Vagina + Uterus: other (Bimanual not performed) (units unknown) (unknown) (unknown) (no date) (unknown) (unknown) Blood Pressure Location Rt brachial (units unknown) (unknown) (unknown) (no date) (unknown) (unknown) Chicken pox (-1996) (units unknown) (unknown) (unknown) (no date) (unknown) (unknown) Chief Complaint (uni ts unknown) (unknown) (unknown) (no date) (unknown) (unknown) Chief Complain t: Follow-up, possible prolapse (units unknown) (unknown) (unknown) (no date) (unknown) (unknown) Conjunctivae: conjunctivae normal (units unknown) (unknown) (unknown) (no date) (unknown) (unknown) Const (units unknown) (unknown) (unknown) (no date) (unknown) (unknown) Counseling and educating the patient/family/personal care aide: 5 (units unknown) (unknown) (unknown) (no date) (unknown) (unknown) : 8 Acct:[id number] (units unknown) (unknown) (unknown) (no date) (unknown) (unknown) Depression (units unknown) (unknown) (unknown) (no date) (unknown) (unknown) Dept at . (units unknown) (unknown) (unknown) (no date) (unknown) (unknown) Details: (units unknown) (unknown) (unknown) (no date) (unknown) (unknown) Documented By: Glynn Concepcion MD 10/10/22 0855 (units unknown) (unknown) (unknown) (no date) (unknown) (unknown) Documenting clinical information in EHR/Medical record: 5 (units unknown) (unknown) (unknown) (no date) (unknown) (unknown) EOM: EOM intac t bilaterally (units unknown) (unknown) (unknown) (no date) (unknown) (unknown) Ears: hearing grossly normal bilaterally (units unknown) (unknown) (unknown) (no date) (unknown) (unknown) Effort + Inspection: normal respiratory effort and able to speak in complete (units unknown) (unknown) (unknown) (no date) (unknown) (unknown) Exam (units unknown) (unknown) (unknown) (no date) (unknown) (unknown) External Femal e Exam: normal external appearance, normal appearance of the (units unknown) (unknown) (unknown) (no date) (unknown) (unknown) Eyes (units unknown) (unknown) (unknown) (no date) (unknown) (unknown) Face and sinus : face symmetric (units unknown) (unknown) (unknown) (no date) (unknown) (unknown) Family History (Updated 06/28/21 @ 18:47 by Sophia Gama) (units unknown) (unknown) (unknown) (no date) (unknown) (unknown) [facility] (units unknown) (unknown) (unknown) (no date) (unknown) (unknown) GI bleeding () (units unknown) (unknown) (unknown) (no date) (unknown) (unknown) (units unknown) (unknown) (unknown) (no date) (unknown) (unknown) General: appea tracee normal, both eyes and all related structures (units unknown) (unknown) (unknown) (no date) (unknown) (unknown) General: cooperative, comfortable and no acute distress (units unknown) (unknown) (unknown) (no date) (unknown) (unknown) Grandfather Parkinson's disease (units unknown) (unknown) (unknown) (no date) (unknown) (unknown) Grandfather Prostate cancer (units unknown) (unknown) (unknown) (no date) (unknown) (unknown) Grandmother Breast cancer (units unknown) (unknown) (unknown) (no date) (unknown) (unknown) Gynecology Visit (un its unknown) (unknown) (unknown) (no date) (unknown) (unknown) HENMT (units unknown) (unknown) (unknown) (no date) (unknown) (unknown) HPI (units unknown) (unknown) (unknown) (no date) (unknown) (unknown) Head: normal t o inspection, normocephalic and atraumatic (units unknown) (unknown) (unknown) (no date) (unknown) (unknown) Height 5 ft 7 in (un its unknown) (unknown) (unknown) (no date) (unknown) (unknown) Intake Note: (units unknown) (unknown) (unknown) (no date) (unknown) (unknown) Intake perform ed by: Herson Delgado (units unknown) (unknown) (unknown) (no date) (unknown) (unknown) Intake (units unknown) (unknown) (unknown) (no date) (unknown) (unknown) Intake- Ever al Staff (units unknown) (unknown) (unknown) (no date) (unknown) (unknown) Judgment: judg ment good (units unknown) (unknown) (unknown) (no date) (unknown) (unknown) Loc: [facility] (units unknown) (unknown) (unknown) (no date) (unknown) (unknown) [id number] (units unknown) (unknown) (unknown) (no date) (unknown) (unknown) Medical Histor y (Updated 08/19/22 @ 14:18 by Maximo Sagastume MD) (units unknown) (unknown) (unknown) (no date) (unknown) (unknown) Mental Status: mental status grossly normal (units unknown) (unknown) (unknown) (no date) (unknown) (unknown) Mood: congruen t mood (units unknown) (unknown) (unknown) (no date) (unknown) (unknown) Neck (units unknown) (unknown) (unknown) (no date) (unknown) (unknown) Neck: normal v isual inspection (units unknown) (unknown) (unknown) (no date) (unknown) (unknown) No Known Drug Allergies Allergy (Verified 08/29/22 08:48) (units unknown) (unknown) (unknown) (no date) (unknown) (unknown) No significant abnormalities were noted on today's exam and patient reassured. (units unknown) (unknown) (unknown) (no date) (unknown) (unknown) Nutritional Appearance: average body habitus (units unknown) (unknown) (unknown) (no date) (unknown) (unknown) OB/External + Speculum: cervical os open (Ectropion noted) (units unknown) (unknown) (unknown) (no date) (unknown) (unknown) Obtaining and/ or reviewing separately obtained history: 5 (units unknown) (unknown) (unknown) (no date) (unknown) (unknown) Orientation: a lert and oriented x3 (units unknown) (unknown) (unknown) (no date) (unknown) (unknown) Ovarian cyst (-2020) (units unknown) (unknown) (unknown) (no date) (unknown) (unknown) PFSH (units unknown) (unknown) (unknown) (no date) (unknown) (unknown) Patient: Lorraine Valdez MR#: (units unknown) (unknown) (unknown) (no date) (unknown) (unknown) Pelvic Support : normal, no cystocele, no rectocele, no enterocele, apex (units unknown) (unknown) (unknown) (no date) (unknown) (unknown) Performing a medically appropriate exam and/or evaluation: 5 (units unknown) (unknown) (unknown) (no date) (unknown) (unknown) Plan (units unknown) (unknown) (unknown) (no date) (unknown) (unknown) Position Sitting (un its unknown) (unknown) (unknown) (no date) (unknown) (unknown) Preparing to s ee the patient, i.e., chart review, review of tests: 5 (units unknown) (unknown) (unknown) (no date) (unknown) (unknown) Problem-specif ic ROS positives included with the HPI (units unknown) (unknown) (unknown) (no date) (unknown) (unknown) Psych (units unknown) (unknown) (unknown) (no date) (unknown) (unknown) Pt here for assessment of prolapse that was started previously (units unknown) (unknown) (unknown) (no date) (unknown) (unknown) ROS Narrative (units unknown) (unknown) (unknown) (no date) (unknown) (unknown) ROS Narrative: (unit s unknown) (unknown) (unknown) (no date) (unknown) (unknown) ROS (units unknown) (unknown) (unknown) (no date) (unknown) (unknown) Reason For Visit (un its unknown) (unknown) (unknown) (no date) (unknown) (unknown) Resp (units unknown) (unknown) (unknown) (no date) (unknown) (unknown) Sclera: sclera e normal (units unknown) (unknown) (unknown) (no date) (unknown) (unknown) She states augusto t she has an appointment set up with PT but has not been to see (units unknown) (unknown) (unknown) (no date) (unknown) (unknown) Signed By: <Electronically signed by Glynn Concepcion MD> (units unknown) (unknown) (unknown) (no date) (unknown) (unknown) Signed (units unknown) (unknown) (unknown) (no date) (unknown) (unknown) Smoking Status : Never smoker (units unknown) (unknown) (unknown) (no date) (unknown) (unknown) Speculum Exam - Cervix: normal appearance of the cervix, cervical os open (units unknown) (unknown) (unknown) (no date) (unknown) (unknown) Speculum Exam - Vagina: normal appearance of the vagina, normal vaginal (units unknown) (unknown) (unknown) (no date) (unknown) (unknown) Speculum Exam: cervical os open (Ectropion noted) (units unknown) (unknown) (unknown) (no date) (unknown) (unknown) Speech and Movement: speech and movement normal (units unknown) (unknown) (unknown) (no date) (unknown) (unknown) Status: Acute (units unknown) (unknown) (unknown) (no date) (unknown) (unknown) Lorraine retu rns today mentally and physically prepared for on exam to more (units unknown) (unknown) (unknown) (no date) (unknown) (unknown) These episodes of experiencing a bulge last only about 5 minutes so her (units unknown) (unknown) (unknown) (no date) (unknown) (unknown) This note may have been all or partially generated using voice recognition (units unknown) (unknown) (unknown) (no date) (unknown) (unknown) Thought Conten t: normal (units unknown) (unknown) (unknown) (no date) (unknown) (unknown) Thought Proces s: normal (units unknown) (unknown) (unknown) (no date) (unknown) (unknown) Time Coding Mi nutes Spent: (must be on same date of service/appointment ) (units unknown) (unknown) (unknown) (no date) (unknown) (unknown) Time Spent (units unknown) (unknown) (unknown) (no date) (unknown) (unknown) Tobacco + Subs tance Use (units unknown) (unknown) (unknown) (no date) (unknown) (unknown) Tobacco Status (unit s unknown) (unknown) (unknown) (no date) (unknown) (unknown) Total Time: 25 (unit s unknown) (unknown) (unknown) (no date) (unknown) (unknown) Urethra: terra l appearance of the urethra (units unknown) (unknown) (unknown) (no date) (unknown) (unknown) Visit Reasons: finish assessment of prolapse- (units unknown) (unknown) (unknown) (no date) (unknown) (unknown) Vitals (units unknown) (unknown) (unknown) (no date) (unknown) (unknown) Weight 123 lb (units unknown) (unknown) (unknown) (no date) (unknown) (unknown) ay occur. Occasional wrong-word or 'sound-alike' substitutions may have (units unknown) (unknown) (unknown) (no date) (unknown) (unknown) discharge, not erythematous and no lesions (units unknown) (unknown) (unknown) (no date) (unknown) (unknown) fully assess possible prolapse which is intermittent. Since her visit she is (units unknown) (unknown) (unknown) (no date) (unknown) (unknown) had another ep isode of the bulging but as before, it has resolved now. She is (units unknown) (unknown) (unknown) (no date) (unknown) (unknown) have occurred. If there are any questions, please contact the Medical Records (units unknown) (unknown) (unknown) (no date) (unknown) (unknown) incontinence a nd return as needed for any nurse gynecology issues and/or well-woman exams as (units unknown) (unknown) (unknown) (no date) (unknown) (unknown) isn't feasible . She will however keep her appointment with PT for the urge (units unknown) (unknown) (unknown) (no date) (unknown) (unknown) needed. (units unknown) (unknown) (unknown) (no date) (unknown) (unknown) occurred due t o the inherent limitations of voice recognition software. Please (units unknown) (unknown) (unknown) (no date) (unknown) (unknown) presenting urg ently when she has a bulge so she can be evaluated at that time (units unknown) (unknown) (unknown) (no date) (unknown) (unknown) read the note carefully and recognize, using context, where these substitutions (units unknown) (unknown) (unknown) (no date) (unknown) (unknown) scheduled to s vasquez Baker at the end of this month. (units unknown) (unknown) (unknown) (no date) (unknown) (unknown) sentences (units unknown) (unknown) (unknown) (no date) (unknown) (unknown) software. Alth ough every effort is made to edit content, airfreight operations agent errors m (units unknown) (unknown) (unknown) (no date) (unknown) (unknown) supported and other (Slight UVJ descent with Valsalva) (units unknown) (unknown) (unknown) (no date) (unknown) (unknown) them yet (units unknown) (unknown) (unknown) (no date) (unknown) (unknown) urethra and no lesions (units unknown) (unknown) Social History date description facility 2022-08-19 00:00 Never smoked tobacco (finding) [facility] 2022-08-29 00:00 Never smoked tobacco (finding) [facility] 2022-10-10 00:00 Never smoked tobacco (finding) [facility] Vital Signs date measurement value units 2022-08-19 00:00 BMI 19.9 kg/m2 2022-08-19 00:00 BP_diastolic 58 mmHg 2022-08-19 00:00 BP_systolic 90 mmHg 2022-08-19 00:00 heart_rate 79 /min 2022-08-19 00:00 height_metric 170.18 cm 2022-08-19 00:00 height_standard 67 in 2022-08-19 00:00 o2_saturation 99 % 2022-08-19 00:00 respiration_rate 16 /min 2022-08-19 00:00 weight_metric 57.66 kg 2022-08-19 00:00 weight_standard 127.12 lb 2022-08-29 00:00 BMI 20.0 kg/m2 2022-08-29 00:00 BP_diastolic 52 mmHg 2022-08-29 00:00 BP_systolic 96 mmHg 2022-08-29 00:00 height_metric 170.18 cm 2022-08-29 00:00 height_standard 67 in 2022-08-29 00:00 weight_metric 58.05 kg 2022-08-29 00:00 weight_standard 127.98 lb 2022-10-10 00:00 BMI 19.3 kg/m2 2022-10-10 00:00 BP_diastolic 64 mmHg 2022-10-10 00:00 BP_systolic 124 mmHg 2022-10-10 00:00 height_metric 170.18 cm 2022-10-10 00:00 height_standard 67 in 2022-10-10 00:00 weight_metric 55.79 kg 2022-10-10 00:00 weight_standard 123 lb
[2022-11-08] MEDS ORDERED: FAMOTIDINE 20 MG/2 ML VIAL IVP STA (10:40)
[2022-11-08] MEDS ORDERED: KETOROLAC 15 MG/ML VIAL IVP STA (10:40)
[2022-11-08] MEDS ORDERED: SODIUM CHLORIDE 0.9% 1,000 ML IV STA ×2 (10:40)
[2022-11-08] MEDS ORDERED: ONDANSETRON 4 MG/2 ML VIAL IVP STA (10:40)
[2022-11-08 10:50] LABS: ALBUMIN 3.8 g/dL (3.2-5.5); ALBUMIN/GLOBULIN RATIO 1.1 (1.0-2.2); BILIRUBIN,TOTAL 0.4 mg/dL (0.2-1.0); CALCIUM 8.1 mg/dL (8.5-10.3); CREATININE 0.8 mg/dL (0.4-1.0); POTASSIUM 3.8 mmol/L (3.5-5.0); TOTAL PROTEIN 7.3 g/dL (6.7-8.2)
[2022-11-08 12:09] LABS: BILIRUBIN,URINE NEGATIVE (NEGATIVE); GLUCOSE, URINE (UA) NEGATIVE (NEGATIVE); KETONES,URINE (UA) NEGATIVE (NEGATIVE); LEUKOCYTE ESTERASE, URINE NEGATIVE (NEGATIVE); NITRITE,URINE NEGATIVE (NEGATIVE); OCCULT BLOOD,URINE NEGATIVE (NEGATIVE); PROTEIN,URINE NEGATIVE (NEGATIVE); UROBILINOGEN,URINE 0.2 (NORMAL) E.U./dL (NORMAL)
[2022-11-08 12:11] LABS: CLARITY,URINE CLEAR (CLEAR)
[2022-11-08 12:14] LABS: HCG UR QUAL NEGATIVE
[2022-11-08 12:48] VITALS: BP 101/63
[2022-11-08] MEDS ORDERED: DIPHENOX/ATROPINE 2.5/0.025 MG TABLET PO STA (13:39)
== END 2022-11-08 13:45 | disposition home or self-care (01) ==
LOC: ED 10:04
DX: R11.2 Nausea with vomiting, unspecified (principal); R19.7 Diarrhea, unspecified; E86.0 Dehydration; Z79.899 Other long term (current) drug therapy
CPT/HCPCS: 36415; 80053; 81003; 81025; 83690; 85025; 96361; 96374; 99283; A9270; 81001; 87086

== ENCOUNTER 2022-11-12 08:45 | Outpatient (CLI) | payer OTHER ==
[2022-11-12 19:44] LABS: CHLAMYDIA TRACHOMATIS DNA NEGATIVE (NEGATIVE); NEISSERIA GONORRHOEAE DNA NEGATIVE (NEGATIVE); TRICHOMONAS VAGINALIS DNA NEGATIVE (NEGATIVE)
== END 2022-11-12 09:00 | disposition home or self-care (01) ==
LOC: LAB.N 08:45
PROVIDERS: ATTEND Physician Assistant
DX: N30.00 Acute cystitis without hematuria (principal); Z20.2 Contact with and (suspected) exposure to infections with a predominantly sexual mode of transmission
CPT/HCPCS: 87086; 87491; 87591; 87661

== ENCOUNTER 2023-01-20 14:35 | Outpatient (CLI) | payer OTHER | END 2023-01-20 14:36 | disposition home or self-care (01) | LOC: LAB.N 14:35 | PROVIDERS: ATTEND Physician Assistant Medical | DX: Z71.9 Counseling, unspecified (principal) | CPT/HCPCS: 81599; 86480 ==

== ENCOUNTER 2023-02-14 08:00 | Outpatient (CLI) | payer MEDICAID, OTHER ==
[2023-02-14 18:33] LABS: FECAL OCCULT BLOOD (FIT) NEGATIVE (NEGATIVE)
[2023-02-18 13:11] LABS: GIARDIA LAMBLIA AG EIA Negative (Negative)
== END 2023-02-14 23:59 | disposition home or self-care (01) ==
LOC: LAB.N 08:00
PROVIDERS: ATTEND Registered Nurse
DX: R19.7 Diarrhea, unspecified (principal); K92.1 Melena
CPT/HCPCS: 82274; 87045; 87046; 87177; 87209; 87329; 87427

== ENCOUNTER 2023-02-16 09:13 | Emergency (ER) | payer MEDICAID, OTHER ==
--- OUTSIDE RECORDS SUMMARY | 2023-02-16 09:39 | EXTERNAL MEDICAL SUMMARY RPT | Continuity of Care Document ---
Author Name Unknown Address [address] [place] [address] Phone Organization [facility] Address [address] [place] [address] Phone Care Team Providers Care Inside Wireman Name Role Phone Maximo Sagastume Unavailable Unavailable Problems date description facility 2022-12-04 00:00 Normal gynecologic examination [facility] 2022-12-12 00:00 F[facility] testing [facility] 2022-12-12 09:46 Contact with and (suspected) ex posure to [address] 2022-12-13 00:03 Contact with and (suspected) ex posure to [address] 2022-12-17 15:12 Anorexia nervosa, binge eating/ purging type [facility] 2022-12-17 15:12 Unspecified ovarian cyst, unspe cified side [facility] 2022-12-17 15:12 Encounter for fertility testing [facility] Results/Labs test date facility value unit notes Social History date description facility 2022-12-04 00:00 Never smoked tobacco (finding) [facility] 2022-12-12 00:00 Never smoked tobacco (finding) [facility] Vital Signs date measurement value units 2022-12-04 00:00 BMI 19.3 kg/m2 2022-12-04 00:00 BP_diastolic 62 mmHg 2022-12-04 00:00 BP_systolic 116 mmHg 2022-12-04 00:00 height_metric 170.18 cm 2022-12-04 00:00 height_standard 67 in 2022-12-04 00:00 weight_metric 55.93 kg 2022-12-04 00:00 weight_standard 123.3 lb 2022-12-12 00:00 BMI 19.3 kg/m2 2022-12-12 00:00 BP_diastolic 62 mmHg 2022-12-12 00:00 BP_systolic 108 mmHg 2022-12-12 00:00 heart_rate 84 /min 2022-12-12 00:00 height_metric 170.18 cm 2022-12-12 00:00 height_standard 67 in 2022-12-12 00:00 o2_saturation 94 % 2022-12-12 00:00 weight_metric 55.79 kg 2022-12-12 00:00 weight_standard 123 lb
[2023-02-16 09:47] LABS: BASOPHILS % (AUTO) 0.8 %; EOSINOPHILS % (AUTO) 4.8 %; HCT - HEMATOCRIT 38.2 % (37.0-47.0); HGB - HEMOGLOBIN 12.4 g/dL (12.0-16.0); LYMPHOCYTES % (AUTO) 21.4 %; MEAN CORPUSCULAR HEMOGLOBIN 29.4 pg (27.0-31.0); MEAN CORPUSCULAR HGB CONC 32.5 g/dL (32.0-36.0); MEAN CORPUSCULAR VOLUME 90.5 fL (81.0-99.0); MEAN PLATELET VOLUME 8.4 fL (7.9-10.8); MONOCYTES % (AUTO) 11.9 %; NEUTROPHILS % (AUTO) 59.5 %; PLT - PLATELET COUNT 360 10^3/uL (130-450); RED BLOOD COUNT 4.22 10^6/uL (4.20-5.40); RED CELL DISTRIBUTION WIDTH 12.8 % (12.0-15.0); WHITE BLOOD COUNT 8.9 x10^3/uL (4.8-10.8)
[2023-02-16 09:48] LABS: BILIRUBIN,URINE NEGATIVE (NEGATIVE); GLUCOSE, URINE (UA) NEGATIVE (NEGATIVE); KETONES,URINE (UA) NEGATIVE (NEGATIVE); LEUKOCYTE ESTERASE, URINE NEGATIVE (NEGATIVE); NITRITE,URINE NEGATIVE (NEGATIVE); OCCULT BLOOD,URINE NEGATIVE (NEGATIVE); PROTEIN,URINE NEGATIVE (NEGATIVE); UROBILINOGEN,URINE 0.2 (NORMAL) E.U./dL (NORMAL)
[2023-02-16 09:49] LABS: SLIDE REVIEW? Indicated
[2023-02-16 09:50] LABS: CLARITY,URINE CLEAR (CLEAR); HCG UR QUAL NEGATIVE
[2023-02-16 09:55] LABS: ALBUMIN/GLOBULIN RATIO 1.4 (1.0-2.2); BILIRUBIN,TOTAL 0.3 mg/dL (0.2-1.0); CALCIUM 9.4 mg/dL (8.5-10.3); CREATININE 0.8 mg/dL (0.6-1.3); POTASSIUM 3.8 mmol/L (3.5-4.5); TOTAL PROTEIN 6.9 g/dL (6.4-8.9)
[2023-02-16 10:08] LABS: ABNORMAL LYMPHS % (MANUAL) 0 %
[2023-02-16 10:09] LABS: BAND NEUTROPHILS % (MANUAL) 2 %; BASOPHILS # (MANUAL) 0.1 10^3/uL (0-0.1); BASOPHILS % (MANUAL) 1 %; DIFFERENTIAL COMMENT MANUAL DIFFERENTIAL; EOSINOPHILS # (MANUAL) 0.5 10^3/uL (0-0.7); LYMPHOCYTES # (MANUAL) 2.2 10^3/uL (1.5-3.5); LYMPHOCYTES % (MANUAL) 25 %; MONOCYTES # (MANUAL) 0.9 10^3/uL (0.0-1.0); NEUTROPHILS # (MANUAL) 5.2 10^3/uL (1.5-6.6); PLATELET ESTIMATE, MANUAL NORMAL (130-450,000) (NORMAL); PLATELET MORPHOLOGY NORMAL APPEARANCE (NORMAL); RBC MORPHOLOGY (MULTIPLE) NORMAL APPEARANCE (NORMAL); WBC MORPHOLOGY (MULTIPLE) NORMAL APPEARANCE (NORMAL)
--- NOTE | 2023-02-16 10:09 | ED Physician Documentation ---
PD HPI NVD - Stated complaint Stated Complaint: DIARRHEA - Chief complaint Chief Complaint: Abd Pain - History obtained from History obtained from: Patient - History of Present Illness Timing - onset: How many weeks ago (1) Timing - duration: Weeks (1) Timing - details: Abrupt onset, Still present Associated symptoms: Abdominal pain, Other (diarrhea, vomiting, fever) Contributing factors: Other (history of colitis at age 18.). No: Sick contact, Bad food, Travel, Recent antibiotics, Alcohol use, Anticoagulated, Diabetes Improved by: BM Similar symptoms before: Diagnosis (colitis) Recently seen: Clinic - Additonal information Additional information: Lorraine Valdez is a 32-year-old female who was previously well and 1 week ago she developed some abdominal cramping with diarrhea nausea and vomiting and a low-grade fever fever lasted for 2 days when the fever broke she continued to have diarrhea her nausea and vomiting resolved she continues to have diarrhea and was seen at the walk-in clinic 2 days ago in [place] more stool specimen was obtained and she was placed on Lomotil. She feels she is not getting relief from the Lomotil. She has a prior history of colitis at age 18 with some bleeding. She has bleeding now on the paper and in the toilet. She has abdominal cramping. She feels that she has been able to keep up on her fluids. Review of Systems Constitutional: denies: Fever, Chills Eyes: denies: Decreased vision Ears: denies: Ear pain Nose: denies: Rhinorrhea / runny nose, Congestion Throat: denies: Sore throat Cardiac: denies: Chest pain / pressure, Palpitations Respiratory: denies: Dyspnea, Cough GI: reports: Abdominal Pain, Nausea, Vomiting, Diarrhea, Bloody / black stool : denies: Dysuria, Frequency Skin: denies: Rash Musculoskeletal: denies: Neck pain, Back pain, Extremity pain PD PAST MEDICAL HISTORY - Past Medical History Past Medical History: Yes Cardiovascular: None Respiratory: Asthma Neuro: None Endocrine/Autoimmune: None GI: GI bleed, Other LEAD PHP DEVELOPER: None : None HEENT: None Psych: Anxiety Musculoskeletal: None Derm: None Other Past Medical History: colitis - Past Surgical History Past Surgical History: Yes General: Colonoscopy - Present Medications Home Medications: Ambulatory Orders Medication Instructions Recorded Confirmed Albuterol Sulf [Ventolin Hfa 1 - 2 puffs INH Q4HR PRN 02/16/23 02/16/23 Inhaler] Diphenoxylate/Atropine [Lomotil] 1 each PO QID PRN 02/16/23 02/16/23 Famotidine [Pepcid] 20 mg PO DAILY 02/16/23 02/16/23 Lactobacillus Combination No.4 1 each PO DAILY 02/16/23 02/16/23 [Probiotic] metroNIDAZOLE [Flagyl] 500 mg PO BID 7 Days #14 tablet 02/16/23 predniSONE [Deltasone] 10 mg PO ONCE #26 tablet 02/16/23 - Allergies Allergies/Adverse Reactions: Allergies Allergy/AdvReac Type Severity Reaction Status Date / Time No Known Drug Allergies Allergy Verified 02/16/23 09:25 - Social History Does the pt smoke?: No Smoking Status: Never smoker Does the pt drink ETOH?: Yes ETOH Use: Beer Does the pt have substance abuse?: No - Immunizations Immunizations are current?: Yes - POLST Patient has POLST: No PD ED PE NORMAL - Vitals Vital signs reviewed: Yes (normal ) - General General: Alert and oriented X 3, No acute distress, Well developed/nourished - HEENT HEENT: Atraumatic, PERRL, EOMI - Neck Neck: Supple, no meningeal sign, No bony TTP - Cardiac Cardiac: RRR, No murmur - Respiratory Respiratory: No respiratory distress, Clear bilaterally - Abdomen Abdomen: Normal bowel sounds, Soft, Non distended, No organomegaly, Other (mild general tenderness without garding or focality ) - Back Back: No CVA TTP, No spinal TTP - Derm Derm: Normal color, Warm and dry, No rash - Extremities Extremities: No deformity, No edema - Neuro Neuro: Alert and oriented X 3, product communications manager 2-12 intact, No motor deficit, No sensory deficit, Normal speech Motor: Obeys Commands Verbal: Oriented - Psych Psych: Normal mood, Normal affect Results - Vitals Vitals: Vital Signs - 24 hr 02/16/23 02/16/23 02/16/23 09:23 13:36 13:37 Temperature 37.1 C 37.0 C Heart Rate 88 69 71 Respiratory 20 20 12 Rate Blood Pressure 113/62 110/77 110/77 O2 Saturation 98 97 99 Oxygen O2 Source Nasal cannula - Labs Labs: Laboratory Tests 02/16/23 02/16/2323 09:36 09:38 09:38 WBC 8.9 RBC 4.22 Hgb 12.4 Hct 38.2 MCV 90.5 MCH 29.4 MCHC 32.5 RDW 12.8 Plt Count 360 MPV 8.4 Neut # (Auto) Not Reportable Lymph # (Auto) Not Reportable [place] # (Auto) Not Reportable Eos # (Auto) Not Reportable Baso # (Auto) Not Reportable Absolute Nucleated RBC Not Reportable Total Counted 100 Band Neuts % (Manual) 2 Abnorm Lymph % (Manual) 0 Nucleated RBC % Not Reportable Neutrophils # (Manual) 5.2 Lymphocytes # (Manual) 2.2 Monocytes # (Manual) 0.9 Eosinophils # (Manual) 0.5 Basophils # (Manual) 0.1 Differential Comment MANUAL DIFFERENTIAL Manual Slide Review Indicated WBC Morphology NORMAL APPEARANCE Platelet Estimate NORMAL (130-450,000) Platelet Morphology NORMAL APPEARANCE RBC Morph Micro Appear NORMAL APPEARANCE Sodium 138 Potassium 3.8 Chloride 100 L Carbon Dioxide 34 H Anion Gap 4.0 L BUN 9 Creatinine 0.8 Estimated GFR (MDRD) 82 L Glucose 66 L Calcium 9.4 Total Bilirubin 0.3 AST 13 ALT 14 Alkaline Phosphatase 62 Total Protein 6.9 Albumin 4.0 Globulin 2.9 Albumin/Globulin Ratio 1.4 Lipase 13 Urine Color YELLOW Urine Clarity CLEAR Urine pH 6.0 Ur Specific Ethan 1.010 Urine Protein NEGATIVE Urine Glucose (UA) NEGATIVE Urine Ketones NEGATIVE Urine Occult Blood NEGATIVE Urine Nitrite NEGATIVE Urine Bilirubin NEGATIVE Urine Urobilinogen 0.2 (NORMAL) Ur Leukocyte Esterase NEGATIVE Ur Microscopic Review NOT INDICATED Urine Culture Comments NOT INDICATED Urine HCG, Qual NEGATIVE Procedures - IVC sono (time) 1000 Bedside IVC sono: IVC measures (cm) (0.87), Dehydration (est 1-2 liter deficit) PD Medical Decision Making - ED course Complexity details: reviewed old records, reviewed results, re-evaluated patient, considered differential, d/w patient Reviewed Lab Results: We reviewed a complete blood count showing a normal white blood cell count normal hemoglobin hematocrit and platelets normal indices normal differential chemistries were remarkable for an elevated carbon dioxide otherwise electrolytes kidney and liver function normal urinalysis unremarkable hCG negative. My interpretation of these results indicate the patient's condition is not overwhelming. These laboratory results do not contribute to a specific diagnosis. ED course: 32-year-old female with a history of recurrent diarrhea and now bloody diarrhea has had prior colonoscopy demonstrating ulceration in the colon and I suspect her diagnosis is ulcerative colitis. She is treated here in the emergency department with saline and Solu-Medrol. We will place her on a course of prednisone and metronidazole. She is found to be significantly dehydrated and is administered saline 2 L. Departure - Departure Disposition: 01 Home, Self Care Clinical Impression: Ulcerative colitis Qualifiers: Ulcerative colitis location: unspecified ulcerative colitis location Digestive disease complication type: with rectal bleeding Qualified Code(s): K51.911 - Ulcerative colitis, unspecified with rectal bleeding Instructions: ED Colitis Ulcerative Follow-Up: Francisca Moses PA-C [Provider Admit Priv/Credential] - Prescriptions: predniSONE [Deltasone] 10 mg PO ONCE #26 tablet metroNIDAZOLE [Flagyl] 500 mg PO BID 7 Days #14 tablet Comments: Lorraine, today it looks like you likely have some inflammatory bowel disease. Today we are starting you on some medication that we hope will induce a remission. We are starting you on a course of prednisone and an antibiotic called metronidazole. Do not drink alcohol while you are taking the metronidazole. Our expectations with treatment are improvement in your diarrhea resolution of the bleeding and resolution of your pain. A formal diagnosis will need to be established by biopsy. Follow-up with HUMBERTO Moses for a referral to a onsite case manager for biopsy and management. There are a lot of ways that inflammatory bowel disease is managed and they are specific to the type of inflammatory bowel disease. A follow-up is indicated.Medications have been E scribed to the [facility] in [place]. Discharge Date/Time: 02/16/23 13:40
[2023-02-16] MEDS: SODIUM CHLORIDE 0.9% 1,000 ML IV STA (11:29)
[2023-02-16] MEDS: methylPREDNISolone SUCCINATE 125 MG/2 ML VIAL IVP STA (11:34)
[2023-02-16 13:42] VITALS: BP 110/77; O2SAT 99
== END 2023-02-16 13:40 | disposition home or self-care (01) ==
LOC: ED 09:13
DX: K51.911 Ulcerative colitis, unspecified with rectal bleeding (principal); Z79.899 Other long term (current) drug therapy
CPT/HCPCS: 36415; 80053; 81001; 81003; 81025; 83690; 85025; 87086; 96361; 96374; 99284